=== PATIENT | male | born 1960 | race Caucasian/White ===

== ENCOUNTER 2022-11-22 08:55 | Inpatient (IN) | payer OTHER, SELFPAY ==
[2022-11-22] VITALS (20 sets, daily range): BP systolic 71–219; BP diastolic 20–116; PULSE 64–143; RESP 16–20; TEMP 36.4; O2SAT 95–100; BMI 29.7
--- NOTE | ~2022-11-22 | US_ITS ---
EXAMINATION: US renal BI DATE: 11/23/2022 20:43 INDICATION: Acute renal insufficiency TECHNIQUE: Multiple ultrasound grayscale images of the kidneys were obtained. COMPARISON: None. FINDINGS: The right kidney measures 11.7 x 5.9 x 5.5 cm. The left kidney measures 11.5 x 5.7 x 6.5 cm. The kidn eys demonstrate normal echogenicity. There is no hydronephrosis in either kidney. No stones identifi ed. The bladder is not visualized, likely decompressed.. IMPRESSION: 1. Normal kidneys without hydronephrosis. Reviewed, dictated and finalized at location A. COMMUNICATIONS
--- NOTE | ~2022-11-22 | US_ITS ---
Limited Abdominal Sonogram: Real-time sonographic imaging of the right upper quadrant was performed. Clinical History: Abnormal LFTs Findings: The liver appears mildly echogenic, with no evidence of mass lesion or bile duct dilatatio n. Main portal vein demonstrates normal direction of flow. The gallbladder is well distended, without visible gallstone. 4 mm gallbladder wall polyp noted. Gallbladder wall is mildly thickened to 4 mm. The common bile duct measures 7 mm. The visualized pancreas, aorta, and IVC are unremarkable. Right pleural effusion noted. Impression: Right pleural effusion noted. 4 mm gallbladder wall polyp. Mild gallbladder wall thickening, nonspecific. No visible gallstone evident, and there is negative so nographic Sepulveda's sign. Reviewed, dictated and finalized at [facility]. LLIGENCE OPERATIONS Impression: Right pleural effusion noted. 4 mm gallbladder wall polyp. Mild gallbladder wall thickening, nonspecific. No visible gallstone evident, an d there is negative sonographic Sepulveda's sign.
--- NOTE | ~2022-11-22 | CT_ITS ---
EXAMINATION: CT abdomen pelvis wo con DATE: 11/23/2022 12:27 INDICATION: Difficulty urinating. TECHNIQUE: Computed tomography (CT) of the abdomen and pelvis was performed without intravenous contr ast. Automated exposure control and iterative reconstruction technique were employed. The dose-length product was 771.53 mGy-cm. COMPARISON: None. FINDINGS: The visualized portions of the lung bases demonstrate moderate-sized pleural effusions. The re is dependent atelectasis bilaterally. Cardiomegaly is noted. There are coronary artery calcificati ons. No pericardial effusion. There is diffuse hepatic steatosis. The spleen is normal. The gallbladd er is normal in size. Gallbladder wall thickening is likely secondary to interstitial edema. The panc reas, adrenal glands, and kidneys are normal. There is no urolithiasis. There are bilateral inguinal hernias containing fat. There are no dilated loops of bowel. The appendix is normal. There are no pat hologically enlarged lymph nodes. There is trace ascites. There is moderate lumbar spondylosis. IMPRESSION: 1. Moderate-sized pleural effusions. 2. Diffuse hepatic steatosis. Reviewed, dictated and finalized at location A. ARCH MANAGER
--- NOTE | ~2022-11-22 | US_ITS ---
EXAMINATION: US venous doppler [facility] DATE: 11/28/2022 12:50 INDICATION: Lower limb swelling. TECHNIQUE: Grayscale ultrasound images without and with compression and Doppler ultrasound images of the bilateral lower extremity veins were obtained. COMPARISON: None. FINDINGS: The visualized portions of right common femoral vein, profunda (deep) femoral vein, femoral vein, pop liteal vein, peroneal veins, posterior tibial veins, and greater saphenous vein outflow are patent. The visualized portions of left common femoral vein, profunda femoral vein, femoral vein, popliteal v ein, peroneal veins, posterior tibial veins, and greater saphenous vein outflow are patent. IMPRESSION: 1. No deep venous thrombosis. Reviewed, dictated and finalized at location A. ING MACHINE OPERATOR
--- NOTE | ~2022-11-22 | XR_ITS ---
EXAMINATION: XR chest 1V portable DATE: 11/22/2022 09:37 INDICATION: Cough. Tachycardia. TECHNIQUE: A single frontal view of the chest was obtained on 2 radiographs. COMPARISON: None. FINDINGS: There is mild atelectasis in right mid and lower lung zones and left lower lung zone. No pl eural effusion or pneumothorax. The heart size is normal. IMPRESSION: 1. Mild atelectasis in right mid and lower lung zones and left lower lung zone. I called this result to Dr. Faust at 9:47 AM. Reviewed, dictated and finalized at location A. MATE HOOPS TRAINER
--- NOTE | ~2022-11-22 | NM_ITS ---
EXAMINATION: NM hollie stress w perfusion DATE: 11/29/2022 10:08 INDICATION: Congestive heart failure. Elevated troponin. TECHNIQUE: Rest images were obtained following intravenous administration of 10.5 mCi Tc99m tetrofosm in (Myoview). The patient was infused intravenously with Lexiscan (regadenoson). Then, 34.3 mCi Tc99m tetrofosmin (Myoview) was administered intravenously, and supine and prone stress images were obtain ed. Data was reconstructed into short axis and horizontal and vertical long axis SPECT images. Gated SPECT images were also obtained. COMPARISON: CT abdomen and pelvis 11/23/2022 FINDINGS: There is no definite reversible or fixed perfusion abnormality to suggest ischemia or infar ction. There is no segmental wall motion abnormality. Left ventricular ejection fraction measures 3 7%. IMPRESSION: 1. No definite ischemia or infarct. 2. Global hypokinesis with left ventricular ejection fraction measuring 37%. Reviewed, dictated and finalized at location A. GER REPORTING
--- NOTE | ~2022-11-22 | XR_ITS ---
XR chest 1V portable DATE: 11/28/2022 08:05 INDICATION: Congestive heart failure TECHNIQUE: Portable upright AP chest on November 28, 2022 at 0753 hours COMPARISON: November 22, 2022 portable AP chest at 0934 hours FINDINGS: There is prominence of the minor fissure consistent with subpleural edema. There is pulmona ry vascular congestion and redistribution. Delma B-lines are noted, likely consistent with pulmonary interstitial edema. There are bilateral predominantly central and particularly lower lung zone infil trates and/or atelectasis, which may be due to pulmonary edema; pneumonia and atelectasis are not exc luded. There is minimal if any pleural effusion. No pneumothorax. Heart size appears within normal range. IMPRESSION: Pulmonary vascular congestion, subpleural edema, pulmonary interstitial edema Bilateral central and particularly lower lung zone infiltrates which may be due to pulmonary edema; p neumonia and atelectasis are not excluded The infiltrates are increased since November 2022 Reviewed, dictated and finalized at location A. HANDISE APPRAISER IMPRESSION: Pulmonary vascular congestion, subpleural edema, pulmonary intersti tial edema Bilateral central and particularly lower lung zone infiltrates which may be due to pulmonary edema; pneumonia and atelectasis are not excluded The infiltrates are increased since November 2022
--- NOTE | 2022-11-22 09:06 | ECG_ITS ---
Measurements Intervals [place] Rate: 143 P: NH: 0 QRS: 47 QRSD: 95 T: 0 QT: 189 QTc: 291 Interpretive Statements ATRIAL FLUTTER/TACHYCARDIA WITH RAPID VENTRICULAR RESPONSE SEPTAL MYOCARDIAL INFARCTION , OF INDETERMINATE AGE [40+ ms Q WAVE IN V1/V2] NO PREVIOUS ECG AVAILABLE FOR COMPARISON Electronically Signed On 11-22-2022 16:13:06 SELLING UNDERWRITER by Teo Cho M.D.
--- NOTE | 2022-11-22 09:07 | ED.GENADULT ---
HPI - General Adult General Chief complaint: Arrhythmia/Palpitations Stated complaint: Elevated heart rate Time Seen by Provider: 11/22/22 08:58 Source: RN notes reviewed History of Present Illness HPI narrative: Patient presents emergency department from home for chest heaviness. Patient states approximately a week and a half ago he began to feel like he had bronchitis he states the bronchitis was a feeling of some heaviness in his chest states he also had some mild nasal congestion but does have a history of consistent nasal congestion states at that time he did begin taking Mucinex DM but did not take it today but has been taking it regularly over the past week and a half patient states he does check his blood pressure at home and has a wrist monitor and has been noticing that his heart rate has been elevated over the past 1 week he states that he began to have some more heaviness in his chest last night and that prompted her to come to the emergency department states he has not had any coughing he denies any swelling of his legs he denies any fevers or chills sore throat cough shortness of breath abdominal pain nausea vomiting or any other symptoms he denies any previous cardiac history Related Data Home Medications Medication Instructions Recorded Confirmed No Home Medications 11/22/22 11/22/22 Allergies Allergy/AdvReac Type Severity Reaction Status Date / Time No Known Allergies Allergy Verified 11/22/22 09:55 Review of Systems Review of Systems: Gen.: Denies fevers or chills ENT: D reports nasal congestion Respiratory: Denies shortness of breath or cough CV: See HPI GI: Denies abdominal pain nausea, emesis or diarrhea Musculoskeletal: Denies back pain or muscle pain Neuro: Denies numbness, tingling, weakness or focal weakness Skin: Denies rash Except as documented, all other systems reviewed and negative [facility] Past Medical History Medical History (Updated 11/22/22 @ 13:24 by Chad Faust DO) Patient denies significant medical history Family History Family History (Updated 11/22/22 @ 12:58 by Lindsey Mckeon RN) Sibling Asthma Mother Diabetes mellitus Father Hypertension Social History Social History (Updated 11/22/22 @ 09:20 by Chad Faust DO) Smoking status: Former smoker Tobacco type: cigarettes Alcohol intake: never Substance use: never Lack of Transportation: No Lack of Food: Never True Current Housing: I Have Housing Concerned About Future Housing: No Difficulty Paying Gas/Electric Bills: No Difficulty Paying for Meds: No Currently Unemployed: No Education: Bachelor's Degree Difficulty w/ Childcare or Family Care: No Spiritual care concerns: No Exam Narrative: APPEARANCE: No acute distress, nontoxic, resting in bed EYES: EOMI HEENT: Normocephalic, atraumatic, nares patent, oral mucosa moist, no erythema or exudate posterior pharynx RESPIRATORY: No respiratory distress Clear to auscultation bilaterally with no rhonchi wheezing or rales. CARDIOVASCULAR: Tachycardic and regular without murmurs rubs or gallops. ABDOMINAL: Soft, nontender, nondistended, no rebound or guarding MUSCULOSKELETAl: Moves all extremities. No clubbing, cyanosis 2+ edema bilateral lower extremities NEURO: Awake and alert. Following commands, speech normal, no focal deficits SKIN:: Warm, dry. No rashes lesions or abrasions PSYCHIATRIC: Normal affect/mood, Course Course Emergency Course: Called and discussed with Dr. Parish presentation work-up discussed as a flutter likely present for the past week he requested patient be started on Cardizem drip at this time we will see him for request patient received single dose of Lovenox Discussed with Dr. Jha presentation work-up agrees with admission to hospital Discussed with patient and family results of workup and diagnosis. Discussed need for admission. Patient and family understand and agree to current treatment renee
[2022-11-22 09:15] LABS: Basophils Percent Auto 0.5 % (0.2-1.2); Eosinophils Absolute Auto 0.1 K/mm3 (0-0.3); Eosinophils Percent Auto 0.7 % (0-4.4); Hemoglobin 14.3 g/dL (14.0-18.0); Immature Granulocyte Absolute 0.01 K/mm3 (0.00-0.031); Immature Granulocyte Percent A 0.1 % (0-0.5); Lymphocytes Absolute Auto 1.59 K/mm3 (0.9-3.2); Lymphocytes Percent Auto 21.3 % (18.3-44.2); Mean Corpuscular HGB Conc 33.3 g/dl (32-36); Mean Corpuscular Hemoglobin 31.8 pg (26-34); Mean Corpuscular Volume 95.6 fl (80-100); Monocytes Absolute Auto 0.8 K/mm3 (0.1-0.6); Monocytes Percent Auto 11.3 % (2.6-8.5); Neutrophils Absolute Auto 4.9 K/mm3 (1.3-6.7); Neutrophils Percent Auto 66.1 % (45.5-73.1); Platelet Count Result 305 k/mm3 (150-375); Red Cell Distribution Width 13.4 % (11.5-14.5); White Blood Count 7.5 K/mm3 (4.5-10.0)
[2022-11-22 09:27] LABS: INR 1.1; Prothrombin Time 13.5 Seconds (11.1-14.7)
[2022-11-22 09:28] LABS: Alanine Aminotransferase 37 U/L (6-50); Albumin Level 4.1 g/dL (3.5-5.1); Alkaline Phosphatase 58 U/L (38-126); Anion Gap 10 mmol/L (8-16); Aspartate Amino Transferase 36 U/L (17-59); Bilirubin,Total 0.9 mg/dL (0.2-1.3); Blood Urea Nitrogen 15 mg/dL (9-20); Calcium 9.1 mg/dL (8.4-10.2); Carbon Dioxide 27 mmol/L (22-30); Chloride 96 mmol/L (98-107); Estimated CRCL calculation 82 ml/min; Estimated Glomerular Filt Rate > 60; Glucose 323 mg/dL (65-110); Lipase 89 U/L (23-300); Magnesium 1.6 mg/dL (1.6-2.3); Partial Thromboplastin Time 26.3 SECONDS (22.3-36.8); Potassium 4.7 mmol/L (3.4-5.0); Sodium 133 mmol/L (137-145)
[2022-11-22 09:38] LABS: Troponin I 0.018 ng/mL (0.000-0.034)
[2022-11-22] MEDS: dilTIAZem 100 MG/100 ML 100 MG/100 ML BAG IV CONT (10:08)
[2022-11-22 10:09] LABS: NT Pro B Type Natriuretic Pept 1930 pg/mL (19.9-100)
[2022-11-22 10:27] LABS: Influenza A QL RT-PCR Negative (Negative); Influenza B QL RT-PCR Negative (Negative); SARS-CoV-2 RNA PCR Negative
[2022-11-22] MEDS: ENOXAPARIN 100 MG/ML SYRINGE 94 MG SUB-Q (11:57)
--- NOTE | 2022-11-22 12:52 | ADMGEN ---
This patient, Oscar Dodd, was admitted to IMU Room 209-01. Patient/family oriented to hospital policies and general routines including ID bracelet, bed and alarms, visiting hours, pain management, procedures, bathroom and other care routines, personal items, smoking policy, room service/diet, and visiting hours. Information on how to activate the Rapid Response Team has been discussed. Patient/Family are encouraged to report perceived risks to care and to ask questions if they do not understand what they are told or what they should do.
--- NOTE | 2022-11-22 13:00 | PM.IMHP ---
H&P: HPI History of Present Illness Date/Time: 11/22/22 13:00 Chief Complaint: Fast heart rate. Narrative: This is a pleasant 62-year-old male with hypertension and diabetes who presented to the emergency department for evaluation fast heart rate. Patient provided the following history. He has had mild chest congestion and heaviness for the past 1.5 weeks and he has been taking Mucinex DM and Zyrtec as he initially attributed to his sinuses draining. He tells me that it feels as though he has fluid stuck in his throat and upper chest though he has not been able to cough anything up. He has also had some nausea and mild shortness of breath with exertion. Guga-uoi-nrnlpfy medications have not helped and he went to an urgent care today for evaluation as he thought he was perhaps developing bronchitis. He denies fever, sinus congestion, productive cough, vomiting, and diarrhea. There he was found to be tachycardic and he was directed to the emergency department. EKG in the ED showed atrial flutter with rapid ventricular response been started on a Cardizem drip with some improvement in his rate. He is being admitted in this setting for further workup. He has no known history of cardiac dysrhythmia though he has noticed that his heart rate has been elevated over the past 1 week when checking his blood pressures daily. He is also noticed that his glucose has been creeping up over the past year and he has had readings over 250 recently. He is not currently on medication for his hypertension or diabetes as he recently moved to the area and he has not yet established with a primary care doctor. He denies significant caffeine and alcohol use. No known history or concerns for sleep apnea. No history of thyroid disease. He has not had exertional chest pain or shortness of breath. Review of Systems Review of Systems: Twelve systems were reviewed and are negative except for as per HPI. [facility] Past Medical History Medical History (Updated 11/22/22 @ 22:23 by Ellen Del Toro PA-C) Hyperlipidemia Hypertension Type 2 diabetes mellitus Surgical History Surgical History (Updated 11/22/22 @ 22:23 by Ellen Del Toro PA-C) No significant past surgical history Family History Family History Sibling Asthma Mother Diabetes mellitus Father Hypertension Social History Social History (Updated 11/22/22 @ 22:24 by Ellen Del Toro PA-C) Social History: Surrogate medical decision maker: Jeniffer Dodd, sister. Code status: Full code. Smoking status: Former smoker Tobacco type: cigarettes Alcohol intake: never Substance use: never Lack of Transportation: No Lack of Food: Never True Current Housing: I Have Housing Concerned About Future Housing: No Difficulty Paying Gas/Electric Bills: No Difficulty Paying for Meds: No Currently Unemployed: No Education: Bachelor's Degree Difficulty w/ Childcare or Family Care: No Spiritual care concerns: No Meds Home Medications and Allergies Home Medications Medication Instructions Recorded Confirmed Type No Home Medications 11/22/22 11/22/22 History Allergies Allergy/AdvReac Type Severity Reaction Status Date / Time No Known Allergies Allergy Verified 11/22/22 09:55 Vital Signs Vital Signs - 24 hr 11/22/22 09:10 11/22/22 10:08 11/22/22 09:54 Temperature 97.5 F L Pulse Rate 143 H 142 H 143 H Respiratory Rate 16 17 Blood Pressure 142/116 H 219/99 H 127/103 H Pulse Oximetry 100 97 Oxygen Delivery Room Air 11/22/22 11:03 11/22/22 11:58 11/22/22 12:58 Temperature Pulse Rate 143 H 142 H Respiratory Rate 18 17 Blood Pressure 119/93 H 113/97 H Pulse Oximetry 95 97 Oxygen Delivery Room Air 11/22/22 12:23 11/22/22 12:42 11/22/22 13:35 Temperature 97.6 F Pulse Rate 140 H 142 H 143 H Respiratory Rate 16 16 Blood Pressure 115/95 H 112/88 Pulse Oximetry 99 98 Oxyg
[2022-11-22 13:32] LABS: Troponin I 0.017 ng/mL (0.000-0.034)
[2022-11-22] MEDS: METOPROLOL TARTRATE 25 MG TABLET PO ×2 (13:35→20:15)
[2022-11-22 14:38] LABS: Cholesterol 145 mg/dL (0-200); HDL Direct 39 mg/dL; Triglycerides 110 mg/dL (<150)
[2022-11-22 14:49] LABS: LDL Cholesterol Direct 75 mg/dL
[2022-11-22 15:38] LABS: Troponin I 0.017 ng/mL (0.000-0.034)
--- NOTE | 2022-11-22 16:11 | PC.NURSE ---
Spoke with Dr. Parish regarding Cardizem drip. Cardizem drip was order by ED, which is a one bag order. New order to continue Cardizem gtt at 10mg/hr, order an apnea link tonight to r/o JOSHUA, and to start Metoprolol Tartrate 25mg PO q8h, holding for SBP <95
--- NOTE | 2022-11-22 16:14 | PM.CNCAR ---
Assessment and Plan Assessment and plan (1) Atrial flutter with rapid ventricular response: Code(s): I48.92 - Unspecified atrial flutter Status: Acute Assessment and Plan: Patient presents with persistent atrial flutter with rapid ventricular response with suspected duration of nearly 2 months. He is not decompensated heart failure clinically but has not elevated pro BNP of 1930 which is very likely related to persistent atrial flutter with RVR. Serial troponins are negative to date and he denies clear anginal symptoms in that his symptoms have been more less constant. Discussed the pathophysiology and management options of atrial tachyarrhythmias including atrial flutter namely medications, rate versus rhythm control, STEVAN prior to cardioversion to exclude intracardiac thrombus and associated risks and benefits. Discussed importance of systemic anticoagulation as his CHADS2 Vasc score is at least 2 for hypertension and diabetes mellitus. Discussed importance of anticoagulation to reduce embolic stroke risk balance with associated bleeding risk. We also discussed managed with AV michelle blocking agents as well as antiarrhythmic therapy as clinically relevant. We discussed importance of compliance with follow-up, medications and anticoagulation moving forward. Discussed risks, benefits and alternatives to STEVAN. Continue diltiazem infusion for now, add oral beta-jakub for additional heart rate control. NPO after midnight for anticipated STEVAN guided cardioversion in attempt to restore sinus rhythm tomorrow morning. Further recommendation to follow. We discussed risk for tachycardia induced cardiomyopathy given persistence of tachyarrhythmia as well on the need for heart rate and rhythm control. We discussed additional management with electrophysiology for catheter based approaches including ablation of atrial flutter although EP services are not available at this institution. Patient verbalized understanding and agreed with plan of care. All questions answered to his satisfaction. Continue systemic anticoagulation transition to oral anticoagulant Eliquis 5 mg b.i.d.. Care coordination to cyr with insurance. TSH normal, electrolytes stable. (2) Diabetes mellitus: Code(s): E11.9 - Type 2 diabetes mellitus without complications Status: Acute Assessment and Plan: Poorly controlled, management per primary service. Hyperglycemic at presentation. Check hemoglobin A1c. (3) Hypertension: Code(s): I10 - Essential (primary) hypertension Status: Acute Assessment and Plan: BP elevated initially improvement diltiazem infusion. History of Present Illness History of Present Illness Consult date/time: Date of service: 11/22/22 16:14 Requesting physician: Chad Faust, Consult reason: Other (Atrial flutter with RVR) Reason For Visit: atrial flutter with rvr,chf Narrative: Patient is a very pleasant 62-year-old male with a past medical history significant for diabetes mellitus, hypertension, and hyperlipidemia who reports he 1st noted an elevated heart rate when at the gym in early September 2020 but did not return to exercise subsequently. He also did not check his heart rate or blood pressure until recently perhaps 1 week or so ago where again he noted his heart rate was 120-140 beats per minute. He denied palpitations at any time. He then began to notice worsening fatigue throughout the day, some exertional dyspnea and mild discomfort diffusely in his chest that noted exacerbation. Due to progressive nature of his symptoms of fatigue and the fact that he knows heart rate was elevated he then came to the emergency department for further evaluation. He had a dry cough and felt he might have had bronchitis a given persistence of symptoms felt he should seek attention. He denies significant lower extremity edema, orthopnea PND. No near-syncope, syncope or significant dizziness. He has
[2022-11-22] MEDS: INSULIN ASPART (*BKC) 100 UNITS/ML SUB-Q (16:36)
[2022-11-22] MEDS: MAGNESIUM SULF 2 GM/WATER 50ML 2 GM/50 ML BAG IVPB (16:36)
[2022-11-22 16:41] LABS: Glucose Point of Care 361 mg/dl (65-105)
[2022-11-22] MEDS: ONDANSETRON INJ 4 MG/2 ML VIAL IV PUSH (17:41)
[2022-11-22] MEDS: dilTIAZem 100 MG/100 ML 100 MG/100 ML BAG 10 MG IV CONT (20:14)
[2022-11-22] MEDS: APIXABAN 5 MG TABLET PO (20:15)
[2022-11-22] MEDS: ACETAMINOPHEN 325 MG TABLET 650 MG PO (20:21)
[2022-11-22 20:40] LABS: Glucose Point of Care 271 mg/dl (65-105)
[2022-11-23] VITALS (23 sets, daily range): BP systolic 84–115; BP diastolic 59–76; PULSE 55–111; RESP 20–21; TEMP 35.6–37; O2SAT 96–100
--- NOTE | 2022-11-23 | ECHO_ITS ---
Patient Info Name: Oscar Dodd Age: 62 years : 1960 Gender: Male Ht: 69 in Wt: 206 lbs BSA: 2.16 m2 HR: 66 bpm BP: 100 / 74 mmHg Heart Rhythm: Atrial Flutter Technical Quality: Good Exam Date: 11/23/2022 9:40 AM Exam Location: [facility] Pulmonary Exam Room: 209 Patient Status: Inpatient Admit Date: 11/23/2022 Staff Ordering Physician: Jose Ramon Parish MD Records Management Director: Brittanie Harley RDCS Attending Provider: Luisa Jha DO Referring Physician: Jem BEARDEN; Exam Type: CA echo doppler color flow Study Info Indications - atrial flutter Complete two-dimensional, color flow and Doppler transthoracic echocardiogram is performed. Summary 1. Complete two-dimensional, color flow and Doppler transthoracic echocardiogram is performed. 2. Right ventricular chamber dimension is normal. 3. Right ventricular systolic function is moderately reduced. TAPSE 1.3. 4. Left ventricular systolic function is moderately reduced, estimated at 35-40%. 5. Left ventricular chamber dimension is normal. 6. There is no increased left ventricular wall thickness. 7. The left ventricular diastolic function is indeterminate. 8. Left atrial chamber dimension is moderately enlarged. 9. Right atrial chamber dimension is moderately enlarged. 10. There is mild mitral valve regurgitation. 11. There is mild to moderate tricuspid valve regurgitation. 12. Mild pulmonary hypertension, estimated pulmonary arterial systolic pressure is 35 mmHg. Left Ventricle Left ventricular chamber dimension is normal. Left ventricular systolic function is moderately reduced, estimated at 35-40%. There is no increased left ventricular wall thickness. The left ventricular diastolic function is indeterminate. Right Ventricle Right ventricular chamber dimension is normal. Right ventricular systolic function is moderately reduced. TAPSE 1.3. Left Atria Left atrial chamber dimension is moderately enlarged. Right Atria Right atrial chamber dimension is moderately enlarged. Aortic Valve The aortic valve is trileaflet. There is no aortic valve stenosis. There is no aortic valve regurgitation. There is mild aortic valve calcification. Pulmonic Valve The pulmonic valve is not well visualized. Mitral Valve The mitral valve has thickened leaflets. There is mild mitral valve regurgitation. The mitral valve annulus is mildly calcified. Tricuspid Valve The tricuspid valve leaflets are normal. There is mild to moderate tricuspid valve regurgitation. Mild pulmonary hypertension, estimated pulmonary arterial systolic pressure is 35 mmHg. Pericardium/Pleural Left pleural effusion. The pericardium appears normal. There is no pericardial effusion. Inferior Vena Cava Normal inferior vena cava with >50% collapse upon inspiration consistent with normal right atrial pressure, 5 mmHg. Aorta The aortic root size at the sinus of Valsalva is normal. There is mild-moderate aortic atherosclerosis. Left Ventricular Outflow Tract Name Value Normal LVOT 2D LVOT Diameter 2.1 cm LVOT Doppler LVOT Peak Gradient
[2022-11-23] MEDS: SODIUM CHLORIDE 0.9% IV 1,000 ML 999 ML IV CONT (00:04)
[2022-11-23 00:47] LABS: Glucose Point of Care 281 mg/dl (65-105)
[2022-11-23] MEDS: MIDODRINE HCL 10 MG TABLET PO (01:29)
[2022-11-23] MEDS: MIDODRINE HCL 2.5 MG TABLET 5 MG PO (01:29)
[2022-11-23 05:01] LABS: Anion Gap 17 mmol/L (8-16); Blood Urea Nitrogen 18 mg/dL (9-20); Calcium 8.2 mg/dL (8.4-10.2); Carbon Dioxide 17 mmol/L (22-30); Chloride 95 mmol/L (98-107); Estimated CRCL calculation 36 ml/min; Estimated Glomerular Filt Rate 36; Glucose 248 mg/dL (65-110); Magnesium 2.2 mg/dL (1.6-2.3); Potassium 5.9 mmol/L (3.4-5.0); Sodium 129 mmol/L (137-145)
--- NOTE | 2022-11-23 07:32 | P.PNIM_ITS ---
Progress Note: A&P Assessment and Plan (1) Atrial flutter with rapid ventricular response: Code(s): I48.92 - Unspecified atrial flutter Status: Acute Assessment and Plan: Cardiology consulted and managing. * He was treated with IV Cardizem, but this was stopped around 2300 on 11/22 due to hypotension BP 71/20 and bradycardia HR 54 bpm. * Metoprolol tartrate 25 mg Q8 hours was also initiated by Cardiology, but to be held unless HR sustained >100 bpm. * [id number] 2, HAS-BLED 1. He was treated with Lovenox 1 mg/kg SQ x1 in the ED and started on Eliquis upon admission. * Plan for STEVAN with cardioversion was deferred due to JACLYN, hyperkalemia and acute nausea. (2) Hypertension: Qualifiers: Hypertension type: primary hypertension Qualified Code(s): I10 - Essential (primary) hypertension Code(s): I10 - Essential (primary) hypertension Status: Chronic Assessment and Plan: Now with hypotension after Cardizem drip started. Monitor off antihypertensives. (3) Hyperlipidemia: Qualifiers: Hyperlipidemia type: mixed hyperlipidemia Qualified Code(s): E78.2 - Mixed hyperlipidemia Code(s): E78.5 - Hyperlipidemia, unspecified Status: Chronic Assessment and Plan: LDL 75, HDL 39, triglycerides 110 * He reports that he is not been on cholesterol medication in >5 years (4) Type 2 diabetes mellitus: Qualifiers: Diabetes mellitus halfway insulin use: without superintendent container terminal use Diabetes mellitus complication status: with hyperglycemia Qualified Code(s): E11.65 - Type 2 diabetes mellitus with hyperglycemia Code(s): E11.9 - Type 2 diabetes mellitus without complications Status: Chronic Assessment and Plan: Uncontrolled. He was previously taking metformin but not in the past 5 years. * A1c 10%, glucose 245 to 323. * We discussed basal-bolus insulin therapy and he does not want to start insulin injections. * Will plan to resume metformin if patient's renal function improves by discharge. * Given reduced EF on echocardiogram, he would benefit from initiation of SGLT-2 medication prior to discharge. * For now will treat with lantus 10 units at HS, aspart low-dose sliding scale TID meals. Adjust therapy as needed for goal glucose <180 mg/dL. * Accu-checks AC/HS with hypoglycemia protocol. (5) JACLYN (acute kidney injury): Code(s): N17.9 - Acute kidney failure, unspecified Status: Acute Assessment and Plan: BUN 18, creatinine 1.9, eGFR 36, K 5.9, bicarb 17, and corrected sodium 131. Significantly increased from admission. UOP appears low 150 mL +2 voids since admission and he was given 1L NS bolus. * 11/23 Repeat BMP 0800 shows creatinine 2.3, K 7.7, bicarb 18, sodium 130. Bicarb drip initiated. * Consult Nephrology and appreciate recommendations. * Urine sodium 23, urine creatinine 262, FENa 0.2% pre-renal. given Echocardiogram findings, judicious fluid resuscitation warranted. * Monitor strict I/O. Patient refused indwelling verdugo catheter. * Bladder scan Q6 hours and straight cath if >300 mL residual. * Check renal US. * CT abd/pelvis w/o contrast without evidence of urinary obstruction. Bladder scan 0 mL per nursing this morning. (6) Hyperkalemia: Code(s): E87.5 - Hyperkalemia Status: Acute Assessment and Plan: K5.9, repeat BMP to ensure accuracy and avoid pseudohyperkalemia, although creatinine significantly increased and this may be secondary to JACLYN. * Repeat BMP 0800 worsening K 7.7. EKG with prolonged QTc 542, repeat EKG improved. * Giv
--- NOTE | 2022-11-23 07:32 | PM.IMPN ---
Progress Note: A&P Assessment and Plan (1) Atrial flutter with rapid ventricular response: Code(s): I48.92 - Unspecified atrial flutter Status: Acute Assessment and Plan: Cardiology consulted and managing. He was treated with IV Cardizem, but this was stopped around 2300 on 11/22 due to hypotension BP 71/20 and bradycardia HR 54 bpm. Metoprolol tartrate 25 mg Q8 hours was also initiated by Cardiology, but to be held unless HR sustained >100 bpm. [id number] 2, HAS-BLED 1. He was treated with Lovenox 1 mg/kg SQ x1 in the ED and started on Eliquis upon admission. Plan for STEVAN with cardioversion was deferred due to JACLYN, hyperkalemia and acute nausea. (2) Hypertension: Qualifiers: Hypertension type: primary hypertension Qualified Code(s): I10 - Essential (primary) hypertension Code(s): I10 - Essential (primary) hypertension Status: Chronic Assessment and Plan: Now with hypotension after Cardizem drip started. Monitor off antihypertensives. (3) Hyperlipidemia: Qualifiers: Hyperlipidemia type: mixed hyperlipidemia Qualified Code(s): E78.2 - Mixed hyperlipidemia Code(s): E78.5 - Hyperlipidemia, unspecified Status: Chronic Assessment and Plan: LDL 75, HDL 39, triglycerides 110 He reports that he is not been on cholesterol medication in >5 years (4) Type 2 diabetes mellitus: Qualifiers: Diabetes mellitus rodent exterminator insulin use: without assisted use Diabetes mellitus complication status: with hyperglycemia Qualified Code(s): E11.65 - Type 2 diabetes mellitus with hyperglycemia Code(s): E11.9 - Type 2 diabetes mellitus without complications Status: Chronic Assessment and Plan: Uncontrolled. He was previously taking metformin but not in the past 5 years. A1c 10%, glucose 245 to 323. We discussed basal-bolus insulin therapy and he does not want to start insulin injections. Will plan to resume metformin if patient's renal function improves by discharge. Given reduced EF on echocardiogram, he would benefit from initiation of SGLT-2 medication prior to discharge. For now will treat with lantus 10 units at HS, aspart low-dose sliding scale TID meals. Adjust therapy as needed for goal glucose <180 mg/dL. Accu-checks AC/HS with hypoglycemia protocol. (5) JACLYN (acute kidney injury): Code(s): N17.9 - Acute kidney failure, unspecified Status: Acute Assessment and Plan: BUN 18, creatinine 1.9, eGFR 36, K 5.9, bicarb 17, and corrected sodium 131. Significantly increased from admission. UOP appears low 150 mL +2 voids since admission and he was given 1L NS bolus. 11/23 Repeat BMP 0800 shows creatinine 2.3, K 7.7, bicarb 18, sodium 130. Bicarb drip initiated. Consult Nephrology and appreciate recommendations. Urine sodium 23, urine creatinine 262, FENa 0.2% pre-renal. given Echocardiogram findings, judicious fluid resuscitation warranted. Monitor strict I/O. Patient refused indwelling verdugo catheter. Bladder scan Q6 hours and straight cath if >300 mL residual. Check renal US. CT abd/pelvis w/o contrast without evidence of urinary obstruction. Bladder scan 0 mL per nursing this morning. (6) Hyperkalemia: Code(s): E87.5 - Hyperkalemia Status: Acute Assessment and Plan: K5.9, repeat BMP to ensure accuracy and avoid pseudohyperkalemia, although creatinine significantly increased and this may be secondary to JACLYN. Repeat BMP 0800 worsening K 7.7. EKG with prolonged QTc 542, repeat EKG improved. Given 10 units IV regular insulin x1, 1 amp D50, and started bicarb drip given mild acidosis and JACLYN 1000 repeat K 6.9. Lokelma started. (7) Cardiomyopathy: Code(s): I42.9 - Cardiomyopathy, unspecified Status: Acute Assessment and Plan: Transthoracic Echocardiogram shows moderately reduced LV and RV systolic function, EF 35-40%, moderately enlarged LA and RA,
[2022-11-23] MEDS: APIXABAN 5 MG TABLET PO ×2 (08:12→20:17)
[2022-11-23 08:15] LABS: Anion Gap 16 mmol/L (8-16); Blood Urea Nitrogen 19 mg/dL (9-20); Calcium 8.3 mg/dL (8.4-10.2); Carbon Dioxide 18 mmol/L (22-30); Chloride 94 mmol/L (98-107); Estimated CRCL calculation 33 ml/min; Estimated Glomerular Filt Rate 29; Glucose 234 mg/dL (65-110); Potassium 7.7 mmol/L (3.4-5.0); Sodium 128 mmol/L (137-145)
[2022-11-23 08:26] LABS: Glucose Point of Care 211 mg/dl (65-105)
[2022-11-23] MEDS: INSULIN HUMAN REGULAR (*BKC) 100 UNITS/ML 10 UNITS IV PUSH ×2 (08:31→17:19)
[2022-11-23] MEDS: DEXTROSE 50% 25 GM/50 ML SYRINGE IV PUSH ×2 (08:32→17:18)
[2022-11-23] MEDS: SODIUM CHLORIDE 0.9% IV 500 ML IV CONT (08:35)
--- NOTE | 2022-11-23 08:45 | PC.NURSE ---
Pt stating that he feels like he needs to urinate. Patti Callahan NP at bedside requesting bladder scan. Bladder scan completed with no urine showing in bladder. Pt states I still feel like I need to pee. Let me try again. Pt ambulated to bathroom with no results with urination. ANA Armstrong notified of situation. New order to try to place Odell catheter on patient for accurate I&O's, if pt isn't agreeable to Odell catheter, please straight cath to help with patient's comfort. Discussed order with patient and pt is refusing both types of catheter at this time. Pt stated I really feel like I am voided. I don't feel like I have to go anymore. I feel fine. RN and pt in agreement to see if the IV bolus will help with patient's urination. ANA Armstrong notified of situation. Continue to wait for Chalk Extruding Machine Operator at this time to see if we are preceding with STEVAN for today. If STEVAN is on hold, patient may eat and drink.
[2022-11-23] MEDS: CALCIUM GLUC 1,000 MG/NS 50 ML 1,000 MG/50 ML BAG 100 MG IVPB (08:48)
--- NOTE | 2022-11-23 08:57 | ECG_ITS ---
Measurements Intervals [place] Rate: 70 P: IN: 0 QRS: 47 QRSD: 96 T: 163 QT: 502 QTc: 542 Interpretive Statements ATRIAL FLUTTER/TACHYCARDIA LOW QRS VOLTAGE IN EXTREMITY LEADS [QRS DEFLECTION < 0.5 mV IN LIMB LEADS] ST DEVIATION AND MODERATE T-WAVE ABNORMALITY, CONSIDER ANTEROLATERAL ISCHEMIA [-0.1+ mV T WAVE IN V3-V6] COMPARED TO ECG 11/22/2022 09:04:10 NO SIGNIFICANT CHANGES Electronically Signed On 11-23-2022 15:39:51 CAUSTIC CRESYLATE SHIFT SUPERINTENDENT by Teo Cho M.D.
[2022-11-23] MEDS: SODIUM BICARBONATE 8.4% 150 MEQ in WATER, STERILE FOR INJECTION 950 ML 100 MEQ IV CONT (09:26)
--- NOTE | 2022-11-23 10:00 | ECG_ITS ---
Measurements Intervals [place] Rate: 86 P: IA: 0 QRS: 63 QRSD: 97 T: 188 QT: 407 QTc: 489 Interpretive Statements ATRIAL FLUTTER/TACHYCARDIA LOW QRS VOLTAGE IN EXTREMITY LEADS [QRS DEFLECTION < 0.5 mV IN LIMB LEADS] ST DEVIATION AND MODERATE T-WAVE ABNORMALITY, CONSIDER ANTEROLATERAL ISCHEMIA [-0.1+ mV T WAVE IN V3-V6] ST DEVIATION AND MODERATE T-WAVE ABNORMALITY, CONSIDER INFERIOR ISCHEMIA [-0.1+ mV T WAVE IN II/aVF] COMPARED TO ECG 11/23/2022 09:08:02 T-WAVE INVERSIONS IN V2-3 HAVE IMPROVED Electronically Signed On 11-23-2022 15:47:08 DESIGN ANALYST by Teo Cho M.D.
[2022-11-23 11:31] LABS: Anion Gap 15 mmol/L (8-16); Blood Urea Nitrogen 21 mg/dL (9-20); Calcium 8.1 mg/dL (8.4-10.2); Carbon Dioxide 18 mmol/L (22-30); Chloride 94 mmol/L (98-107); Estimated CRCL calculation 32 ml/min; Estimated Glomerular Filt Rate 27; Glucose 288 mg/dL (65-110); Potassium 6.9 mmol/L (3.4-5.0); Sodium 127 mmol/L (137-145)
[2022-11-23 12:15] LABS: Glucose Point of Care 284 mg/dl (65-105)
[2022-11-23] MEDS: SODIUM CHLORIDE 0.9% IV 1,000 ML 500 ML IV CONT (12:17)
--- NOTE | 2022-11-23 12:17 | PC.NURSE ---
Pt to CT via wheelchair, IV fluids infusing
[2022-11-23 12:29] LABS: Creatinine Urine 261.8 mg/dL; Urea Random Urine 328 MG/DL
[2022-11-23 12:30] LABS: Sodium Urine Random 23 meq/L
--- NOTE | 2022-11-23 13:13 | P.CONNP_ITS ---
Assessment and Plan Assessment and plan (1) JACLYN (acute kidney injury): Code(s): N17.9 - Acute kidney failure, unspecified Status: Acute Assessment and Plan: * presumably due to hypotensive episode overnight (down to 80s systolic) * this was likely worsened by associated afib, bradycardia, and underlying cardiomyopathy * evaluation to date: * urine electrolytes prerenal (could just be reflective of diminished EF) * urine eosinophils pending * renal ultrasound pending * CPK pending * complicated by severe hyperkalemia (see #2) * follow trend of hemodynamics * follow repeat labs and UOP (2) Hyperkalemia: Code(s): E87.5 - Hyperkalemia Status: Acute Assessment and Plan: * quite severe/profound as noted by recent testing * although related to #1, the severity of this issue seems out of proportion to his JACLYN/ARF * other possible issue?? * check CPK * r/o hemolysis * agree with bicarb gtt as well as lokelma for now * follow serial K+ levels (3) Atrial flutter with rapid ventricular response: Code(s): I48.92 - Unspecified atrial flutter Status: Acute Assessment and Plan: * Cardiology following * cardioversion on hold given #1 and #2 (4) Cardiomyopathy: Code(s): I42.9 - Cardiomyopathy, unspecified Status: Acute Assessment and Plan: * as noted by Echo * Cardiology following (5) Hypotension: Code(s): I95.9 - Hypotension, unspecified Status: Acute Assessment and Plan: * beter at this time * off BP medications * follow hemodynamics (6) Diabetes mellitus: Qualifiers: Diabetes mellitus type: type 2 Diabetes mellitus agile qa tester insulin use: without agile qa tester use Diabetes mellitus complication status: with other specified complication Qualified Code(s): E11.69 - Type 2 diabetes mellitus with other specified complication Code(s): E11.9 - Type 2 diabetes mellitus without complications Status: Chronic Assessment and Plan: * follow accuchecks * glycemic control per hospitalists Long extensive discussion ( greater than 20 minutes) with the patient regarding the seriousness of his acute kidney injury/acute renal failure as well as his significant / severe hyperkalemia with ongoing medical therapy/treatment to correct these issues. Hopefully, medical management will maintain stability in his potassium level for fear that if it continues to run this high despite conservative therapy, he may require renal replacement therapy/dialysis. Will continue to follow. History of Present Illness Reason for Consult Consult date: 11/23/22 Reason for consult: acute renal failure and hyperkalemia Chief Complaint Chief complaint: atrial flutter with rvr,chf History of Present Illness Narrative: The patient is a 62-year-old male with a past medical history as outlined below who presented to [facility] due to palpitations/fast heart rate. For the past week and a half, the patient has had issues with chest congestion and heaviness and has been taking Mucinex DM as well as dear tech in the hopes that this would treat the underlying problem. The symptoms have present thems elves as a sensation of fluid stuck in his throat and upper chest even though he has somewhat of a productive cough. He also reports some mild nausea and shortness of breath particularly with exertional activities. He thought he was developing bronchitis so he presented to a urgent care center for further assessment. He was noted to be tachycardic
--- NOTE | 2022-11-23 13:13 | PM.CNNEP ---
Assessment and Plan Assessment and plan (1) JACLYN (acute kidney injury): Code(s): N17.9 - Acute kidney failure, unspecified Status: Acute Assessment and Plan: presumably due to hypotensive episode overnight (down to 80s systolic) this was likely worsened by associated afib, bradycardia, and underlying cardiomyopathy evaluation to date: urine electrolytes prerenal (could just be reflective of diminished EF) urine eosinophils pending renal ultrasound pending CPK pending complicated by severe hyperkalemia (see #2) follow trend of hemodynamics follow repeat labs and UOP (2) Hyperkalemia: Code(s): E87.5 - Hyperkalemia Status: Acute Assessment and Plan: quite severe/profound as noted by recent testing although related to #1, the severity of this issue seems out of proportion to his JACLYN/ARF other possible issue?? check CPK r/o hemolysis agree with bicarb gtt as well as lokelma for now follow serial K+ levels (3) Atrial flutter with rapid ventricular response: Code(s): I48.92 - Unspecified atrial flutter Status: Acute Assessment and Plan: Cardiology following cardioversion on hold given #1 and #2 (4) Cardiomyopathy: Code(s): I42.9 - Cardiomyopathy, unspecified Status: Acute Assessment and Plan: as noted by Echo Cardiology following (5) Hypotension: Code(s): I95.9 - Hypotension, unspecified Status: Acute Assessment and Plan: beter at this time off BP medications follow hemodynamics (6) Diabetes mellitus: Qualifiers: Diabetes mellitus type: type 2 Diabetes mellitus halfway insulin use: without terminal press operator use Diabetes mellitus complication status: with other specified complication Qualified Code(s): E11.69 - Type 2 diabetes mellitus with other specified complication Code(s): E11.9 - Type 2 diabetes mellitus without complications Status: Chronic Assessment and Plan: follow accuchecks glycemic control per hospitalists Long extensive discussion ( greater than 20 minutes) with the patient regarding the seriousness of his acute kidney injury/acute renal failure as well as his significant / severe hyperkalemia with ongoing medical therapy/treatment to correct these issues. Hopefully, medical management will maintain stability in his potassium level for fear that if it continues to run this high despite conservative therapy, he may require renal replacement therapy/dialysis. Will continue to follow. History of Present Illness Reason for Consult Consult date: 11/23/22 Reason for consult: acute renal failure and hyperkalemia Chief Complaint Chief complaint: atrial flutter with rvr,chf History of Present Illness Narrative: The patient is a 62-year-old male with a past medical history as outlined below who presented to [facility] due to palpitations/fast heart rate. For the past week and a half, the patient has had issues with chest congestion and heaviness and has been taking Mucinex DM as well as dear tech in the hopes that this would treat the underlying problem. The symptoms have present themselves as a sensation of fluid stuck in his throat and upper chest even though he has somewhat of a productive cough. He also reports some mild nausea and shortness of breath particularly with exertional activities. He thought he was developing bronchitis so he presented to a urgent care center for further assessment. He was noted to be tachycardic and EKG demonstrated atrial flutter with rapid ventricular rate and hence the urgent care center directed him to the emergency department for further evaluation / treatment. Repeat EKG in the emergency room demonstrated the atrial flutter with RVR and hence he was started on a Cardizem drip for better rate control. As this apparently is a new finding and he has never had any issues or problems with arrhythmias in the
--- NOTE | 2022-11-23 14:10 | PM.PNCARD ---
Progress Note: A&P Assessment and Plan (1) Atrial flutter with rapid ventricular response: Code(s): I48.92 - Unspecified atrial flutter Status: Acute Assessment and Plan: Patient presents with persistent atrial flutter with rapid ventricular response with suspected duration of nearly 2 months. He is not in decompensated heart failure clinically but has not elevated pro BNP of 1930 which is very likely related to persistent atrial flutter with RVR. Bradycardic response overnight on diltiazem and metoprolol resulting hypotension necessitating discontinuation of diltiazem. Metoprolol has been held as well. Heart rate stable at present as is his BP. Hold metoprolol unless heart rate sustained greater than 100 beats per minute for the time being. He remains on Eliquis for block stroke risk reduction. Monitor for bleeding. Patient is not a candidate for STEVAN guided cardioversion at this time due to hyperkalemia, recent hypotension with acute kidney injury and in particular nauseous with recurrent emesis. (2) Hypotension: Code(s): I95.9 - Hypotension, unspecified Status: Acute Assessment and Plan: As above, patient with hypotension requiring IV fluid resuscitation overnight, discontinuation of diltiazem infusion. AV michelle blocking agents have been held thus far. He has received IV fluids and sodium bicarb has been ordered. Echocardiogram reviewed EF 35-40%. Recheck troponin. Continue telemetry. Monitor BP closely. (3) Cardiomyopathy: Code(s): I42.9 - Cardiomyopathy, unspecified Status: Acute Assessment and Plan: Patient is not decompensated heart failure. However, ED monitor volume status closely but agree with IV hydration given acute kidney injury with hyperkalemia. Review of echocardiogram reveals moderate LV dysfunction EF 35-40% without clear associated wall motion abnormalities. As discussed with the patient yesterday he now has documented LV dysfunction as was potential concern given persistent tachyarrhythmia. While his hypotension with this degree of acute renal failure and associated hyperkalemia is quite dramatic and somewhat unexpected, I suspect is a consequence of his reduced cardiac output and degree of tachycardia dependence. Therefore, when he became more significantly bradycardic his cardiac output dropped significantly resulting in renal hypoperfusion and hypotension resulting in acute kidney injury. I explained this pathophysiology to the patient. Therefore, will lower his heart rate to increase to an extent as tolerated particular given relative hypotension which has improved with IV fluid resuscitation. (4) JACLYN (acute kidney injury): Code(s): N17.9 - Acute kidney failure, unspecified Status: Acute Assessment and Plan: As above. Nephrology consultation appreciated. Continue IV fluid support monitor renal function electrolytes very closely. (5) Hyperkalemia: Code(s): E87.5 - Hyperkalemia Status: Acute Assessment and Plan: Patient has not received medications known to significantly elevated potassium levels and as such our consequence of acute kidney injury. Continue aggressive medical management repeat potassium levels frequently to ensure response and improve safety in this regard. Twelve lead EKG is not consistent with classic acute hyperkalemic changes, however, QT prolongation is noted. Avoid additional QT prolonging drugs. (6) QT prolongation: Code(s): R94.31 - Abnormal electrocardiogram [ECG] [EKG] Status: Acute Assessment and Plan: As above, avoid QT prolonging drugs. QT interval has improved on repeat ECG. Will continue to monitor closely. Repeat 12 ECG in a.m. for potassium levels rise further. (7) Hypertension: Code(s): I10 - Essential (primary) hypertension Status: Chronic Assessment and Plan: BP elevated initially improvement diltiazem infusion. (8) Diabetes mellitus:
--- NOTE | 2022-11-23 14:19 | PC.NURSE ---
Spoke with Dr. Parish regarding PO Metoprolol. New order to hold PO Metoprolol unless HR is >100
[2022-11-23 14:59] LABS: Troponin I 0.108 ng/mL (0.000-0.034)
[2022-11-23 16:26] LABS: Glucose Point of Care 277 mg/dl (65-105)
[2022-11-23 17:00] LABS: Anion Gap 14 mmol/L (8-16); Blood Urea Nitrogen 24 mg/dL (9-20); Calcium 7.7 mg/dL (8.4-10.2); Carbon Dioxide 20 mmol/L (22-30); Chloride 95 mmol/L (98-107); Estimated CRCL calculation 29 ml/min; Estimated Glomerular Filt Rate 24; Glucose 266 mg/dL (65-110); Potassium 7.4 mmol/L (3.4-5.0); Sodium 129 mmol/L (137-145)
[2022-11-23] MEDS: SODIUM ZIRCONIUM CYCLOSILICATE 10 GM POWD.PACK PO ×2 (17:26→20:18)
[2022-11-23] MEDS: TAMSULOSIN HCL 0.4 MG CAPSULE PO (20:17)
[2022-11-23] MEDS: METOPROLOL TARTRATE 25 MG TABLET PO (20:17)
[2022-11-23 20:19] LABS: Glucose Point of Care 288 mg/dl (65-105)
[2022-11-23] MEDS: SODIUM BICARBONATE 8.4% 150 MEQ in WATER, STERILE FOR INJECTION 950 ML 75 MEQ IV CONT (20:24)
[2022-11-23] MEDS: INSULIN GLARGINE (*BKC) 100 UNITS/ML 10 UNITS SUB-Q (20:29)
--- NOTE | 2022-11-23 21:25 | PCRCNOTE ---
pt refusing apnea link on 11/22 and 11/23
[2022-11-23 22:10] LABS: Anion Gap 9 mmol/L (8-16); Blood Urea Nitrogen 28 mg/dL (9-20); Calcium 7.7 mg/dL (8.4-10.2); Carbon Dioxide 25 mmol/L (22-30); Chloride 92 mmol/L (98-107); Estimated CRCL calculation 24 ml/min; Estimated Glomerular Filt Rate 20; Glucose 235 mg/dL (65-110); Potassium 4.8 mmol/L (3.4-5.0); Sodium 126 mmol/L (137-145)
[2022-11-24] VITALS (18 sets, daily range): BP systolic 93–132; BP diastolic 75–105; PULSE 85–135; RESP 16–20; TEMP 35.9–36.4; O2SAT 96–99
[2022-11-24 03:34] LABS: Anion Gap 9 mmol/L (8-16); Blood Urea Nitrogen 30 mg/dL (9-20); Calcium 7.4 mg/dL (8.4-10.2); Carbon Dioxide 27 mmol/L (22-30); Chloride 91 mmol/L (98-107); Estimated CRCL calculation 22 ml/min; Estimated Glomerular Filt Rate 18; Glucose 203 mg/dL (65-110); Sodium 127 mmol/L (137-145)
[2022-11-24 04:53] LABS: Hematocrit 34.3 % (42.0-52.0); Hemoglobin 11.4 g/dL (14.0-18.0); Mean Corpuscular HGB Conc 33.2 g/dl (32-36); Mean Corpuscular Hemoglobin 31.2 pg (26-34); Mean Platelet Volume 10.3 fl (7.4-10.4); Platelet Count Result 125 k/mm3 (150-375); Red Blood Count 3.65 M/mm3 (4.6-6.20); Red Cell Distribution Width 13.5 % (11.5-14.5); White Blood Count 8.3 K/mm3 (4.5-10.0)
[2022-11-24] MEDS: ACETAMINOPHEN 325 MG TABLET 650 MG PO (04:57)
[2022-11-24 05:01] LABS: Albumin Level 3.5 g/dL (3.5-5.1); Alkaline Phosphatase 88 U/L (38-126); Anion Gap 8 mmol/L (8-16); Bilirubin,Total 1.6 mg/dL (0.2-1.3); Blood Urea Nitrogen 31 mg/dL (9-20); Calcium 7.4 mg/dL (8.4-10.2); Carbon Dioxide 28 mmol/L (22-30); Chloride 93 mmol/L (98-107); Creatine Kinase 240 U/L (55-170); Estimated CRCL calculation 23 ml/min; Estimated Glomerular Filt Rate 18; Glucose 193 mg/dL (65-110); Magnesium 1.9 mg/dL (1.6-2.3); Phosphorus 5.7 mg/dL (2.5-4.5); Potassium 4.1 mmol/L (3.4-5.0); Sodium 129 mmol/L (137-145)
[2022-11-24] MEDS: METOPROLOL TARTRATE 25 MG TABLET PO ×2 (05:21→20:49)
[2022-11-24 05:32] LABS: Troponin I 0.214 ng/mL (0.000-0.034)
[2022-11-24 05:45] LABS: Alanine Aminotransferase > 3750 U/L (6-50); Aspartate Amino Transferase > 7500 U/L (17-59)
[2022-11-24 06:37] LABS: Lactate Dehydrogenase > 10000 U/L (120-246)
[2022-11-24 08:03] LABS: Glucose Point of Care 195 mg/dl (65-105)
--- NOTE | 2022-11-24 08:48 | PM.PNCARD ---
Progress Note: A&P Assessment and Plan (1) Atrial flutter with rapid ventricular response: Code(s): I48.92 - Unspecified atrial flutter Status: Acute Assessment and Plan: Patient presents with persistent atrial flutter with rapid ventricular response with suspected duration of nearly 2 months. Initially on diltiazem drip and metoprolol but he developed significant hypotension, therefore diltiazem was discontinued. Currently pursuing rate control strategy with metoprolol. Will increase to 37.5mg q8h with holding parameters as he is not adequately rate controlled. Eliquis currently on hold secondary to significantly elevated liver enzymes and concern for coagulopathy. (2) Hypotension: Code(s): I95.9 - Hypotension, unspecified Status: Acute Assessment and Plan: Improved off diltiazem (3) Cardiomyopathy: Code(s): I42.9 - Cardiomyopathy, unspecified Status: Acute Assessment and Plan: Echocardiogram reveals moderate LV dysfunction EF 35-40% without clear associated wall motion abnormalities. Not in decompensated heart failure at this time. Can initiate medical therapy when his renal function improves. (4) JACLYN (acute kidney injury): Code(s): N17.9 - Acute kidney failure, unspecified Status: Acute Assessment and Plan: Probably related to renal hypoperfusion with LV dysfunction and hypotension. Nephrology consultation appreciated. Continue IV fluid support monitor renal function electrolytes (5) Hyperkalemia: Code(s): E87.5 - Hyperkalemia Status: Acute Assessment and Plan: Resolved (6) QT prolongation: Code(s): R94.31 - Abnormal electrocardiogram [ECG] [EKG] Status: Acute Assessment and Plan: Avoid QT prolonging drugs. QT interval has improved on repeat ECG. Will continue to monitor closely. (7) Hypertension: Qualifiers: Hypertension type: primary hypertension Qualified Code(s): I10 - Essential (primary) hypertension Code(s): I10 - Essential (primary) hypertension Status: Chronic Assessment and Plan: Currently at goal, some hypotension earlier in hospitalization. (8) Diabetes mellitus: Qualifiers: Diabetes mellitus complication status: with other specified complication Diabetes mellitus penitentiary insulin use: without tank terminal gauger use Diabetes mellitus type: type 2 Qualified Code(s): E11.69 - Type 2 diabetes mellitus with other specified complication Code(s): E11.9 - Type 2 diabetes mellitus without complications Status: Acute Assessment and Plan: Poorly controlled, management per primary service. Hyperglycemic at presentation. Hemoglobin A1c elevated at 10%. Subjective Date/time seen: 11/24/22 08:48 Cardiology follow up for atrial flutter Uneventful night. Feels well this morning. Denies any palpitations, shortness of breath, or chest pain. Remains in atrial flutter with rate generally around 110-120. Review of Systems Review of Systems: All systems reviewed & are unremarkable except as noted in HPI and below Constitutional: Constitutional: Reports as per HPI and Reports no additional constitutional complaints Eyes: Eyes: Reports as per HPI and Reports no additional eye complaints ENT: Reports system reviewed and no additional complaints, except as documented and Reports as per HPI Cardiovascular: Cardiovascular: Reports as per HPI and Reports no additional cardiovascular complaints Respiratory: Respiratory: Reports as per HPI and Reports no additional respiratory complaints Gastrointestinal: Gastrointestinal: Reports as per HPI and Reports no additional gastrointestinal complaints Genitourinary: Genitourinary: Reports no additional male genitourinary complaints and Reports as per HPI Musculoskeletal: Musculoskeletal: Reports no additional musculoskeletal complaints and Reports as per HPI Integumentary/Breasts: Skin/Breast: Repo
[2022-11-24 08:57] LABS: INR 3.8; Partial Thromboplastin Time 35.2 SECONDS (22.3-36.8); Prothrombin Time 36.5 Seconds (11.1-14.7)
[2022-11-24 09:01] LABS: Albumin Level 3.6 g/dL (3.5-5.1); Alkaline Phosphatase 94 U/L (38-126); Anion Gap 9 mmol/L (8-16); Bilirubin,Total 1.7 mg/dL (0.2-1.3); Blood Urea Nitrogen 32 mg/dL (9-20); Calcium 7.3 mg/dL (8.4-10.2); Carbon Dioxide 26 mmol/L (22-30); Chloride 89 mmol/L (98-107); Estimated CRCL calculation 22 ml/min; Estimated Glomerular Filt Rate 17; Glucose 175 mg/dL (65-110); Potassium 3.9 mmol/L (3.4-5.0); Sodium 124 mmol/L (137-145)
--- NOTE | 2022-11-24 09:34 | P.PNIM_ITS ---
Progress Note: A&P Assessment and Plan (1) Atrial flutter with rapid ventricular response: Code(s): I48.92 - Unspecified atrial flutter Status: Acute Assessment and Plan: Cardiology consulted and managing. * He was treated with IV Cardizem, but this was stopped around 2300 on 11/22 due to hypotension BP 71/20 and bradycardia HR 54 bpm. * Metoprolol tartrate 25 mg Q8 hours was also initiated by Cardiology, but to be held unless HR sustained >100 bpm. * [id number] 2, HAS-BLED 1. He was treated with Lovenox 1 mg/kg SQ x1 in the ED and started on Eliquis upon admission. * Plan for STEVAN with cardioversion was deferred due to JACLYN, hyperkalemia and acute nausea. (2) Hypertension: Qualifiers: Hypertension type: primary hypertension Qualified Code(s): I10 - Essential (primary) hypertension Code(s): I10 - Essential (primary) hypertension Status: Chronic Assessment and Plan: Low-dose metoprolol continued, all other meds discontinued due to hypotension (3) Hyperlipidemia: Qualifiers: Hyperlipidemia type: mixed hyperlipidemia Qualified Code(s): E78.2 - Mixed hyperlipidemia Code(s): E78.5 - Hyperlipidemia, unspecified Status: Chronic Assessment and Plan: LDL 75, HDL 39, triglycerides 110 * He reports that he is not been on cholesterol medication in >5 years (4) Type 2 diabetes mellitus: Qualifiers: Diabetes mellitus complication status: with hyperglycemia Diabetes mellitus [facility] insulin use: without assisted living associate use Qualified Code(s): E11.65 - Type 2 diabetes mellitus with hyperglycemia Code(s): E11.9 - Type 2 diabetes mellitus without complications Status: Chronic Assessment and Plan: Uncontrolled. He was previously taking metformin but not in the past 5 years. * A1c 10%, glucose 245 to 323. * We discussed basal-bolus insulin therapy and he does not want to start insulin injections. * Will plan to resume metformin if patient's renal function improves by discharge. * Given reduced EF on echocardiogram, he would benefit from initiation of SGLT-2 medication prior to discharge. * Accu-checks AC/HS with hypoglycemia protocol. * Hold Lantus for now, concern for risk of hypoglycemia due to liver failure (5) JACLYN (acute kidney injury): Code(s): N17.9 - Acute kidney failure, unspecified Status: Acute Assessment and Plan: BUN 18, creatinine 1.9, eGFR 36, K 5.9, bicarb 17, and corrected sodium 131. Significantly increased from admission. UOP appears low 150 mL +2 voids since admission and he was given 1L NS bolus. * 2 Repeat BMP 0800 shows creatinine 2.3, K 7.7, bicarb 18, sodium 130. Bicarb drip initiated. * Consult Nephrology and appreciate recommendations. * Urine sodium 23, urine creatinine 262, FENa 0.2% pre-renal. given Echocardiogram findings, judicious fluid resuscitation warranted. * Monitor strict I/O. Patient refused indwelling verdugo catheter. * Bladder scan Q6 hours and straight cath if >300 mL residual. * Check renal US. * CT abd/pelvis w/o contrast without evidence of urinary obstruction. Bladder scan 0 mL per nursing this morning. * Suspect this is secondary to hypoperfusion, gentle hydration and monitor (6) Hyperkalemia: Code(s): E87.5 - Hyperkalemia Status: Acute Assessment and Plan: K5.9, repeat BMP to ensure accuracy and avoid pseudohyperkalemia, although creatinine significantly increased and this may be secondary to JACLYN. * Repeat BMP 0800 worsening K 7.7. EKG with prolonged QTc 542, repeat EKG improved. * Give
--- NOTE | 2022-11-24 09:34 | PM.IMPN ---
Progress Note: A&P Assessment and Plan (1) Atrial flutter with rapid ventricular response: Code(s): I48.92 - Unspecified atrial flutter Status: Acute Assessment and Plan: Cardiology consulted and managing. He was treated with IV Cardizem, but this was stopped around 2300 on 11/22 due to hypotension BP 71/20 and bradycardia HR 54 bpm. Metoprolol tartrate 25 mg Q8 hours was also initiated by Cardiology, but to be held unless HR sustained >100 bpm. [id number] 2, HAS-BLED 1. He was treated with Lovenox 1 mg/kg SQ x1 in the ED and started on Eliquis upon admission. Plan for STEVAN with cardioversion was deferred due to JACLYN, hyperkalemia and acute nausea. (2) Hypertension: Qualifiers: Hypertension type: primary hypertension Qualified Code(s): I10 - Essential (primary) hypertension Code(s): I10 - Essential (primary) hypertension Status: Chronic Assessment and Plan: Low-dose metoprolol continued, all other meds discontinued due to hypotension (3) Hyperlipidemia: Qualifiers: Hyperlipidemia type: mixed hyperlipidemia Qualified Code(s): E78.2 - Mixed hyperlipidemia Code(s): E78.5 - Hyperlipidemia, unspecified Status: Chronic Assessment and Plan: LDL 75, HDL 39, triglycerides 110 He reports that he is not been on cholesterol medication in >5 years (4) Type 2 diabetes mellitus: Qualifiers: Diabetes mellitus complication status: with hyperglycemia Diabetes mellitus lobsterman insulin use: without longterm use Qualified Code(s): E11.65 - Type 2 diabetes mellitus with hyperglycemia Code(s): E11.9 - Type 2 diabetes mellitus without complications Status: Chronic Assessment and Plan: Uncontrolled. He was previously taking metformin but not in the past 5 years. A1c 10%, glucose 245 to 323. We discussed basal-bolus insulin therapy and he does not want to start insulin injections. Will plan to resume metformin if patient's renal function improves by discharge. Given reduced EF on echocardiogram, he would benefit from initiation of SGLT-2 medication prior to discharge. Accu-checks AC/HS with hypoglycemia protocol. Hold Lantus for now, concern for risk of hypoglycemia due to liver failure (5) JACLYN (acute kidney injury): Code(s): N17.9 - Acute kidney failure, unspecified Status: Acute Assessment and Plan: BUN 18, creatinine 1.9, eGFR 36, K 5.9, bicarb 17, and corrected sodium 131. Significantly increased from admission. UOP appears low 150 mL +2 voids since admission and he was given 1L NS bolus. 11/23 Repeat BMP 0800 shows creatinine 2.3, K 7.7, bicarb 18, sodium 130. Bicarb drip initiated. Consult Nephrology and appreciate recommendations. Urine sodium 23, urine creatinine 262, FENa 0.2% pre-renal. given Echocardiogram findings, judicious fluid resuscitation warranted. Monitor strict I/O. Patient refused indwelling verdugo catheter. Bladder scan Q6 hours and straight cath if >300 mL residual. Check renal US. CT abd/pelvis w/o contrast without evidence of urinary obstruction. Bladder scan 0 mL per nursing this morning. Suspect this is secondary to hypoperfusion, gentle hydration and monitor (6) Hyperkalemia: Code(s): E87.5 - Hyperkalemia Status: Acute Assessment and Plan: K5.9, repeat BMP to ensure accuracy and avoid pseudohyperkalemia, although creatinine significantly increased and this may be secondary to JACLYN. Repeat BMP 0800 worsening K 7.7. EKG with prolonged QTc 542, repeat EKG improved. Given 10 units IV regular insulin x1, 1 amp D50, and started bicarb drip given mild acidosis and JACLYN 1000 repeat K 6.9. Discontinue Lokelma, resolved, monitor (7) Cardiomyopathy: Code(s): I42.9 - Cardiomyopathy, unspecified Status: Acute Assessment and Plan: Transthoracic Echocardiogram shows moderately reduced LV and RV systolic function, EF 35-40%, mod
[2022-11-24] MEDS: SODIUM CHLORIDE 0.9% IV 500 ML IV CONT (09:52)
[2022-11-24] MEDS: APIXABAN 5 MG TABLET PO (09:54)
[2022-11-24] MEDS: SODIUM ZIRCONIUM CYCLOSILICATE 10 GM POWD.PACK PO (09:54)
[2022-11-24] MEDS: SODIUM BICARBONATE 8.4% 150 MEQ in WATER, STERILE FOR INJECTION 950 ML 75 MEQ IV CONT (09:54)
[2022-11-24 10:02] LABS: Aspartate Amino Transferase > 7500 U/L (17-59)
[2022-11-24 10:03] LABS: Alanine Aminotransferase > 3750 U/L (6-50)
[2022-11-24 10:09] LABS: Hepatitis B Surface Antigen Negative (Negative)
[2022-11-24 10:15] LABS: HAV RESULT Negative (Negative); Hepatitis B Core IgM Result Negative (Negative)
[2022-11-24 10:27] LABS: Hepatitis C Virus Antibody Negative (Negative)
--- NOTE | 2022-11-24 11:05 | P.PNNP_ITS ---
Progress Note: A&P Assessment and Plan (1) JACLYN (acute kidney injury): Code(s): N17.9 - Acute kidney failure, unspecified Status: Acute Assessment and Plan: * presumably due to hypotensive episode overnight (down to 80s systolic) * this was likely worsened by associated afib, bradycardia, and underlying cardiomyopathy * evaluation to date: * urine electrolytes prerenal (could just be reflective of diminished EF) * urine eosinophils pending * renal ultrasound without obstruction * CPK mildly e;evated * complicated by severe hyperkalemia (see #2) which is better * follow trend of hemodynamics * follow repeat labs and UOP (2) Hyperkalemia: Code(s): E87.5 - Hyperkalemia Status: Acute Assessment and Plan: * quite severe/profound as noted by recent testing * although related to #1, the severity of this issue seems out of proportion to his JACLYN/ARF * other possible issue?? * CPK only mildly elevated * LDH quite high * haptoglobin pending * LFTs elevated * agree with bicarb gtt as well as lokelma PRN for now * follow serial K+ levels (3) Atrial flutter with rapid ventricular response: Code(s): I48.92 - Unspecified atrial flutter Status: Acute Assessment and Plan: * Cardiology following * cardioversion on hold given #1 and #2 (4) Cardiomyopathy: Code(s): I42.9 - Cardiomyopathy, unspecified Status: Acute Assessment and Plan: * as noted by Echo * Cardiology following (5) Elevated LFTs: Code(s): R79.89 - Other specified abnormal findings of blood chemistry Status: Acute Assessment and Plan: * presumably due to shock liver from hypotension * INR elevated as well * follow trend of repeat labs (6) Hypotension: Code(s): I95.9 - Hypotension, unspecified Status: Acute Assessment and Plan: * beter at this time * off BP medications * follow hemodynamics (7) Diabetes mellitus: Qualifiers: Diabetes mellitus type: type 2 Diabetes mellitus [facility] insulin use: without [facility] use Diabetes mellitus complication status: with other specified complication Qualified Code(s): E11.69 - Type 2 diabetes mellitus with other specified complication Code(s): E11.9 - Type 2 diabetes mellitus without complications Status: Chronic Assessment and Plan: * follow accuchecks * glycemic control per hospitalists Will continue to follow. Subjective Date/time seen: 11/24/22 11:05 The patient seems to be in no acute distress at the time of my visit; his hyperkalemia has resolved resolved with current interventions but his renal function continues to decline; morning labs noted with elevated LFTs, elevated INR, drop in H/H as well as platelets; he is making some urine. Exam Narrative: General: WD/WN male in NAD Heart: IRRR, normal S1 and S2; no rub Lungs: clear to auscultation Abdomen: soft, nontender, nondistended, positive bowel sounds Extremities: no cyanosis or clubbing; no edema Skin: warm and dry Objective Data Vital Signs Vital Signs: Vital Signs Temp Pulse Resp BP Pulse Ox O2 Del Method 11/24/22 08:14 96.7 F L 112 H 20 93/75 L 98 11/24/22 04:00 97.6 F 131 H 20 121/105 H 96 11/24/22 05:21 130 H 11/24/22 04:00 114 H 16 99 Room Air
--- NOTE | 2022-11-24 11:05 | PM.PNNEP ---
Progress Note: A&P Assessment and Plan (1) JACLYN (acute kidney injury): Code(s): N17.9 - Acute kidney failure, unspecified Status: Acute Assessment and Plan: presumably due to hypotensive episode overnight (down to 80s systolic) this was likely worsened by associated afib, bradycardia, and underlying cardiomyopathy evaluation to date: urine electrolytes prerenal (could just be reflective of diminished EF) urine eosinophils pending renal ultrasound without obstruction CPK mildly e;evated complicated by severe hyperkalemia (see #2) which is better follow trend of hemodynamics follow repeat labs and UOP (2) Hyperkalemia: Code(s): E87.5 - Hyperkalemia Status: Acute Assessment and Plan: quite severe/profound as noted by recent testing although related to #1, the severity of this issue seems out of proportion to his JACLYN/ARF other possible issue?? CPK only mildly elevated LDH quite high haptoglobin pending LFTs elevated agree with bicarb gtt as well as lokelma PRN for now follow serial K+ levels (3) Atrial flutter with rapid ventricular response: Code(s): I48.92 - Unspecified atrial flutter Status: Acute Assessment and Plan: Cardiology following cardioversion on hold given #1 and #2 (4) Cardiomyopathy: Code(s): I42.9 - Cardiomyopathy, unspecified Status: Acute Assessment and Plan: as noted by Echo Cardiology following (5) Elevated LFTs: Code(s): R79.89 - Other specified abnormal findings of blood chemistry Status: Acute Assessment and Plan: presumably due to shock liver from hypotension INR elevated as well follow trend of repeat labs (6) Hypotension: Code(s): I95.9 - Hypotension, unspecified Status: Acute Assessment and Plan: beter at this time off BP medications follow hemodynamics (7) Diabetes mellitus: Qualifiers: Diabetes mellitus type: type 2 Diabetes mellitus residential insulin use: without terminal makeup operator use Diabetes mellitus complication status: with other specified complication Qualified Code(s): E11.69 - Type 2 diabetes mellitus with other specified complication Code(s): E11.9 - Type 2 diabetes mellitus without complications Status: Chronic Assessment and Plan: follow accuchecks glycemic control per hospitalists Will continue to follow. Subjective Date/time seen: 11/24/22 11:05 The patient seems to be in no acute distress at the time of my visit; his hyperkalemia has resolved resolved with current interventions but his renal function continues to decline; morning labs noted with elevated LFTs, elevated INR, drop in H/H as well as platelets; he is making some urine. Exam Narrative: General: WD/WN male in NAD Heart: IRRR, normal S1 and S2; no rub Lungs: clear to auscultation Abdomen: soft, nontender, nondistended, positive bowel sounds Extremities: no cyanosis or clubbing; no edema Skin: warm and dry Objective Data Vital Signs Vital Signs: Vital Signs Temp Pulse Resp BP Pulse Ox O2 Del Method 11/24/22 08:14 96.7 F L 112 H 20 93/75 L 98 11/24/22 04:00 97.6 F 131 H 20 121/105 H 96 11/24/22 05:21 130 H 11/24/22 04:00 114 H 16 99 Room Air 11/24/22 04:00 114 H 11/24/22 02:00 94 11/24/22 00:00 94 16 99 Room Air 11/24/22 00:00 94 11/24/22 00:00 97.6 F 85 16 132/103 H 99 11/23/22 22:00 92 11/23/22 20:00 111 H 20 99 Room Air 11/23/22 20:00 111 H 11/23/22 20:00 98.0 F 100 20 106/65 99 11/23/22 20:17 110 H 11/23/22 18:00 87 11/23/22 16:00 68 11/23/22 16:00 100 Room Air 11/23/22 16:06 97.4 F L 88 20 103/68 97 11/23/22 14:35 72 11/23/22 14:00 75 11/23/22 12:00 100 Room Air 11/23/22 12:00 80 11/23/22 11:37 96.4 F L 80 20 115/67 100
[2022-11-24 11:53] LABS: Glucose Point of Care 224 mg/dl (65-105)
[2022-11-24] MEDS: INSULIN ASPART (*BKC) 100 UNITS/ML SUB-Q ×2 (12:48→17:17)
[2022-11-24 14:04] LABS: Anion Gap 8 mmol/L (8-16); Blood Urea Nitrogen 33 mg/dL (9-20); Carbon Dioxide 31 mmol/L (22-30); Chloride 89 mmol/L (98-107); Estimated CRCL calculation 23 ml/min; Estimated Glomerular Filt Rate 18; Glucose 235 mg/dL (65-110); Potassium 3.6 mmol/L (3.4-5.0); Sodium 128 mmol/L (137-145)
[2022-11-24] MEDS: METOPROLOL TARTRATE 12.5 MG TABLET 37.5 MG PO (15:09)
[2022-11-24 15:26] LABS: Appearance Urine Slightly Cloudy (Clear); Bilirubin Urine 1+ (Negative); Blood Urine 2+ (Negative); Color Urine Yellow (Yellow); Glucose Urine UA Negative (Negative); Ketones Urine Trace mg/dL (Negative); Leukocyte Esterase Ur Trace LEU/UL (Negative); Nitrate Urine Negative (Negative); Protein Urine 2+ mg/dL (Negative); pH Urine 5.5 (5.0-9.0)
[2022-11-24 15:37] LABS: Amorphous Sediment Urine Few; Mucus Urine Rare /lpf; Squamous Epithelial Cell Urine Occasional /hpf (Few)
[2022-11-24 15:46] LABS: Add Urine Microscopic? YES
--- NOTE | 2022-11-24 15:47 | WPDGICN ---
Assessment and Plan Assessment and plan (1) Atrial flutter with rapid ventricular response: Code(s): I48.92 - Unspecified atrial flutter Status: Acute (2) Cardiomyopathy: Code(s): I42.9 - Cardiomyopathy, unspecified Status: Acute (3) CHF (congestive heart failure): Code(s): I50.9 - Heart failure, unspecified Status: Acute (4) JACLYN (acute kidney injury): Code(s): N17.9 - Acute kidney failure, unspecified Status: Acute (5) Elevated LFTs: Code(s): R79.89 - Other specified abnormal findings of blood chemistry Status: Acute Assessment and Plan: Elevated LFTs with AST greater than 7500 an ALT greater than 3750, suggesting the patient has had ischemic liver. This is known as shock liver . This appears to correlate with significant decline in blood pressure on Sunday evening. Typically liver function is preserved in gradual resolution of liver function tests are anticipated. It is noted that ultrasound and CT scanning has been performed in the is a question of a small gallbladder polyp this does not appear to correlate with her discomfort and no further workup of the polyp is suggested. Plan to Continue monitor LFTs conservatively at this point. GI Consult Note Consult date/time: 11/24/22 15:47 Reason for consult: Elevated LFTs. HPI: Oscar Dodd is a 62 year old male I am asked to see at the request the hospitalist service because of elevated LFTs. Patient states that he typically monitors his blood pressure and heart rate. He noticed that his heart rate was increasing and for this reason was admitted the hospital by cardiology service because of atrial flutter and a fast heart rate. Patient is awaiting cardioversion. He reports that on Sunday evening he had an abrupt decline in blood pressure. After this is LFTs were drastically elevated. Patient notes rather vague upper abdominal discomfort. He also has been followed for acute kidney injury. Patient denies any bleeding. He has no prior exposure to hepatitis. No recent travel. LFTs prior to this were absolutely normal. Review of Systems Review of Systems: Review of systems noncontributory. [facility] Past Medical History Medical History (Updated 11/24/22 @ 16:03 by Gurpreet Lucas MD) Hyperlipidemia Hypertension Type 2 diabetes mellitus Surgical History Surgical History (Updated 11/22/22 @ 22:23 by Ellen Del Toro PA-C) No significant past surgical history Family History Family History Sibling Asthma Mother Diabetes mellitus Father Hypertension Social History Social History (Updated 11/22/22 @ 22:24 by Ellen Del Toro PA-C) Social History: Surrogate medical decision maker: Jeniffer Dodd, sister. Code status: Full code. Smoking status: Former smoker Tobacco type: cigarettes Alcohol intake: never Substance use: never Lack of Transportation: No Lack of Food: Never True Current Housing: I Have Housing Concerned About Future Housing: No Difficulty Paying Gas/Electric Bills: No Difficulty Paying for Meds: No Currently Unemployed: No Education: Bachelor's Degree Difficulty w/ Childcare or Family Care: No Spiritual care concerns: No Meds Home Medications and Allergies Home Medications Medication Instructions Recorded Confirmed Type Bifidobacterium infantis 4 mg 4 mg PO QPM 11/23/22 11/23/22 History capsule (Align) milk thistle 200 mg capsule 200 mg PO DAILY 11/23/22 11/23/22 History [id number] acid 300 1 tablet PO DAILY 11/23/22 11/23/22 History mcg-lycopene 600 mcg-lutein 300 mcg tablet (Centrum Silver Men) omega-3 fatty acids 1,000 mg PO QPM 11/23/22 11/23/22 History saw palmetto 160 mg capsule 160 mg PO DAILY 11/23/22 11/23/22 History vit C 250 mg-vit E 90 mg-zinc 40 2 tablet PO BID 11/23/22 11/23/22 History mg-copper 1 [id number]
[2022-11-24 16:30] LABS: Glucose Point of Care 221 mg/dl (65-105)
[2022-11-24 18:19] LABS: Eosinophil Urine Rare % (None Seen); Urine Eos QC 2nd Tech Confirmed
[2022-11-24] MEDS: TAMSULOSIN HCL 0.4 MG CAPSULE PO (20:49)
[2022-11-24 20:50] LABS: Glucose Point of Care 213 mg/dl (65-105)
[2022-11-25] VITALS (16 sets, daily range): BP systolic 107–121; BP diastolic 71–99; PULSE 64–130; RESP 16–20; TEMP 36.2–36.8; O2SAT 96–100
[2022-11-25] MEDS: SODIUM BICARBONATE 8.4% 150 MEQ in WATER, STERILE FOR INJECTION 950 ML 75 MEQ IV CONT (00:36)
--- NOTE | 2022-11-25 01:30 | PC.NURSE ---
Odell catheter was present at the beginning of my shift. I obtained an order for the catheter from Dr. Recio at 0126 on 11/25/22 and initiated the charting at that time.
[2022-11-25] MEDS: METOPROLOL TARTRATE 25 MG TABLET PO ×3 (05:44→20:38)
[2022-11-25 07:01] LABS: Hematocrit 38.5 % (42.0-52.0); Hemoglobin 13.2 g/dL (14.0-18.0); Immature Platelet Fraction Pct 6.8 % (0.9-11.2); Mean Corpuscular HGB Conc 34.3 g/dl (32-36); Mean Corpuscular Hemoglobin 32.1 pg (26-34); Mean Corpuscular Volume 93.7 fl (80-100); Mean Platelet Volume 10.7 fl (7.4-10.4); Platelet Count Result 113 k/mm3 (150-375); Red Blood Count 4.11 M/mm3 (4.6-6.20); Red Cell Distribution Width 13.3 % (11.5-14.5); White Blood Count 7.3 K/mm3 (4.5-10.0)
[2022-11-25 07:29] LABS: Albumin Level 3.2 g/dL (3.5-5.1); Alkaline Phosphatase 98 U/L (38-126); Anion Gap 10 mmol/L (8-16); Bilirubin,Total 1.8 mg/dL (0.2-1.3); Blood Urea Nitrogen 27 mg/dL (9-20); Calcium 7.1 mg/dL (8.4-10.2); Carbon Dioxide 30 mmol/L (22-30); Chloride 91 mmol/L (98-107); Estimated CRCL calculation 32 ml/min; Estimated Glomerular Filt Rate 27; Glucose 141 mg/dL (65-110); Magnesium 1.7 mg/dL (1.6-2.3); Phosphorus 3.7 mg/dL (2.5-4.5); Potassium 3.1 mmol/L (3.4-5.0); Sodium 131 mmol/L (137-145)
[2022-11-25 07:50] LABS: Glucose Point of Care 165 mg/dl (65-105)
[2022-11-25 08:15] LABS: Alanine Aminotransferase > 3750 U/L (6-50); Aspartate Amino Transferase 3430 U/L (17-59)
--- NOTE | 2022-11-25 08:45 | P.PNIM_ITS ---
Progress Note: A&P Assessment and Plan (1) Atrial flutter with rapid ventricular response: Code(s): I48.92 - Unspecified atrial flutter Status: Acute Assessment and Plan: Cardiology consulted and managing. * He was treated with IV Cardizem, but this was stopped around 2300 on 11/22 due to hypotension BP 71/20 and bradycardia HR 54 bpm. * Metoprolol tartrate 25 mg Q8 hours was also initiated by Cardiology, but to be held unless HR sustained >100 bpm. * [id number] 2, HAS-BLED 1. He was treated with Lovenox 1 mg/kg SQ x1 in the ED and started on Eliquis upon admission. * Plan for STEVAN with cardioversion was deferred due to JACLYN, hyperkalemia and acute nausea. * Eliquis on hold d/t elevated LFTs and coagulopathy, restart when INR less than 2 * Metoprolol initially increased to 37.5 mg Q8h, decreased back to 25 mg q8h due to concerns for hypotension, will allow permissive tachycardia to compensate for hypoperfusion injury repair and allow BP to normalize a bit more, once LFTs normalize, will go back to suppressing tachycardia further, likely tomorrow we can increase metoprolol again (2) Hypertension: Qualifiers: Hypertension type: primary hypertension Qualified Code(s): I10 - Essential (primary) hypertension Code(s): I10 - Essential (primary) hypertension Status: Chronic Assessment and Plan: Low-dose metoprolol continued, all other meds discontinued due to hypotension (3) Hyperlipidemia: Qualifiers: Hyperlipidemia type: mixed hyperlipidemia Qualified Code(s): E78.2 - Mixed hyperlipidemia Code(s): E78.5 - Hyperlipidemia, unspecified Status: Chronic Assessment and Plan: LDL 75, HDL 39, triglycerides 110 * He reports that he is not been on cholesterol medication in >5 years (4) Type 2 diabetes mellitus: Qualifiers: Diabetes mellitus complication status: with hyperglycemia Diabetes mellitus terminal gauger insulin use: without assisted use Qualified Code(s): E11.65 - Type 2 diabetes mellitus with hyperglycemia Code(s): E11.9 - Type 2 diabetes mellitus without complications Status: Chronic Assessment and Plan: Uncontrolled. He was previously taking metformin but not in the past 5 years. * A1c 10%, glucose 245 to 323. * We discussed basal-bolus insulin therapy and he does not want to start insulin injections. * Will plan to resume metformin if patient's renal function improves by discharge. * Given reduced EF on echocardiogram, he would benefit from initiation of SGLT-2 medication prior to discharge. * Accu-checks AC/HS with hypoglycemia protocol. * Hold Lantus for now, concern for risk of hypoglycemia due to liver failure * FBG 141 today 11/25 (5) JACLYN (acute kidney injury): Code(s): N17.9 - Acute kidney failure, unspecified Status: Acute Assessment and Plan: BUN 18, creatinine 1.9, eGFR 36, K 5.9, bicarb 17, and corrected sodium 131. Significantly increased from admission. UOP appears low 150 mL +2 voids since admission and he was given 1L NS bolus. * 11/23 Repeat BMP 0800 shows creatinine 2.3, K 7.7, bicarb 18, sodium 130. Bicarb drip initiated. * Consult Nephrology and appreciate recommendations. * Urine sodium 23, urine creatinine 262, FENa 0.2% pre-renal. given Echocardiogram findings, judicious fluid resuscitation warranted. * Monitor strict I/O. Patient refused indwelling verdugo catheter. * Bladder scan Q6 hours and straight cath if >300 mL residual. * Check renal US. * CT abd/pelvis w/o contrast without evidence of urinary obstruction. Bladder scan 0 mL per nurs
--- NOTE | 2022-11-25 08:45 | PM.IMPN ---
Progress Note: A&P Assessment and Plan (1) Atrial flutter with rapid ventricular response: Code(s): I48.92 - Unspecified atrial flutter Status: Acute Assessment and Plan: Cardiology consulted and managing. He was treated with IV Cardizem, but this was stopped around 2300 on 11/22 due to hypotension BP 71/20 and bradycardia HR 54 bpm. Metoprolol tartrate 25 mg Q8 hours was also initiated by Cardiology, but to be held unless HR sustained >100 bpm. [id number] 2, HAS-BLED 1. He was treated with Lovenox 1 mg/kg SQ x1 in the ED and started on Eliquis upon admission. Plan for STEVAN with cardioversion was deferred due to JACLYN, hyperkalemia and acute nausea. Eliquis on hold d/t elevated LFTs and coagulopathy, restart when INR less than 2 Metoprolol initially increased to 37.5 mg Q8h, decreased back to 25 mg q8h due to concerns for hypotension, will allow permissive tachycardia to compensate for hypoperfusion injury repair and allow BP to normalize a bit more, once LFTs normalize, will go back to suppressing tachycardia further, likely tomorrow we can increase metoprolol again (2) Hypertension: Qualifiers: Hypertension type: primary hypertension Qualified Code(s): I10 - Essential (primary) hypertension Code(s): I10 - Essential (primary) hypertension Status: Chronic Assessment and Plan: Low-dose metoprolol continued, all other meds discontinued due to hypotension (3) Hyperlipidemia: Qualifiers: Hyperlipidemia type: mixed hyperlipidemia Qualified Code(s): E78.2 - Mixed hyperlipidemia Code(s): E78.5 - Hyperlipidemia, unspecified Status: Chronic Assessment and Plan: LDL 75, HDL 39, triglycerides 110 He reports that he is not been on cholesterol medication in >5 years (4) Type 2 diabetes mellitus: Qualifiers: Diabetes mellitus complication status: with hyperglycemia Diabetes mellitus correction insulin use: without panel wirer use Qualified Code(s): E11.65 - Type 2 diabetes mellitus with hyperglycemia Code(s): E11.9 - Type 2 diabetes mellitus without complications Status: Chronic Assessment and Plan: Uncontrolled. He was previously taking metformin but not in the past 5 years. A1c 10%, glucose 245 to 323. We discussed basal-bolus insulin therapy and he does not want to start insulin injections. Will plan to resume metformin if patient's renal function improves by discharge. Given reduced EF on echocardiogram, he would benefit from initiation of SGLT-2 medication prior to discharge. Accu-checks AC/HS with hypoglycemia protocol. Hold Lantus for now, concern for risk of hypoglycemia due to liver failure FBG 141 today 11/25 (5) JACLYN (acute kidney injury): Code(s): N17.9 - Acute kidney failure, unspecified Status: Acute Assessment and Plan: BUN 18, creatinine 1.9, eGFR 36, K 5.9, bicarb 17, and corrected sodium 131. Significantly increased from admission. UOP appears low 150 mL +2 voids since admission and he was given 1L NS bolus. 11/23 Repeat BMP 0800 shows creatinine 2.3, K 7.7, bicarb 18, sodium 130. Bicarb drip initiated. Consult Nephrology and appreciate recommendations. Urine sodium 23, urine creatinine 262, FENa 0.2% pre-renal. given Echocardiogram findings, judicious fluid resuscitation warranted. Monitor strict I/O. Patient refused indwelling verdugo catheter. Bladder scan Q6 hours and straight cath if >300 mL residual. Check renal US. CT abd/pelvis w/o contrast without evidence of urinary obstruction. Bladder scan 0 mL per nursing this morning. Suspect this is secondary to hypoperfusion, gentle hydration and monitor (6) Hyperkalemia: Code(s): E87.5 - Hyperkalemia Status: Acute Assessment and Plan: K5.9, repeat BMP to ensure accuracy and avoid pseudohyperkalemia, although creatinine significantly increased and this may be secondary to JACLYN. Repeat BMP 0800 worsen
[2022-11-25] MEDS: POTASSIUM CHLORIDE 20 MEQ TABLET 40 MEQ PO ×2 (09:31→15:17)
--- NOTE | 2022-11-25 09:57 | WPDGIPROGNO ---
Progress Note: A&P Assessment and Plan (1) Elevated LFTs: Code(s): R79.89 - Other specified abnormal findings of blood chemistry Status: Acute Assessment and Plan: L elevated LFTs secondary to shock liver period this should resolve on its own. AST 3430 today. ALT greater 3750. This should resolve gradually. Continue to monitor conservatively at this point. No specific therapy indicated. No additional workup at this time necessary (2) Transaminitis: Code(s): R74.01 - Elevation of levels of liver transaminase levels Status: Acute (3) Hypotension: Code(s): I95.9 - Hypotension, unspecified Status: Acute Assessment and Plan: Hypotension resolved. Subjective Date/time seen: 11/25/22 09:57 Interval history: Patient remains comfortable at rest. Epigastric discomfort noted yesterday has resolved. Tolerating diet in general feels better. Review of Systems Review of Systems: Review of systems noncontributory. Exam Narrative: Physical exam reveals patient be alert comfortable at rest. HEENT exam reveals no icterus. Lungs are clear. Heart without murmur. Abdomen is obese. Bowel sounds present soft nontender with no organomegaly. Objective Data Vital Signs Vital Signs: Vital Signs - 24 hr 11/24/22 11:57 11/24/22 10:00 11/24/22 12:00 Temperature 97.2 F L Pulse Rate 129 H 110 H Respiratory Rate 20 Blood Pressure 116/92 H Pulse Oximetry 99 Oxygen Delivery Room Air 11/24/22 12:00 11/24/22 14:25 11/24/22 14:00 Temperature Pulse Rate 129 H 131 H 131 H Respiratory Rate Blood Pressure 115/90 Pulse Oximetry Oxygen Delivery 11/24/22 16:23 11/24/22 16:00 11/24/22 16:00 Temperature 97.0 F L Pulse Rate 109 H 115 H Respiratory Rate 20 Blood Pressure 94/80 L Pulse Oximetry 97 Oxygen Delivery Room Air 11/24/22 18:00 11/24/22 20:00 11/24/22 20:49 Temperature 97.1 F L Pulse Rate 118 H 123 H 135 H Respiratory Rate 18 Blood Pressure 115/82 Pulse Oximetry 98 Oxygen Delivery 11/24/22 23:32 11/24/22 20:00 11/24/22 20:00 Temperature 97.4 F L Pulse Rate 117 H 109 H Respiratory Rate 20 Blood Pressure 109/95 H Pulse Oximetry 96 98 Oxygen Delivery Room Air 11/24/22 22:00 11/25/22 00:00 11/25/22 00:00 Temperature Pulse Rate 119 H 115 H Respiratory Rate Blood Pressure Pulse Oximetry 96 Oxygen Delivery Room Air 11/25/22 02:00 11/25/22 04:00 11/25/22 04:00 Temperature 97.6 F Pulse Rate 109 H 108 H 117 H Respiratory Rate 20 Blood Pressure 121/84 Pulse Oximetry 97 Oxygen Delivery 11/25/22 04:00 11/25/22 05:44 11/25/22 06:00 Temperature Pulse Rate 118 H 109 H Respiratory Rate Blood Pressure Pulse Oximetry 97 Oxygen Delivery Room Air 11/25/22 08:00 Temperature 98.1 F Pulse Rate 111 H Respiratory Rate 16 Blood Pressure 112/71 Pulse Oximetry 97 Oxygen Delivery Intake/Output Intake/Output: Intake & Output 11/22/22 11/23/22 11/24/22 11/25/22 23:59 23:59 23:59 23:59 Intake Total 690 4120 3200 1650 Output Total 150 765 569 5211 Balance 540 3820 2650 -100 Meds/Results Medications: Active Medications Generic Name Dose Route Start Last Admin Trade Name Freq PRN Reason Stop Dose Admin Apixaban 5 mg 11/22/22 21:00 11/24/22 09:54 Apixaban 5 Mg Tablet PO 5 mg Q12HR JUNI Administration Dextrose 12.5 gm 11/22/22 13:51 Dextrose 50% 25 Gm/50 Ml Syringe IV PUSH PRN PRN Hypoglycemia Protocol Glucagon 1 mg 11/22/22 13:51 Glucagon For Inj 1 Mg Vial IM PRN PRN Hypoglycemia Protocol Glucose 15 gm 11/22/22 13:51 Glucose Oral Gel 15 Gm Of Glucse In 37.5 Gm Tube PO PRN PRN Hypoglycemia Protocol Dextrose 1,000 mls @ 100 mls/hr 11/22/22 13:51 Dextrose 5% 1,000 Ml IVPB PRN PRN Hypoglycemia Protocol Sodium Bicarbonate 150 meq
--- NOTE | 2022-11-25 10:22 | P.PNNP_ITS ---
Progress Note: A&P Assessment and Plan (1) JACLYN (acute kidney injury): Code(s): N17.9 - Acute kidney failure, unspecified Status: Acute Assessment and Plan: * Acute kidney injury. * evaluation to date: * urine electrolytes prerenal (could just be reflective of diminished EF) * urine eosinophils rare * renal ultrasound without obstruction * CPK mildly e;evated * Likely due to hypotension but also pre renal factors from cardiomyopathy bradycardia and atrial fibrillation. * Currently getting IV fluids with bicarbonate. * Blood pressure mostly in the 110s and 120s lately. * Creatinine has improved. (2) Hyperkalemia: Code(s): E87.5 - Hyperkalemia Status: Acute Assessment and Plan: * quite severe/profound as noted by recent testing * although related to #1, the severity of this issue seems out of proportion to his JACLYN/ARF * other possible issue?? * CPK only mildly elevated * LDH quite high * haptoglobin pending still * LFTs elevated but improved * Potassium is actually low today. He is getting a supplement this morning. * His bicarbonate level is up to 30. We can stop the IV fluids since he is eating. * Will check another potassium this afternoon. (3) Atrial flutter with rapid ventricular response: Code(s): I48.92 - Unspecified atrial flutter Status: Acute Assessment and Plan: * Cardiology following * Rate is 110 * cardioversion on hold given #1 and #2 (4) Cardiomyopathy: Code(s): I42.9 - Cardiomyopathy, unspecified Status: Acute Assessment and Plan: * as noted by Echo * Cardiology following (5) Elevated LFTs: Code(s): R79.89 - Other specified abnormal findings of blood chemistry Status: Acute Assessment and Plan: * presumably due to shock liver from hypotension * INR elevated as well * Liver enzymes are improved. (6) Hypotension: Code(s): I95.9 - Hypotension, unspecified Status: Acute Assessment and Plan: * Improved (7) Diabetes mellitus: Qualifiers: Diabetes mellitus type: type 2 Diabetes mellitus computer terminal operator insulin use: without custodial use Diabetes mellitus complication status: with other specified complication Qualified Code(s): E11.69 - Type 2 diabetes mellitus with other specified complication Code(s): E11.9 - Type 2 diabetes mellitus without complications Status: Chronic Assessment and Plan: * On Accu-Cheks and sliding-scale insulin. Subjective Date/time seen: 11/25/22 10:22 Interval history: Oscar is feeling better today. He had some nausea and vomiting yesterday. He ate breakfast today and has no nausea. No chest pain or shortness of breath. Exam Narrative: General: WD/WN male in NAD Heart: IRRR, normal S1 and S2; no rub or subcu not Lungs: clear to auscultation Abdomen: soft, nontender, nondistended, positive bowel sounds Extremities: no edema Skin: No rash Objective Data Vital Signs Vital Signs: Vital Signs - 24 hr 11/24/22 11:57 11/24/22 12:00 11/24/22 12:00 Temperature 97.2 F L Pulse Rate 129 H 129 H Respiratory Rate 20 Blood Pressure 116/92 H Pulse Oximetry 99 Oxygen Delivery Room Air 11/24/22 14:25 11/24/22 14:00 11/24/22 16:23 Temperature 97.
--- NOTE | 2022-11-25 10:22 | PM.PNNEP ---
Progress Note: A&P Assessment and Plan (1) JACLYN (acute kidney injury): Code(s): N17.9 - Acute kidney failure, unspecified Status: Acute Assessment and Plan: Acute kidney injury. evaluation to date: urine electrolytes prerenal (could just be reflective of diminished EF) urine eosinophils rare renal ultrasound without obstruction CPK mildly e;evated Likely due to hypotension but also pre renal factors from cardiomyopathy bradycardia and atrial fibrillation. Currently getting IV fluids with bicarbonate. Blood pressure mostly in the 110s and 120s lately. Creatinine has improved. (2) Hyperkalemia: Code(s): E87.5 - Hyperkalemia Status: Acute Assessment and Plan: quite severe/profound as noted by recent testing although related to #1, the severity of this issue seems out of proportion to his JACLYN/ARF other possible issue?? CPK only mildly elevated LDH quite high haptoglobin pending still LFTs elevated but improved Potassium is actually low today. He is getting a supplement this morning. His bicarbonate level is up to 30. We can stop the IV fluids since he is eating. Will check another potassium this afternoon. (3) Atrial flutter with rapid ventricular response: Code(s): I48.92 - Unspecified atrial flutter Status: Acute Assessment and Plan: Cardiology following Rate is 110 cardioversion on hold given #1 and #2 (4) Cardiomyopathy: Code(s): I42.9 - Cardiomyopathy, unspecified Status: Acute Assessment and Plan: as noted by Echo Cardiology following (5) Elevated LFTs: Code(s): R79.89 - Other specified abnormal findings of blood chemistry Status: Acute Assessment and Plan: presumably due to shock liver from hypotension INR elevated as well Liver enzymes are improved. (6) Hypotension: Code(s): I95.9 - Hypotension, unspecified Status: Acute Assessment and Plan: Improved (7) Diabetes mellitus: Qualifiers: Diabetes mellitus type: type 2 Diabetes mellitus computer terminal operator insulin use: without computer terminal operator use Diabetes mellitus complication status: with other specified complication Qualified Code(s): E11.69 - Type 2 diabetes mellitus with other specified complication Code(s): E11.9 - Type 2 diabetes mellitus without complications Status: Chronic Assessment and Plan: On Accu-Cheks and sliding-scale insulin. Subjective Date/time seen: 11/25/22 10:22 Interval history: Oscar is feeling better today. He had some nausea and vomiting yesterday. He ate breakfast today and has no nausea. No chest pain or shortness of breath. Exam Narrative: General: WD/WN male in NAD Heart: IRRR, normal S1 and S2; no rub or subcu not Lungs: clear to auscultation Abdomen: soft, nontender, nondistended, positive bowel sounds Extremities: no edema Skin: No rash Objective Data Vital Signs Vital Signs: Vital Signs - 24 hr 11/24/22 11:57 11/24/22 12:00 11/24/22 12:00 Temperature 97.2 F L Pulse Rate 129 H 129 H Respiratory Rate 20 Blood Pressure 116/92 H Pulse Oximetry 99 Oxygen Delivery Room Air 11/24/22 14:25 11/24/22 14:00 11/24/22 16:23 Temperature 97.0 F L Pulse Rate 131 H 131 H 109 H Respiratory Rate 20 Blood Pressure 115/90 94/80 L Pulse Oximetry 97 Oxygen Delivery 11/24/22 16:00 11/24/22 16:00 11/24/22 18:00 Temperature Pulse Rate 115 H 118 H Respiratory Rate Blood Pressure Pulse Oximetry Oxygen Delivery Room Air 11/24/22 20:00 11/24/22 20:49 11/24/22 23:32 Temperature 97.1 F L 97.4 F L Pulse Rate 123 H 135 H 117 H Respiratory Rate 18 20 Blood Pressure 115/82 109/95 H Pulse Oximetry 98 96 Oxygen Delivery 11/24/22 20:00 11/24/22 20:00 11/24/22 22:00 Temperature Pulse Rate 109 H 119 H Respiratory Rate Blood Pressure Pulse Oximetry 98
[2022-11-25 11:36] LABS: Glucose Point of Care 189 mg/dl (65-105)
[2022-11-25 12:22] LABS: INR 2.4; Prothrombin Time 25.5 Seconds (11.1-14.7)
--- NOTE | 2022-11-25 16:03 | PM.PNCARD ---
Progress Note: A&P Assessment and Plan (1) Atrial flutter with rapid ventricular response: Code(s): I48.92 - Unspecified atrial flutter Status: Acute Assessment and Plan: Patient presents with persistent atrial flutter with rapid ventricular response with suspected duration of nearly 2 months. Initially on diltiazem drip and metoprolol but he developed significant hypotension, therefore diltiazem was discontinued. Currently pursuing rate control strategy with metoprolol. -- Continue metoprolol 25 mg q.8 hours. -- Eliquis currently on hold secondary to significantly elevated liver enzymes and concern for coagulopathy. -- Eventual cardioversion after returns to baseline, unclear if this will be done prior to discharge or at a later date. (2) Hypotension: Code(s): I95.9 - Hypotension, unspecified Status: Acute Assessment and Plan: Improved off diltiazem (3) Cardiomyopathy: Code(s): I42.9 - Cardiomyopathy, unspecified Status: Acute Assessment and Plan: Echocardiogram reveals moderate LV dysfunction EF 35-40% without clear associated wall motion abnormalities. Not in decompensated heart failure at this time. Can initiate medical therapy when his renal function and blood pressure improve. (4) JACLYN (acute kidney injury): Code(s): N17.9 - Acute kidney failure, unspecified Status: Acute Assessment and Plan: Probably related to renal hypoperfusion with LV dysfunction and hypotension. Nephrology consultation appreciated. off IV fluids. -- Daily BNP (5) QT prolongation: Code(s): R94.31 - Abnormal electrocardiogram [ECG] [EKG] Status: Acute Assessment and Plan: Avoid QT prolonging drugs. QT interval has improved on repeat ECG. Will continue to monitor closely. (6) Hypertension: Qualifiers: Hypertension type: primary hypertension Qualified Code(s): I10 - Essential (primary) hypertension Code(s): I10 - Essential (primary) hypertension Status: Chronic Assessment and Plan: Currently at goal, some hypotension earlier in hospitalization. Plan Patient is starting a new job on SundayDecember 04 and will be out of town primarily in [facility] during week days which may complicate follow-up care. Advised the patient he will need close follow-up due to his health problems to prevent relapse. He will be back in town on SundayDecember 15 For morning dental appointment; will try to arrange for office follow-up on that date. Subjective Date/time seen: Cardiology follow up for new onset atrial flutter, new cardiomyopathy, JACLYN, low BP, elevated LFTs secondary to shock liver. 11/24/2022 Uneventful night.? Feels well this morning.? Denies any palpitations, shortness of breath, or chest pain.? Remains in atrial flutter with rate generally around 110-120. Date of Service 11/25/22 16:03: I feel great. Can dangle on the side of the bed with no problems, on denies shortness of breath. on room air. Blood pressure 95-120 mmHg.I's and O's: 3200/550 ml. Telemetry: Heart rate 100-125, Atrial flutter. Review of Systems Review of Systems: denies shortness of breath, chest pain, palpitations, abdominal pain, bleeding. Worried about being able to attend to his new job. Exam Const: General: cooperative and comfortable; No healthy appearing or confusion Orientation/consciousness: oriented to person, patient oriented x3 and No confusion HENMT: Mouth: Yes moist mucous membranes Eyes: EOM: EOMs intact bilaterally Neck: Neck: supple Resp: Effort & Inspection: normal respiratory effort Auscultation: clear to auscultation bilaterally Other: Diminished breath sounds in the bases Cardio: Rate: regular rate Rhythm: regular rhythm and abnormal rhythm irregularly irregular Heart sounds: no murmurs GI: Inspection: normal to inspection GI Palp: No abdominal tenderness Skin: Rashes: rashe
[2022-11-25 16:28] LABS: Glucose Point of Care 229 mg/dl (65-105)
[2022-11-25] MEDS: INSULIN ASPART (*BKC) 100 UNITS/ML SUB-Q (17:10)
[2022-11-25 18:15] LABS: Potassium 3.3 mmol/L (3.4-5.0)
[2022-11-25] MEDS: POTASSIUM CHLORIDE 20 MEQ TABLET PO (18:37)
[2022-11-25] MEDS: TAMSULOSIN HCL 0.4 MG CAPSULE PO (20:37)
[2022-11-25 20:50] LABS: Glucose Point of Care 246 mg/dl (65-105)
[2022-11-26] VITALS (17 sets, daily range): BP systolic 97–133; BP diastolic 76–96; PULSE 55–143; RESP 16–24; TEMP 36.1–36.8; O2SAT 96–98
[2022-11-26 04:50] LABS: Albumin Level 3.2 g/dL (3.5-5.1); Anion Gap 6 mmol/L (8-16); Blood Urea Nitrogen 17 mg/dL (9-20); Calcium 7.6 mg/dL (8.4-10.2); Carbon Dioxide 31 mmol/L (22-30); Chloride 95 mmol/L (98-107); Estimated CRCL calculation 54 ml/min; Estimated Glomerular Filt Rate 51; Glucose 161 mg/dL (65-110); INR 1.7; Phosphorus 3.2 mg/dL (2.5-4.5); Potassium 3.4 mmol/L (3.4-5.0); Prothrombin Time 19.7 Seconds (11.1-14.7); Sodium 132 mmol/L (137-145)
[2022-11-26] MEDS: METOPROLOL TARTRATE 25 MG TABLET PO ×2 (05:55→17:51)
[2022-11-26 08:29] LABS: Glucose Point of Care 186 mg/dl (65-105)
--- NOTE | 2022-11-26 09:17 | WPDGIPROGNO ---
Progress Note: A&P Assessment and Plan (1) Elevated LFTs: Code(s): R79.89 - Other specified abnormal findings of blood chemistry Status: Acute Assessment and Plan: Patient with shock liver . LFTs elevated. Plan to continue monitor these until resolution. Liver function expected remains stable. No additional therapeutic maneuvers necessary. (2) Cardiomyopathy: Code(s): I42.9 - Cardiomyopathy, unspecified Status: Acute (3) Diabetes mellitus: Qualifiers: Diabetes mellitus type: type 2 Diabetes mellitus long-term insulin use: without long-term use Diabetes mellitus complication status: with other specified complication Qualified Code(s): E11.69 - Type 2 diabetes mellitus with other specified complication Code(s): E11.9 - Type 2 diabetes mellitus without complications Status: Chronic (4) Atrial flutter with rapid ventricular response: Code(s): I48.92 - Unspecified atrial flutter Status: Acute Assessment and Plan: Patient on anticoagulation present. Subjective Date/time seen: 11/26/22 09:17 Interval history: Patient alert comfortable this morning. Offers no specific complaints. Denies abdominal pain. Jaundice noted Review of Systems Review of Systems: review of systems noncontributory. Exam Narrative: Physical exam reveals patient be alert. Vital signs stable. Lungs are clear. Heart without murmur. Abdomen is obese. Bowel sounds present soft nontender with no organomegaly. Objective Data Vital Signs Vital Signs: Vital Signs - 24 hr 11/25/22 10:00 11/25/22 12:00 11/25/22 12:00 Temperature 98.0 F Pulse Rate 111 H 64 Respiratory Rate 20 Blood Pressure 107/80 Pulse Oximetry 100 98 Oxygen Delivery Room Air 11/25/22 12:00 11/25/22 14:00 11/25/22 15:18 Temperature Pulse Rate 112 H 124 H 130 H Respiratory Rate Blood Pressure Pulse Oximetry Oxygen Delivery 11/25/22 16:00 11/25/22 16:00 11/25/22 16:00 Temperature 98.0 F Pulse Rate 122 H 117 H Respiratory Rate 20 Blood Pressure 120/82 Pulse Oximetry 98 100 Oxygen Delivery Room Air 11/25/22 18:00 11/25/22 20:00 11/25/22 20:38 Temperature 98.3 F Pulse Rate 110 H 73 120 H Respiratory Rate 18 Blood Pressure 119/92 H Pulse Oximetry 97 Oxygen Delivery 11/25/22 20:00 02/11/23 20:00 11/25/22 23:44 Temperature 97.1 F L Pulse Rate 115 H 115 H 111 H Respiratory Rate 18 20 Blood Pressure 113/99 H Pulse Oximetry 97 96 Oxygen Delivery Room Air 11/25/22 22:00 11/26/22 00:00 11/26/22 00:00 Temperature Pulse Rate 110 H 109 H 111 H Respiratory Rate 20 Blood Pressure Pulse Oximetry 96 Oxygen Delivery Room Air 11/26/22 02:00 11/26/22 04:00 11/26/22 04:00 Temperature Pulse Rate 106 H 116 H Respiratory Rate Blood Pressure Pulse Oximetry 96 Oxygen Delivery Room Air 11/26/22 04:00 11/26/22 05:55 11/26/22 06:00 Temperature 96.9 F L Pulse Rate 119 H 117 H 117 H Respiratory Rate 18 Blood Pressure 116/84 Pulse Oximetry 98 Oxygen Delivery 11/26/22 08:00 Temperature 98.1 F Pulse Rate 55 L Respiratory Rate 16 Blood Pressure 131/91 H Pulse Oximetry 98 Oxygen Delivery Intake/Output Intake/Output: Intake & Output 11/23/22 11/24/22 11/25/22 11/26/22 23:59 23:59 23:59 23:59 Intake Total 4120 3200 2770 550 Output Total 241 837 8112 1000 Balance 3820 2650 570 -450 Meds/Results Medications: Active Medications Generic Name Dose Route Start Last Admin Trade Name Freq PRN Reason Stop Dose Admin Apixaban 5 mg 11/22/22 21:00 11/24/22 09:54 Apixaban 5 Mg Tablet PO 5 mg Q12HR JUNI Administration Dextrose 12.5 gm 11/22/22 13:51 Dextrose 50% 25 Gm/50 Ml Syringe IV PUSH PRN PRN Hypoglycemia Protocol Glucagon 1 mg 11/22/22 13:51 Glucagon For Inj 1 Mg Vial IM PRN PRN Hypoglycemia Protocol
--- NOTE | 2022-11-26 09:48 | PM.IMPN ---
Progress Note: A&P Assessment and Plan (1) Atrial flutter with rapid ventricular response: Code(s): I48.92 - Unspecified atrial flutter Status: Acute Assessment and Plan: Appreciate cardiology consultation, initially treated with Cardizem, then discontinued in favor of metoprolol 25 mg q8h due to hypotension and bradycardia that was severe enough to cause hypoperfusion injury resulting in transaminitis and acute kidney injury, now resolving with IV fluids Metoprolol increased to 37.5 mg Q8h, decreased back to 25 mg q8h due to concerns for hypotension, will allow permissive tachycardia to compensate for hypoperfusion injury repair and allow BP to normalize a bit more, once LFTs normalize, will go back to suppressing tachycardia further Bradycardia noticed again this morning, will hold metoprolol midday dose and reassess [id number] 2, HAS-BLED 1. He was treated with Lovenox 1 mg/kg SQ x1 in the ED and started on Eliquis upon admission. Plan for STEVAN with cardioversion was deferred due to JACLYN, hyperkalemia and acute nausea, will need to be done soon Eliquis on hold d/t elevated LFTs and coagulopathy, restart when INR less than 2 11/26: Eliquis restarted today (2) Hypertension: Qualifiers: Hypertension type: primary hypertension Qualified Code(s): I10 - Essential (primary) hypertension Code(s): I10 - Essential (primary) hypertension Status: Chronic Assessment and Plan: Low-dose metoprolol continued, all other meds discontinued due to hypotension (3) Hyperlipidemia: Qualifiers: Hyperlipidemia type: mixed hyperlipidemia Qualified Code(s): E78.2 - Mixed hyperlipidemia Code(s): E78.5 - Hyperlipidemia, unspecified Status: Chronic Assessment and Plan: LDL 75, HDL 39, triglycerides 110, he is not been on cholesterol medication in >5 years (4) Type 2 diabetes mellitus: Qualifiers: Diabetes mellitus complication status: with hyperglycemia Diabetes mellitus termite control servicer insulin use: without termite control servicer use Qualified Code(s): E11.65 - Type 2 diabetes mellitus with hyperglycemia Code(s): E11.9 - Type 2 diabetes mellitus without complications Status: Chronic Assessment and Plan: Uncontrolled. He was previously taking metformin but not in the past 5 years. A1c 10%, glucose 165-186 Patient does not want to start insulin injections, will plan to resume metformin if patient's renal function improves by discharge. Would initiate SGLT-2 medication prior to discharge. Accu-checks AC/HS with hypoglycemia protocol. Hold Lantus for now, concern for risk of hypoglycemia due to liver failure FBG 186 11/26 (5) JACLYN (acute kidney injury): Code(s): N17.9 - Acute kidney failure, unspecified Status: Acute Assessment and Plan: Improving, appreciate nephrology consultation, bicarb discontinued yesterday Suspect component of dehydration coupled with hypoperfusion, continue to monitor (6) Hyperkalemia: Code(s): E87.5 - Hyperkalemia Status: Acute Assessment and Plan: resolved, cont to monitor (7) Cardiomyopathy: Code(s): I42.9 - Cardiomyopathy, unspecified Status: Acute Assessment and Plan: Transthoracic Echocardiogram shows moderately reduced LV and RV systolic function, EF 35-40%, moderately enlarged LA and RA, mild MR, mild to moderate TR and mild pulmonary hypertension. (8) QT prolongation: Code(s): R94.31 - Abnormal electrocardiogram [ECG] [EKG] Status: Acute Assessment and Plan: As per above. Monitor with hyperkalemia. (9) Transaminitis: Code(s): R74.01 - Elevation of levels of liver transaminase levels Status: Acute Assessment and Plan: Likely secondary to shock liver from hypoperfusion and bradycardia as well as hypotension, discussed case with hepatology at [facility] who agreed to accept patient in transfer yesterday, however, they
--- NOTE | 2022-11-26 11:25 | P.PNNP_ITS ---
Progress Note: A&P Assessment and Plan (1) JACLYN (acute kidney injury): Code(s): N17.9 - Acute kidney failure, unspecified Status: Acute Assessment and Plan: * Acute kidney injury. * evaluation to date: * urine electrolytes prerenal (could just be reflective of diminished EF) * urine eosinophils rare * renal ultrasound without obstruction * CPK mildly e;evated * Likely due to hypotension but also pre renal factors from cardiomyopathy bradycardia and atrial fibrillation. * Currently getting IV fluids with bicarbonate. * Blood pressure mostly in the 110s and 120s lately. * Creatinine has improved. it is now down to 1.4. (2) Hyperkalemia: Code(s): E87.5 - Hyperkalemia Status: Acute Assessment and Plan: * quite severe/profound as noted by recent testing * although related to #1, the severity of this issue seems out of proportion to his JACLYN/ARF * other possible issue?? * CPK only mildly elevated * LDH quite high * haptoglobin pending still * LFTs elevated but improved * Potassium Was low yesterday. he was supplemented and today it is normal. He is off the bicarb drip. (3) Atrial flutter with rapid ventricular response: Code(s): I48.92 - Unspecified atrial flutter Status: Acute Assessment and Plan: * Cardiology following * Rate is 55 * cardioversion on hold given #1 and #2 (4) Cardiomyopathy: Code(s): I42.9 - Cardiomyopathy, unspecified Status: Acute Assessment and Plan: * as noted by Echo * Cardiology following (5) Elevated LFTs: Code(s): R79.89 - Other specified abnormal findings of blood chemistry Status: Acute Assessment and Plan: * presumably due to shock liver from hypotension * INR elevated as well * Liver enzymes Have been improving (6) Hypotension: Code(s): I95.9 - Hypotension, unspecified Status: Acute Assessment and Plan: * Improved (7) Diabetes mellitus: Qualifiers: Diabetes mellitus type: type 2 Diabetes mellitus remote computer terminal operator insulin use: without mcc use Diabetes mellitus complication status: with other specified complication Qualified Code(s): E11.69 - Type 2 diabetes mellitus with other specified complication Code(s): E11.9 - Type 2 diabetes mellitus without complications Status: Chronic Assessment and Plan: * On Accu-Cheks and sliding-scale insulin. Subjective Date/time seen: 11/26/22 11:25 Interval history: Oscar is feeling better today. Ate well yesterday and this morning. No chest pain or shortness of breath. Exam Narrative: General: WD/WN male in NAD Heart: IRRR, normal S1 and S2; no rub or subcu not Lungs: clear to auscultation Abdomen: soft, nontender, nondistended, positive bowel sounds Extremities: no edema or sinus Skin: No rash or subcu nodules Objective Data Vital Signs Vital Signs: Vital Signs - 24 hr 11/25/22 12:00 11/25/22 12:00 11/25/22 12:00 Temperature 98.0 F Pulse Rate 64 112 H Respiratory Rate 20 Blood Pressure 107/80 Pulse Oximetry 100 98 Oxygen Delivery Room Air 11/25/22 14:00 11/25/22 15:18 11/25/22 16:00 Temperature Pulse Rate 124 H 130 H Respiratory Rate Blood Pressure Pulse Oximet
--- NOTE | 2022-11-26 11:25 | PM.PNNEP ---
Progress Note: A&P Assessment and Plan (1) JACLYN (acute kidney injury): Code(s): N17.9 - Acute kidney failure, unspecified Status: Acute Assessment and Plan: Acute kidney injury. evaluation to date: urine electrolytes prerenal (could just be reflective of diminished EF) urine eosinophils rare renal ultrasound without obstruction CPK mildly e;evated Likely due to hypotension but also pre renal factors from cardiomyopathy bradycardia and atrial fibrillation. Currently getting IV fluids with bicarbonate. Blood pressure mostly in the 110s and 120s lately. Creatinine has improved. it is now down to 1.4. (2) Hyperkalemia: Code(s): E87.5 - Hyperkalemia Status: Acute Assessment and Plan: quite severe/profound as noted by recent testing although related to #1, the severity of this issue seems out of proportion to his JACLYN/ARF other possible issue?? CPK only mildly elevated LDH quite high haptoglobin pending still LFTs elevated but improved Potassium Was low yesterday. he was supplemented and today it is normal. He is off the bicarb drip. (3) Atrial flutter with rapid ventricular response: Code(s): I48.92 - Unspecified atrial flutter Status: Acute Assessment and Plan: Cardiology following Rate is 55 cardioversion on hold given #1 and #2 (4) Cardiomyopathy: Code(s): I42.9 - Cardiomyopathy, unspecified Status: Acute Assessment and Plan: as noted by Echo Cardiology following (5) Elevated LFTs: Code(s): R79.89 - Other specified abnormal findings of blood chemistry Status: Acute Assessment and Plan: presumably due to shock liver from hypotension INR elevated as well Liver enzymes Have been improving (6) Hypotension: Code(s): I95.9 - Hypotension, unspecified Status: Acute Assessment and Plan: Improved (7) Diabetes mellitus: Qualifiers: Diabetes mellitus type: type 2 Diabetes mellitus shelter insulin use: without regional intermodal truck driver use Diabetes mellitus complication status: with other specified complication Qualified Code(s): E11.69 - Type 2 diabetes mellitus with other specified complication Code(s): E11.9 - Type 2 diabetes mellitus without complications Status: Chronic Assessment and Plan: On Accu-Cheks and sliding-scale insulin. Subjective Date/time seen: 11/26/22 11:25 Interval history: Oscar is feeling better today. Ate well yesterday and this morning. No chest pain or shortness of breath. Exam Narrative: General: WD/WN male in NAD Heart: IRRR, normal S1 and S2; no rub or subcu not Lungs: clear to auscultation Abdomen: soft, nontender, nondistended, positive bowel sounds Extremities: no edema or sinus Skin: No rash or subcu nodules Objective Data Vital Signs Vital Signs: Vital Signs - 24 hr 11/25/22 12:00 11/25/22 12:00 11/25/22 12:00 Temperature 98.0 F Pulse Rate 64 112 H Respiratory Rate 20 Blood Pressure 107/80 Pulse Oximetry 100 98 Oxygen Delivery Room Air 11/25/22 14:00 11/25/22 15:18 11/25/22 16:00 Temperature Pulse Rate 124 H 130 H Respiratory Rate Blood Pressure Pulse Oximetry 98 Oxygen Delivery Room Air 11/25/22 16:00 11/25/22 16:00 11/25/22 18:00 Temperature 98.0 F Pulse Rate 122 H 117 H 110 H Respiratory Rate 20 Blood Pressure 120/82 Pulse Oximetry 100 Oxygen Delivery 11/25/22 20:00 11/25/22 20:38 11/25/22 20:00 Temperature 98.3 F Pulse Rate 73 120 H 115 H Respiratory Rate 18 Blood Pressure 119/92 H Pulse Oximetry 97 Oxygen Delivery 11/25/22 20:00 11/25/22 23:44 11/25/22 22:00 Temperature 97.1 F L Pulse Rate 115 H 111 H 110 H Respiratory Rate 18 20 Blood Pressure 113/99 H Pulse Oximetry 97 96 Oxygen Delivery Room Air 11/26/22 00:00 11/26/22 00:00 11/26/22 02:00 Temperature Pulse R
[2022-11-26] MEDS: INSULIN ASPART (*BKC) 100 UNITS/ML SUB-Q ×2 (12:00→17:51)
[2022-11-26 12:08] LABS: Glucose Point of Care 257 mg/dl (65-105)
[2022-11-26 12:31] LABS: Albumin Level 3.3 g/dL (3.5-5.1); Alkaline Phosphatase 93 U/L (38-126); Bilirubin,Total 2.1 mg/dL (0.2-1.3)
[2022-11-26 13:53] LABS: Alanine Aminotransferase 3050 U/L (6-50); Aspartate Amino Transferase 942 U/L (17-59)
--- NOTE | 2022-11-26 14:24 | PM.PNCARD ---
Progress Note: A&P Assessment and Plan (1) Atrial flutter with rapid ventricular response: Code(s): I48.92 - Unspecified atrial flutter Status: Acute Assessment and Plan: Patient presents with persistent atrial flutter with rapid ventricular response with suspected duration of nearly 2 months. Initially on diltiazem drip and metoprolol but he developed significant hypotension, therefore diltiazem was discontinued. Currently pursuing rate control strategy with metoprolol. -- Resume metoprolol -- increased to 37.5 mg q.8 hours. -- Cont Eliquis 5 mg BID. -- Will evaluate the patient for possible STEVAN cardioversion or Sunday. (2) Hypotension: Code(s): I95.9 - Hypotension, unspecified Status: Acute Assessment and Plan: Improved off diltiazem (3) Cardiomyopathy: Code(s): I42.9 - Cardiomyopathy, unspecified Status: Acute Assessment and Plan: Echocardiogram reveals moderate LV dysfunction EF 35-40% without clear associated wall motion abnormalities. Not in decompensated heart failure at this time. -- Cont metoprolol and can initiate further medical therapy when his renal function and blood pressure improve. (4) JACLYN (acute kidney injury): Code(s): N17.9 - Acute kidney failure, unspecified Status: Acute Assessment and Plan: Probably related to renal hypoperfusion with LV dysfunction and hypotension. -- Significantly improved. -- Shock liver has improved as well. -- Daily BMP (5) Abnormal EKG: Code(s): R94.31 - Abnormal electrocardiogram [ECG] [EKG] Status: Acute Assessment and Plan: Patient's EKG on 11/23/2022 at 9:08 a.m. showed significant anterolateral T-wave inversion of concern for ischemia, and this T-wave inversion improved by the follow-up EKG at 11:24 a.m.. Troponins were elevated at 0.214 also on 11/24/2022. These EKG changes occurred around his episode of hypotension, however, he may have underlying CAD/ ischemia contributing to his problems. -- Recheck EKG after cardioversion -- Lexiscan stress test on Sunday -- Add statin if abnml stress test and FU for CAD as well. (6) QT prolongation: Code(s): R94.31 - Abnormal electrocardiogram [ECG] [EKG] Status: Acute Assessment and Plan: Avoid QT prolonging drugs. QT interval has improved on repeat ECG. Will continue to monitor closely. (7) Hypertension: Qualifiers: Hypertension type: primary hypertension Qualified Code(s): I10 - Essential (primary) hypertension Code(s): I10 - Essential (primary) hypertension Status: Chronic Assessment and Plan: Currently at goal, some hypotension earlier in hospitalization. Plan Patient is starting a new job on SundayDecember 04 and will be out of town primarily in [facility] during week days which may complicate follow-up care. Advised the patient he will need close follow-up due to his health problems to prevent relapse. He will be back in town on SundayDecember 15 For morning dental appointment; will try to arrange for office follow-up on that date. Subjective Date/time seen: Cardiology follow up for new onset atrial flutter,? new cardiomyopathy, JACLYN, low BP, elevated LFTs secondary to shock liver.? 11/24/2022 Uneventful night.? Feels well this morning.? Denies any palpitations, shortness of breath, or chest pain.? Remains in atrial flutter with rate generally around 110-120. Date of Service 11/25/22? 16:03: ? I feel great. ? Can dangle on the side of the bed with no problems, on denies shortness of breath. on room air.? Blood pressure? 95-120 mmHg.I's and O's:? 3200/550 ml. continue metoprolol 25 mg q.8 hours. Telemetry:? Heart rate 100-125, Atrial flutter. 11/26/22 14:24 Feels well. Pulse was recorded is 55-60 this morning, but telemetry does not show any bradycardia, just tachycardia, so we should not rely on the recorded pulse rate. Metoprolol h
[2022-11-26] MEDS: SENNA/DOCUSATE SODIUM TABLET 1 TAB PO (15:58)
[2022-11-26 16:40] LABS: Glucose Point of Care 251 mg/dl (65-105)
[2022-11-26] MEDS: METOPROLOL TARTRATE 12.5 MG TABLET PO (18:10)
[2022-11-26 20:09] LABS: Glucose Point of Care 203 mg/dl (65-105)
[2022-11-26] MEDS: TAMSULOSIN HCL 0.4 MG CAPSULE PO (20:48)
[2022-11-26] MEDS: APIXABAN 5 MG TABLET PO (20:48)
[2022-11-27] VITALS (54 sets, daily range): BP systolic 66–130; BP diastolic 42–96; PULSE 67–144; RESP 12–25; TEMP 35.9–36.9; O2SAT 92–100
--- NOTE | 2022-11-27 | ECHO_ITS ---
Patient Info Name: Oscar Dodd Age: 62 years : 1960 Gender: Male Ht: 69 in Wt: 200 lbs BSA: 2.12 m2 HR: 134 bpm BP: 117 / 96 mmHg Heart Rhythm: Atrial Flutter Technical Quality: Good Exam Date: 11/27/2022 9:16 AM Exam Location: [facility] Pulmonary Exam Room: [facility] Patient Status: Inpatient Admit Date: 11/23/2022 Staff Ordering Physician: Antonio Clarke MD Hospitality Housekeeper: Brittanie Harley RDCS Attending Provider: Luisa Jha DO Referring Physician: Vince PERALTA; Exam Type: CA echo transesophageal Study Info Indications - PRE CARDIOVERSION Complete two-dimensional, color flow and Doppler transesophageal study is performed. Summary 1. Transesophageal echocardiogram performed prior to DC cardioversion. 2. No atrial thrombus was identified. 3. LV is enlarged with significant systolic dysfunction. 4. Limited examination was performed to rule out atrial thrombus prior to cardioversion. Report Signatures
[2022-11-27 04:12] LABS: Basophils Absolute Auto 0.1 K/mm3 (0.0-0.1); Basophils Percent Auto 0.7 % (0.2-1.2); Eosinophils Absolute Auto 0.2 K/mm3 (0-0.3); Eosinophils Percent Auto 2.6 % (0-4.4); Hematocrit 39.9 % (42.0-52.0); Hemoglobin 13.2 g/dL (14.0-18.0); Immature Granulocyte Absolute 0.04 K/mm3 (0.00-0.031); Immature Granulocyte Percent A 0.4 % (0-0.5); Lymphocytes Absolute Auto 2.16 K/mm3 (0.9-3.2); Lymphocytes Percent Auto 23.7 % (18.3-44.2); Mean Corpuscular HGB Conc 33.1 g/dl (32-36); Mean Corpuscular Hemoglobin 30.8 pg (26-34); Mean Corpuscular Volume 93.2 fl (80-100); Mean Platelet Volume 10.5 fl (7.4-10.4); Monocytes Absolute Auto 0.9 K/mm3 (0.1-0.6); Monocytes Percent Auto 9.9 % (2.6-8.5); Neutrophils Absolute Auto 5.7 K/mm3 (1.3-6.7); Neutrophils Percent Auto 62.7 % (45.5-73.1); Platelet Count Result 144 k/mm3 (150-375); Red Blood Count 4.28 M/mm3 (4.6-6.20); Red Cell Distribution Width 13.2 % (11.5-14.5); White Blood Count 9.1 K/mm3 (4.5-10.0)
[2022-11-27 04:26] LABS: INR 1.8; Prothrombin Time 20.4 Seconds (11.1-14.7)
[2022-11-27 04:36] LABS: Alkaline Phosphatase 80 U/L (38-126); Anion Gap 6 mmol/L (8-16); Aspartate Amino Transferase 278 U/L (17-59); Bilirubin,Total 2.5 mg/dL (0.2-1.3); Blood Urea Nitrogen 14 mg/dL (9-20); Calcium 7.6 mg/dL (8.4-10.2); Carbon Dioxide 31 mmol/L (22-30); Chloride 96 mmol/L (98-107); Estimated CRCL calculation 70 ml/min; Estimated Glomerular Filt Rate > 60; Glucose 160 mg/dL (65-110); Magnesium 1.5 mg/dL (1.6-2.3); Phosphorus 3.9 mg/dL (2.5-4.5); Potassium 3.2 mmol/L (3.4-5.0); Sodium 133 mmol/L (137-145)
[2022-11-27 05:43] LABS: Alanine Aminotransferase 1853 U/L (6-50)
[2022-11-27] MEDS: METOPROLOL TARTRATE 12.5 MG TABLET PO ×2 (05:53→20:12)
[2022-11-27] MEDS: METOPROLOL TARTRATE 25 MG TABLET PO ×2 (05:53→20:12)
--- NOTE | 2022-11-27 08:06 | PM.IMPN ---
Progress Note: A&P Assessment and Plan (1) Atrial flutter with rapid ventricular response: Code(s): I48.92 - Unspecified atrial flutter Status: Acute Assessment and Plan: Appreciate cardiology consultation, initially treated with Cardizem, then discontinued in favor of metoprolol 25 mg q8h due to hypotension and bradycardia that was severe enough to cause hypoperfusion injury resulting in transaminitis and acute kidney injury, now resolving with IV fluids Metoprolol increased to 37.5 mg Q8h, decreased back to 25 mg q8h due to concerns for hypotension, will allow permissive tachycardia to compensate for hypoperfusion injury repair and allow BP to normalize a bit more, once LFTs normalize, will go back to suppressing tachycardia further Bradycardia noticed again this morning, will hold metoprolol midday dose and reassess [id number] 2, HAS-BLED 1. He was treated with Lovenox 1 mg/kg SQ x1 in the ED and started on Eliquis upon admission. Plan for STEVAN with cardioversion was deferred due to JACLYN, hyperkalemia and acute nausea, will need to be done soon Eliquis on hold d/t elevated LFTs and coagulopathy, restart when INR less than 2 11/26: Eliquis restarted today 11/27: STEVAN with conversion to NSR, dopamine briefly needed for hypotension, appreciate cardiology management (2) Hypertension: Qualifiers: Hypertension type: primary hypertension Qualified Code(s): I10 - Essential (primary) hypertension Code(s): I10 - Essential (primary) hypertension Status: Chronic Assessment and Plan: Cont metoprolol 37.5 mg q8h, all other meds discontinued due to hypotension BP reviewed 11/27, 93-118/78-91, data from STEVAN not accessible at this time, but supposedly briefly hypotensive, corrected with dopamine (3) Hyperlipidemia: Qualifiers: Hyperlipidemia type: mixed hyperlipidemia Qualified Code(s): E78.2 - Mixed hyperlipidemia Code(s): E78.5 - Hyperlipidemia, unspecified Status: Chronic Assessment and Plan: LDL 75, HDL 39, triglycerides 110, he is not been on cholesterol medication in >5 years (4) Type 2 diabetes mellitus: Qualifiers: Diabetes mellitus complication status: with hyperglycemia Diabetes mellitus exterminator insulin use: without correction use Qualified Code(s): E11.65 - Type 2 diabetes mellitus with hyperglycemia Code(s): E11.9 - Type 2 diabetes mellitus without complications Status: Chronic Assessment and Plan: Uncontrolled. He was previously taking metformin but not in the past 5 years. A1c 10%, glucose 165-186 Patient does not want to start insulin injections, will plan to resume metformin if patient's renal function improves by discharge. Would initiate SGLT-2 medication prior to discharge. Accu-checks AC/HS with hypoglycemia protocol. Hold Lantus for now, concern for risk of hypoglycemia due to shock liver, improving, restart when appropriate FBG 152 11/27 (5) JACLYN (acute kidney injury): Code(s): N17.9 - Acute kidney failure, unspecified Status: Acute Assessment and Plan: Resolved, appreciate nephrology consultation, off bicarb Suspect component of dehydration coupled with hypoperfusion, continue to monitor (6) Hyperkalemia: Code(s): E87.5 - Hyperkalemia Status: Acute Assessment and Plan: resolved, cont to monitor (7) Cardiomyopathy: Code(s): I42.9 - Cardiomyopathy, unspecified Status: Acute Assessment and Plan: Transthoracic Echocardiogram shows moderately reduced LV and RV systolic function, EF 35-40%, moderately enlarged LA and RA, mild MR, mild to moderate TR and mild pulmonary hypertension. (8) QT prolongation: Code(s): R94.31 - Abnormal electrocardiogram [ECG] [EKG] Status: Acute Assessment and Plan: As per above. Monitor with hyperkalemia. (9) Transaminitis: Code(s): R74.01 - Elevation of levels
[2022-11-27 08:19] LABS: Glucose Point of Care 152 mg/dl (65-105)
--- NOTE | 2022-11-27 08:25 | P.PNNP_ITS ---
Progress Note: A&P Assessment and Plan (1) JACLYN (acute kidney injury): Code(s): N17.9 - Acute kidney failure, unspecified Status: Acute Assessment and Plan: * resolving * evaluation to date: * urine electrolytes prerenal (could just be reflective of diminished EF) * urine eosinophils rare * renal ultrasound without obstruction * CPK mildly elevated (but not enough to alter renal function) * suspect due to previous hypotension coupled with prerenal factors from cardiomyopathy + bradycardia + afib * ongoing improvement noted * follow trend of labs and UOP (2) Hyperkalemia: Code(s): E87.5 - Hyperkalemia Status: Acute Assessment and Plan: * resolved * quite severe/profound as noted by testing on * although related to #1, the severity of this issue seems out of proportion to his JACLYN/ARF * other possible issue (?) -- nothing apparent as of yet: * CPK only mildly elevated * LDH quite high * haptoglobin pending still * LFTs elevated but improving * now K+ running lowish -- replete as needed * probably from use of bicarb gtt and lokelma (3) Atrial flutter with rapid ventricular response: Code(s): I48.92 - Unspecified atrial flutter Status: Acute Assessment and Plan: * Cardiology following * rate controlled * cardioversion was hold given #1 and #2 - will attempt today (4) Cardiomyopathy: Code(s): I42.9 - Cardiomyopathy, unspecified Status: Acute Assessment and Plan: * as noted by Echo * Cardiology following (5) Elevated LFTs: Code(s): R79.89 - Other specified abnormal findings of blood chemistry Status: Acute Assessment and Plan: * presumably due to shock liver from hypotension * INR elevated as well * Liver enzymes have been improving (6) Hypotension: Code(s): I95.9 - Hypotension, unspecified Status: Acute Assessment and Plan: * doing better at this time * follow trend of hemodynamics (7) Diabetes mellitus: Qualifiers: Diabetes mellitus complication status: with other specified complication Diabetes mellitus fci insulin use: without fci use Diabetes mellitus type: type 2 Qualified Code(s): E11.69 - Type 2 diabetes mellitus with other specified complication Code(s): E11.9 - Type 2 diabetes mellitus without complications Status: Chronic Assessment and Plan: * follow accuchecks * glycemic control per hospitalists Will continue to follow. Subjective Date/time seen: 11/27/22 08:25 Chart reviewed since last seen -- kidney function/creatinine has improved as noted by AM labs; noted plans for cardioversion today; no apparent issues/complaints at this time; no events overnight or earlier this AM. Exam Narrative: General: WD/WN male in NAD Heart: IRRR, normal S1 and S2 Lungs: clear anteriorly Abdomen: soft, nontender, nondistended, positive bowel sounds Extremities: no cyanosis, clubbing, or edema Skin: warm and dry Objective Data Vital Signs Vital Signs: Vital Signs Temp Pulse Resp BP Pulse Ox O2 Del Method 11/27/22 06:00 140 H 11/27/22 05:53 128 H 11/27/22 05:53 128 H 11/27/22 03:59 97.6 F 139 H 20 121/88 99 11/27/22 03:48 138 H 20 96 Room Air 11/27/22 03:48 138 H
--- NOTE | 2022-11-27 08:25 | PM.PNNEP ---
Progress Note: A&P Assessment and Plan (1) JACLYN (acute kidney injury): Code(s): N17.9 - Acute kidney failure, unspecified Status: Acute Assessment and Plan: resolving evaluation to date: urine electrolytes prerenal (could just be reflective of diminished EF) urine eosinophils rare renal ultrasound without obstruction CPK mildly elevated (but not enough to alter renal function) suspect due to previous hypotension coupled with prerenal factors from cardiomyopathy + bradycardia + afib ongoing improvement noted follow trend of labs and UOP (2) Hyperkalemia: Code(s): E87.5 - Hyperkalemia Status: Acute Assessment and Plan: resolved quite severe/profound as noted by testing on although related to #1, the severity of this issue seems out of proportion to his JACLYN/ARF other possible issue (?) -- nothing apparent as of yet: CPK only mildly elevated LDH quite high haptoglobin pending still LFTs elevated but improving now K+ running lowish -- replete as needed probably from use of bicarb gtt and lokelma (3) Atrial flutter with rapid ventricular response: Code(s): I48.92 - Unspecified atrial flutter Status: Acute Assessment and Plan: Cardiology following rate controlled cardioversion was hold given #1 and #2 - will attempt today (4) Cardiomyopathy: Code(s): I42.9 - Cardiomyopathy, unspecified Status: Acute Assessment and Plan: as noted by Echo Cardiology following (5) Elevated LFTs: Code(s): R79.89 - Other specified abnormal findings of blood chemistry Status: Acute Assessment and Plan: presumably due to shock liver from hypotension INR elevated as well Liver enzymes have been improving (6) Hypotension: Code(s): I95.9 - Hypotension, unspecified Status: Acute Assessment and Plan: doing better at this time follow trend of hemodynamics (7) Diabetes mellitus: Qualifiers: Diabetes mellitus complication status: with other specified complication Diabetes mellitus nursing home insulin use: without nursing home use Diabetes mellitus type: type 2 Qualified Code(s): E11.69 - Type 2 diabetes mellitus with other specified complication Code(s): E11.9 - Type 2 diabetes mellitus without complications Status: Chronic Assessment and Plan: follow accuchecks glycemic control per hospitalists Will continue to follow. Subjective Date/time seen: 11/27/22 08:25 Chart reviewed since last seen -- kidney function/creatinine has improved as noted by AM labs; noted plans for cardioversion today; no apparent issues/complaints at this time; no events overnight or earlier this AM. Exam Narrative: General: WD/WN male in NAD Heart: IRRR, normal S1 and S2 Lungs: clear anteriorly Abdomen: soft, nontender, nondistended, positive bowel sounds Extremities: no cyanosis, clubbing, or edema Skin: warm and dry Objective Data Vital Signs Vital Signs: Vital Signs Temp Pulse Resp BP Pulse Ox O2 Del Method 11/27/22 06:00 140 H 11/27/22 05:53 128 H 11/27/22 05:53 128 H 11/27/22 03:59 97.6 F 139 H 20 121/88 99 11/27/22 03:48 138 H 20 96 Room Air 11/27/22 03:48 138 H 11/27/22 02:00 118 H 11/26/22 23:53 138 H 20 96 Room Air 11/26/22 23:53 138 H 11/26/22 23:50 98.3 F 114 H 20 106/79 96 11/26/22 22:00 140 H 11/26/22 20:00 140 H 16 96 Room Air 11/26/22 20:00 140 H 11/26/22 20:00 98.1 F 140 H 16 97/76 L 96 11/26/22 16:00 98 Room Air 11/26/22 12:00 98 Room Air 11/26/22 18:00 143 H 11/26/22 16:00 140 H 11/26/22 14:00 138 H 11/26/22 12:00 128 H 11/26/22 10:00 115 H 11/26/22 18:10 142 H 11/26/22 17:51 142 H 11/26/22 16:00 98.2 F 140 H 16 133/96 H 98 11/26/22 12:00 98.0 F 60
[2022-11-27] MEDS: APIXABAN 5 MG TABLET PO ×2 (08:46→20:12)
--- NOTE | 2022-11-27 08:48 | PM.PNCARD ---
Progress Note: A&P Assessment and Plan (1) Atrial flutter with rapid ventricular response: Code(s): I48.92 - Unspecified atrial flutter Status: Acute Plan 62-year-old man with history of atrial flutter for suspected a couple of months or so. Difficult to control heart rate and plan for today is to attempt STEVAN cardioversion. Spoke to the patient in detail about this he understands and is agreeable. Antonio Clarke MD [facility] Subjective Date/time seen: Date of service: 11/27/22 08:48 Interval history: Follow-up visit in this 62-year-old man with: Atrial flutter with RVR difficult to control heart rate and mild to moderate LV systolic dysfunction felt to be rate related phenomenon. Patient is anticipating STEVAN/cardioversion this morning to try to restore sinus rhythm. He feels well this morning and has no other complaints. Continues to be in atrial flutter with 2-1 conduction. Exam Const: General: comfortable and no acute distress Other: Healthy-appearing white male no apparent distress HENMT: Mouth: Yes moist mucous membranes Eyes: Sclera: sclerae normal Pupils: Equal, round and reactive pupils present Neck: Neck: supple and no JVD Other: Normal carotid impulses Resp: Effort & Inspection: normal respiratory effort Auscultation: clear to auscultation bilaterally Cardio: Rate: tachycardic Rhythm: regular rhythm GI: GI Palp: Yes Soft to palpation Auscultation: normal bowel sounds Skin: General skin exam: normal color Neuro: Other: Neurologically intact alert and oriented Extrem: Other: No edema, adequate pulse Objective Data Vital Signs Vital Signs: Vital Signs - 24 hr 11/26/22 12:00 11/26/22 16:00 11/26/22 17:51 Temperature 36.7 C 36.8 C Pulse Rate 60 140 H 142 H Respiratory Rate 24 H 16 Blood Pressure 130/86 133/96 H Pulse Oximetry 98 98 Oxygen Delivery 11/26/22 18:10 11/26/22 10:00 11/26/22 12:00 Temperature Pulse Rate 142 H 115 H 128 H Respiratory Rate Blood Pressure Pulse Oximetry Oxygen Delivery 11/26/22 14:00 11/26/22 16:00 11/26/22 18:00 Temperature Pulse Rate 138 H 140 H 143 H Respiratory Rate Blood Pressure Pulse Oximetry Oxygen Delivery 11/26/22 12:00 11/26/22 16:00 11/26/22 20:00 Temperature 36.7 C Pulse Rate 140 H Respiratory Rate 16 Blood Pressure 97/76 L Pulse Oximetry 98 98 96 Oxygen Delivery Room Air Room Air 11/26/22 20:00 11/26/22 20:00 11/26/22 22:00 Temperature Pulse Rate 140 H 140 H 140 H Respiratory Rate 16 Blood Pressure Pulse Oximetry 96 Oxygen Delivery Room Air 11/26/22 23:50 11/26/22 23:53 11/26/22 23:53 Temperature 36.8 C Pulse Rate 114 H 138 H 138 H Respiratory Rate 20 20 Blood Pressure 106/79 Pulse Oximetry 96 96 Oxygen Delivery Room Air 11/27/22 02:00 11/27/22 03:48 11/27/22 03:48 Temperature Pulse Rate 118 H 138 H 138 H Respiratory Rate 20 Blood Pressure Pulse Oximetry 96 Oxygen Delivery Room Air 11/27/22 03:59 11/27/22 05:53 11/27/22 05:53 Temperature 36.4 C Pulse Rate 139 H 128 H 128 H Respiratory Rate 20 Blood Pressure 121/88 Pulse Oximetry 99 Oxygen Delivery 11/27/22 06:00 11/27/22 08:33 11/27/22 08:00 Temperature 35.9 C L Pulse Rate 140 H 138 H 139 H Respiratory Rate 22 H Blood Pressure 118/91 H Pulse Oximetry 97 Oxygen Delivery Intake/Output Intake/Output: Intake & Output 11/24/22 11/25/22 11/26/22 11/27/22 23:59 23:59 23:59 23:59 Intake Total 3200 2770 1390 550 Output Total 550 2200 3250 Balance 2650 570 -1860 550 Meds/Results Medications: Active Medications Generic Name Dose Route Start Last Admin Trade Name Freq PRN Reason Stop Dose Admin Apixaban 5 mg 11/22/22 21:00 11/27/22 08:46 Apixaban 5 Mg Tablet PO 5 mg Q12HR JUNI Administration Dextrose 12.5 gm 11/22/22 13:51 Dextrose 50% 25 Gm/50 Ml Syringe IV PUSH PRN PRN
--- NOTE | 2022-11-27 09:08 | ECG_ITS ---
Measurements Intervals [place] Rate: 139 P: [place]: 0 QRS: 28 QRSD: 92 T: 209 QT: 358 QTc: 545 Interpretive Statements ATRIAL FLUTTER/TACHYCARDIA WITH RAPID VENTRICULAR RESPONSE 2-1 CONDUCTION LOW QRS VOLTAGE IN EXTREMITY LEADS [QRS DEFLECTION < 0.5 mV IN LIMB LEADS] ST DEVIATION AND MODERATE T-WAVE ABNORMALITY, CONSIDER ANTERIOR ISCHEMIA [-0.1+ mV T WAVE IN V3/V4] COMPARED TO ECG 11/23/2022 11:24:29 HEART RATE RESPONSE TO A FLUTTER HAS INCREASED Electronically Signed On 11-27-2022 12:13:16 [employer] by Antonio Clarke M.D.
--- NOTE | 2022-11-27 09:33 | WPDMODSED ---
Moderate Sedation Note-Pt Data Patient Data Diagnosis: Atrial flutter with rapid ventricular response Present Complaint: No complaints the Procedure to be performed/Plan: Jonnie/cardioversion Allergies Allergy/AdvReac Type Severity Reaction Status Date / Time No Known Allergies Allergy Verified 11/22/22 09:55 Home Medications Medication Instructions Recorded Confirmed Type Bifidobacterium infantis 4 mg 4 mg PO QPM 11/23/22 11/23/22 History capsule (Align) milk thistle 200 mg capsule 200 mg PO DAILY 11/23/22 11/23/22 History yqkrohdj-ttw-lrmpy acid 300 1 tablet PO DAILY 11/23/22 11/23/22 History mcg-lycopene 600 mcg-lutein 300 mcg tablet (Centrum Silver Men) omega-3 fatty acids 1,000 mg PO QPM 11/23/22 11/23/22 History saw palmetto 160 mg capsule 160 mg PO DAILY 11/23/22 11/23/22 History vit C 250 mg-vit E 90 mg-zinc 40 2 tablet PO BID 11/23/22 11/23/22 History mg-copper 1 ij-lhdeor-xnwnev capsule (PreserVision AREDS-2) vitamin B complex 1 tablet PO DAILY 11/23/22 11/23/22 History Current Medications: Active Medications Apixaban (Apixaban 5 Mg Tablet) 5 mg PO Q12HR COUNTS INCLUDE 234 BEDS AT THE [facility] Last Admin: 11/27/22 08:46 Dose: 5 mg Dextrose (Dextrose 50% 25 Gm/50 Ml Syringe) 12.5 gm IV PUSH PRN PRN; Protocol PRN Reason: Hypoglycemia Glucagon (Glucagon For Inj 1 Mg Vial) 1 mg IM PRN PRN; Protocol PRN Reason: Hypoglycemia Glucose (Glucose Oral Gel 15 Gm Of Glucse In 37.5 Gm Tube) 15 gm PO PRN PRN; Protocol PRN Reason: Hypoglycemia Dextrose (Dextrose 5% 1,000 Ml) 1,000 mls @ 100 mls/hr IVPB PRN PRN; Protocol PRN Reason: Hypoglycemia Insulin Aspart (Insulin Aspart (*Bkc) 100 Units/Ml) 2 - 5 units SUB-Q TIDWM COUNTS INCLUDE 234 BEDS AT THE [facility]; Protocol Last Admin: 11/27/22 08:41 Dose: Not Given Metoprolol Tartrate (Metoprolol Tartrate 12.5 Mg Tablet) 12.5 mg PO Q8HR COUNTS INCLUDE 234 BEDS AT THE [facility] Last Admin: 11/27/22 05:53 Dose: 12.5 mg Metoprolol Tartrate (Metoprolol Tartrate 25 Mg Tablet) 25 mg PO Q8HR COUNTS INCLUDE 234 BEDS AT THE [facility] Last Admin: 11/27/22 05:53 Dose: 25 mg Senna/Docusate Sodium (Senna/Docusate Sodium Tablet) 1 tab PO BID COUNTS INCLUDE 234 BEDS AT THE [facility] Last Admin: 11/26/22 15:58 Dose: 1 tab Tamsulosin HCl (Tamsulosin Hcl 0.4 Mg Capsule) 0.4 mg PO HS COUNTS INCLUDE 234 BEDS AT THE [facility] Last Admin: 11/26/22 20:48 Dose: 0.4 mg Sedation/Anesthesia: No previous sedation/anesthesia problems (including family history). [facility] Past Medical History Medical History (Updated 11/26/22 @ 14:48 by Dilcia Tabares MD) Hyperlipidemia Hypertension Type 2 diabetes mellitus Surgical History Surgical History (Updated 11/22/22 @ 22:23 by Ellen Del Toro PA-C) No significant past surgical history Family History Family History Sibling Asthma Mother Diabetes mellitus Father Hypertension Social History Social History (Updated 11/22/22 @ 22:24 by Ellen Del Toro PA-C) Social History: Surrogate medical decision maker: Jeniffer Dodd, sister. Code status: Full code. Smoking status: Former smoker Tobacco type: cigarettes Alcohol intake: never Substance use: never Lack of Transportation: No Lack of Food: Never True Current Housing: I Have Housing Concerned About Future Housing: No Difficulty Paying Gas/Electric Bills: No Difficulty Paying for Meds: No Currently Unemployed: No Education: Bachelor's Degree Difficulty w/ Childcare or Family Care: No Spiritual care concerns: No Mod Sed Physical Exam Physical Exam Pre Procedural Exam: Normal: Neck, Throat, Airway, Lungs, Heart Size, Neuro Exam and Extremities and Variation: Appearance (Overweight gentleman no apparent distress), Heart Rate and Heart Rhythm (Tachycardic) Hours since solid foods: 12 Hours since liquid intake: 12 Mallampati Classification: class II Internal Medicine - PN: Obj Da Vital Signs Vital Signs: Vital Signs - 24 hr 11/26/22 12:00 11/26/22 16:00 11/26/22 17:51 Temperature 36.7 C 36.8 C Pulse Rate 60 140 H 142 H Respiratory Rate
--- NOTE | 2022-11-27 09:35 | SUR.PREOP ---
MD here and aware of electrolytes (low K+ and Mg). No new orders.
--- NOTE | 2022-11-27 09:45 | ECG_ITS ---
Measurements Intervals [place] Rate: 66 P: 31 [place]: 142 QRS: 63 QRSD: 106 T: 209 QT: 467 QTc: 493 Interpretive Statements SINUS RHYTHM LOW QRS VOLTAGE IN EXTREMITY LEADS [QRS DEFLECTION < 0.5 mV IN LIMB LEADS] ST DEVIATION AND MARKED T-WAVE ABNORMALITY, CONSIDER ANTEROLATERAL ISCHEMIA [-0.5+ mV T WAVE IN I/aVL/V3-V6] ABNORMAL ECG COMPARED TO ECG 11/27/2022 09:20:01 SINUS RHYTHM REPLACES ATRIAL FIB AND PRECORDIAL T-WAVE INVERSION IS ACCENTUATED Electronically Signed On 11-27-2022 12:15:05 [employer] by Antonio Clarke M.D.
--- NOTE | 2022-11-27 09:50 | P.PCNCC_ITS ---
Cardiac Cath Procedure Note Date of procedure:: 11/27/22 Performing physician:: Antonio Clarke MD Indication:: Atrial flutter Brief clinical history:: This is a 62-year-old man who has been hospitalized since last week with atrial flutter with RVR. There has been challenging time providing heart rate control. His atrial flutter is felt to be causing LV systolic dysfunction and for this reason JONNIE cardioversion was recommended for today. Procedure Procedure performed:: Jonnie/cardioversion Sedation/Medication given:: IV propofol in aliquots total dosage of 100 mg given Access site:: Right upper extremity Estimated blood loss:: None Procedure note:: Patient was brought to the cath lab radiology technician holding area room 7. Where defibrillator patches were placed in AP position. He then had or pharyngeal benzocaine sprayed and the bite block was placed into position he then received 40 mg of propofol with provided adequate sedation for JONNIE the JONNIE probe was advanced into the oropharynx and into the esophagus the left atrium and its appendage were inspected in entirety there was no evidence of thrombus in the left atrium or the appendage. The JONNIE probe was then withdrawn. Patient was then counter shocked with 200 joules x1 shock restoring sinus rhythm. The anterior defibrillator patch had suboptimal contact with the skin and there was some arching noticed upon administering the counter shocked. Upon removal of the pad there was no significant burning of the skin. He was in sinus rhythm with occasional PVCs following the counter shocked. Findings:: As above Conclusion:: Uncomplicated JONNIE cardioversion following documentation of absence of left atrial thrombus 200 joules was administered x1 shock restoring sinus rhythm. Antonio Clarke MD [facility]
--- NOTE | 2022-11-27 10:16 | SUR.OPER ---
Pt became hypotensive post cardioversion with 200J, sinus rhythm, pt placed in Trendelenburg position and 500ml NS fluid bolus given per Dr. Clarke's orders, pt BP is continuing to increase and pt is alert and oriented and responding appropriately. Will notify Dr. Clarke if VS do not continue to improve. Patti RN at bedside, NAD noted, continue to monitor.
--- NOTE | 2022-11-27 10:47 | SUR.PHASEII ---
Dr. Clarke notified of pt BP trending down, pt remains A&Ox3, denies shortness of breath, lightheadedness, or other complaints. Telephone order to begin dopamine drip. Continue to monitor.
[2022-11-27] MEDS: DOPamine 400 MG/D5W 250 ML 400 MG/250 ML BAG 18.77 MG IV CONT (10:48)
--- NOTE | 2022-11-27 11:13 | WPDCNINT ---
Assessment and Plan Assessment and plan (1) Hypotension: Code(s): I95.9 - Hypotension, unspecified Status: Acute Assessment and Plan: Likely cardiogenic and secondary to beta-jakub. Patient also received 100 mg of propofol for sedation Patient became hypotensive post DC cardioversion He was given 500 mL of fluid bolus and started on dopamine infusion Patient currently is asymptomatic some nausea He is only on 2.5 mics of dopamine. I will give 500 mL of 5% albumin bolus and transition into Ridge-Synephrine if needed since patient is now getting tachycardic dopamine Monitor in ICU If patient remains on vasopressors I will obtain a PICC line for a a better central venous access (2) Transaminitis: Code(s): R74.01 - Elevation of levels of liver transaminase levels Status: Acute Assessment and Plan: Right upper quadrant ultrasound - Mild gallbladder wall thickening, nonspecific. No visible gallstone evident, and there is negative sonographic Sepulveda's sign. Hepatitis panel negative Likely secondary to congestion versus hypoperfusion from cardiomyopathy Levels are improving Monitor (3) Atrial flutter with rapid ventricular response: Code(s): I48.92 - Unspecified atrial flutter Status: Acute Assessment and Plan: Status post DC cardioversion Continue liquids Hold beta-jakub due to hypotension Monitor (4) Cardiomyopathy: Code(s): I42.9 - Cardiomyopathy, unspecified Status: Acute Assessment and Plan: Echo Summary 11/23 ? 1. Complete two-dimensional, color flow and Doppler transthoracicechocardiogram is performed. ? 2. Right ventricular chamber dimension is normal. ? 3. Right ventricular systolic function is moderately reduced. TAPSE 1.3. ? 4. Left ventricular systolic function is moderately reduced, estimated at35-40%. ? 5. Left ventricular chamber dimension is normal. ? 6. There is no increased left ventricular wall thickness. ? 7. The left ventricular diastolic function is indeterminate. ? 8. Left atrial chamber dimension is moderately enlarged. ? 9. Right atrial chamber dimension is moderately enlarged. ? 10. There is mild mitral valve regurgitation. ? 11. There is mild to moderate tricuspid valve regurgitation. ? 12. Mild pulmonary hypertension, estimated pulmonary arterial systolicpressure is 35 mmHg. (5) JACLYN (acute kidney injury): Code(s): N17.9 - Acute kidney failure, unspecified Status: Acute Assessment and Plan: Improving and creatinine is now in normal range Nephrology is following Monitor urine output electrolytes and creatinine Maintain blood pressure (6) Type 2 diabetes mellitus: Qualifiers: Diabetes mellitus complication status: with hyperglycemia Diabetes mellitus fdc insulin use: without joint terminal attack controller use Qualified Code(s): E11.65 - Type 2 diabetes mellitus with hyperglycemia Code(s): E11.9 - Type 2 diabetes mellitus without complications Status: Chronic Assessment and Plan: Continue sliding scale insulin (7) Electrolyte abnormality: Code(s): E87.8 - Other disorders of electrolyte and fluid balance, not elsewhere classified Status: Acute Assessment and Plan: Replace low potassium and magnesium Plan DVT prophylaxis -Eliquis Nutrition -heart healthy diet Code Status - Full Code Total Critical Care Time - 30 minutes Due to a high probability of clinically significant, life threatening deterioration, the patient required my highest level of preparedness to intervene emergently and I personally spent this critical care time directly and personally managing the patient. This critical care time included obtaining a history; examining the patient; pulse oximetry; ordering and review of studies; arranging urgent treatment with development of a management plan; evaluation of patient's response to treatment; frequent reassessment; and discussions with other providers. It was exclus
--- NOTE | 2022-11-27 12:04 | WPDGIPROGNO ---
Progress Note: A&P Assessment and Plan (1) Elevated LFTs: Code(s): R79.89 - Other specified abnormal findings of blood chemistry Status: Acute Assessment and Plan: Elevated LFTs. Most likely secondary to hypotensive event previously. ?shock liver? has been felt to be etiology. LFTs continue to improve. Continue to monitor conservatively at this point. (2) Cardiomyopathy: Code(s): I42.9 - Cardiomyopathy, unspecified Status: Acute (3) Atrial flutter with rapid ventricular response: Code(s): I48.92 - Unspecified atrial flutter Status: Acute (4) Type 2 diabetes mellitus: Qualifiers: Diabetes mellitus chcf insulin use: without computational chemist use Diabetes mellitus complication status: with hyperglycemia Qualified Code(s): E11.65 - Type 2 diabetes mellitus with hyperglycemia Code(s): E11.9 - Type 2 diabetes mellitus without complications Status: Chronic Subjective Date/time seen: 11/27/22 12:04 Interval history: Patient now in the ICU. It became hypotensive after cardioversion today. Also on beta-jakub therapy. No abdominal complaints specifically identified. Review of Systems Review of Systems: Review of systems noncontributory. Exam Narrative: On physical exam patient comfortable at rest. No abdominal complaints. Bowel sounds present soft nontender organomegaly Objective Data Vital Signs Vital Signs: Vital Signs - 24 hr 11/26/22 16:00 11/26/22 17:51 11/26/22 18:10 Temperature 98.2 F Pulse Rate 140 H 142 H 142 H Respiratory Rate 16 Blood Pressure 133/96 H Pulse Oximetry 98 Oxygen Delivery Oxygen Flow Rate 11/26/22 14:00 11/26/22 16:00 11/26/22 18:00 Temperature Pulse Rate 138 H 140 H 143 H Respiratory Rate Blood Pressure Pulse Oximetry Oxygen Delivery Oxygen Flow Rate 11/26/22 16:00 11/26/22 20:00 11/26/22 20:00 Temperature 98.1 F Pulse Rate 140 H 140 H Respiratory Rate 16 Blood Pressure 97/76 L Pulse Oximetry 98 96 Oxygen Delivery Room Air Oxygen Flow Rate 11/26/22 20:00 11/26/22 22:00 11/26/22 23:50 Temperature 98.3 F Pulse Rate 140 H 140 H 114 H Respiratory Rate 16 20 Blood Pressure 106/79 Pulse Oximetry 96 96 Oxygen Delivery Room Air Oxygen Flow Rate 11/26/22 23:53 11/26/22 23:53 11/27/22 02:00 Temperature Pulse Rate 138 H 138 H 118 H Respiratory Rate 20 Blood Pressure Pulse Oximetry 96 Oxygen Delivery Room Air Oxygen Flow Rate 11/27/22 03:48 11/27/22 03:48 11/27/22 03:59 Temperature 97.6 F Pulse Rate 138 H 138 H 139 H Respiratory Rate 20 20 Blood Pressure 121/88 Pulse Oximetry 96 99 Oxygen Delivery Room Air Oxygen Flow Rate 11/27/22 05:53 11/27/22 05:53 11/27/22 06:00 Temperature Pulse Rate 128 H 128 H 140 H Respiratory Rate Blood Pressure Pulse Oximetry Oxygen Delivery Oxygen Flow Rate 11/27/22 08:33 11/27/22 08:00 11/27/22 09:24 Temperature 96.6 F L 97.6 F Pulse Rate 138 H 139 H 140 H Respiratory Rate 22 H 13 Blood Pressure 118/91 H 110/95 H Pulse Oximetry 97 98 Oxygen Delivery Room Air Oxygen Flow Rate 11/27/22 09:40 11/27/22 09:44 11/27/22 09:38 Temperature Pulse Rate 139 H 133 H 140 H Respiratory Rate 25 H 20 21 H Blood Pressure 109/81 92/76 L 117/96 H Pulse Oximetry 98 98 99 Oxygen Delivery Nasal Cannula Nasal Cannula Nasal Cannula Oxygen Flow Rate 2 2 2 11/27/22 09:50 11/27/22 10:00 11/27/22 10:05 Temperature Pulse Rate 69 73 73 Respiratory Rate 14 20 18 Blood Pressure 66/54 L 71/49 L 71/55 L Pulse Oximetry 94 96 96 Oxygen Delivery Nasal Cannula Room Air Room Air Oxygen Flow Rate 2 11/27/22 10:25 11/27/22 10:30 11/27/22 09:43 Temperature Pulse Rate 80 80 144 H Respiratory Rate 18 17 23 H Blood Pressure 81/58 L 76/56 L 93/82 L Pulse Oximetry 96 96 98 Oxygen Delivery Room Air Room Air Nasal Cannula Oxygen Flow Rate
[2022-11-27] MEDS: ONDANSETRON INJ 4 MG/2 ML VIAL IV PUSH ×3 (12:05→23:46)
[2022-11-27] MEDS: ONDANSETRON INJ 4 MG/2 ML VIAL (12:05)
--- NOTE | 2022-11-27 12:36 | PC.NURSE ---
Patient transported to [facility] via stretcher, for cardio version at 09:15. On room air, vital signs stable. No distress noted. Patient A&O X 4.
--- NOTE | 2022-11-27 12:38 | PC.NURSE ---
Patient became Hypotensive after cardioversion, Dopamine drip started, transferred to ICU, report given to Christine MYERS.
--- NOTE | 2022-11-27 12:39 | PC.NURSE ---
This patient, Oscar Dodd, was transferred to [ICU 6 ] on 11/27/22 at 1239. Personal belongings sent with patient. Report given to [Christine MYERS ]. Appropriate documentation sent with patient.
--- NOTE | 2022-11-27 12:46 | SUR.OPER ---
Pt chest was shaved prior to defib pad placement, due to thick hair on chest, during defibrillation a pop and a burning smell was noted possibly due to poor adhesion despite shaving chest prior to placement, O2 was turned off, no sign of fire noted, redness noted to skin on lateral edges of where front defib pad was placed. Dr. Clarke in room and aware of situation during procedure and examined pt and pt skin. Pt converted to sinus rhythm and BP decreased, pt placed in trendelenberg and IV fluid bolus given as indicated in previous note.
[2022-11-27] MEDS: POTASSIUM CHLORIDE 20 MEQ TABLET 40 MEQ PO (12:50)
[2022-11-27] MEDS: MAGNESIUM SULF 2 GM/WATER 50ML 2 GM/50 ML BAG IVPB (12:52)
[2022-11-27] MEDS: ALBUMIN HUMAN 5% 25 GM/500 ML BTL IV CONT ×2 (13:23→22:41)
--- NOTE | 2022-11-27 13:40 | PC.NURSE ---
This patient, Oscar Dodd, was received from [ director labor standards] on 11/27/22 at 1245. Patient/family oriented to unit policies and routines
[2022-11-27] MEDS: EUCERIN CREAM 120 GM JAR 1 APPLIC TOPICAL (14:45)
[2022-11-27 15:53] LABS: Osmolality, Urine 489 mOsm/kg (50-1200)
[2022-11-27 16:34] LABS: Glucose Point of Care 261 mg/dl (65-105)
[2022-11-27] MEDS: POTASSIUM CHLORIDE 20 MEQ TABLET PO (16:35)
[2022-11-27] MEDS: INSULIN ASPART (*BKC) 100 UNITS/ML SUB-Q ×2 (16:35→20:11)
[2022-11-27] MEDS: SENNA/DOCUSATE SODIUM TABLET 1 TAB PO (17:33)
[2022-11-27] MEDS: TAMSULOSIN HCL 0.4 MG CAPSULE PO (20:12)
[2022-11-27 20:38] LABS: Glucose Point of Care 249 mg/dl (65-105)
[2022-11-27] MEDS: PROMETHAZINE HCL 25 MG TABLET PO (22:42)
[2022-11-28] VITALS (20 sets, daily range): BP systolic 89–132; BP diastolic 77–111; PULSE 80–90; RESP 15–24; TEMP 36.7–37.2; O2SAT 96–100
[2022-11-28 04:41] LABS: Basophils Percent Auto 0.2 % (0.2-1.2); Eosinophils Percent Auto 0.1 % (0-4.4); Hematocrit 42.7 % (42.0-52.0); Immature Granulocyte Absolute 0.07 K/mm3 (0.00-0.031); Immature Granulocyte Percent A 0.5 % (0-0.5); Lymphocytes Absolute Auto 1.76 K/mm3 (0.9-3.2); Lymphocytes Percent Auto 12.5 % (18.3-44.2); Mean Corpuscular HGB Conc 32.8 g/dl (32-36); Mean Corpuscular Hemoglobin 31.4 pg (26-34); Mean Corpuscular Volume 95.7 fl (80-100); Monocytes Absolute Auto 1.3 K/mm3 (0.1-0.6); Monocytes Percent Auto 9.5 % (2.6-8.5); Neutrophils Absolute Auto 10.9 K/mm3 (1.3-6.7); Neutrophils Percent Auto 77.2 % (45.5-73.1); Platelet Count Result 143 k/mm3 (150-375); Red Blood Count 4.46 M/mm3 (4.6-6.20); Red Cell Distribution Width 13.6 % (11.5-14.5); White Blood Count 14.1 K/mm3 (4.5-10.0)
[2022-11-28 04:51] LABS: INR 2.5; Prothrombin Time 26.3 Seconds (11.1-14.7)
[2022-11-28 05:04] LABS: Albumin Level 4.1 g/dL (3.5-5.1); Alkaline Phosphatase 82 U/L (38-126); Anion Gap 13 mmol/L (8-16); Aspartate Amino Transferase 260 U/L (17-59); Bilirubin,Total 2.7 mg/dL (0.2-1.3); Blood Urea Nitrogen 20 mg/dL (9-20); Calcium 8.2 mg/dL (8.4-10.2); Carbon Dioxide 21 mmol/L (22-30); Chloride 98 mmol/L (98-107); Estimated CRCL calculation 46 ml/min; Estimated Glomerular Filt Rate 41; Glucose 208 mg/dL (65-110); Magnesium 1.8 mg/dL (1.6-2.3); Phosphorus 4.4 mg/dL (2.5-4.5); Potassium 4.6 mmol/L (3.4-5.0); Sodium 132 mmol/L (137-145)
[2022-11-28 05:14] LABS: Alanine Aminotransferase 1309 U/L (6-50)
[2022-11-28] MEDS: ONDANSETRON INJ 4 MG/2 ML VIAL IV PUSH (05:30)
[2022-11-28] MEDS: INSULIN ASPART (*BKC) 100 UNITS/ML SUB-Q (07:37)
[2022-11-28] MEDS: EUCERIN CREAM 120 GM JAR 1 APPLIC TOPICAL (07:38)
[2022-11-28] MEDS: APIXABAN 5 MG TABLET PO ×2 (07:38→20:05)
[2022-11-28] MEDS: SENNA/DOCUSATE SODIUM TABLET 1 TAB PO ×2 (07:38→18:12)
[2022-11-28 07:39] LABS: Glucose Point of Care 224 mg/dl (65-105)
[2022-11-28] MEDS: MAGNESIUM SULF 2 GM/WATER 50ML 2 GM/50 ML BAG IVPB (08:20)
[2022-11-28 08:41] LABS: Add Urine Microscopic? YES; Appearance Urine Cloudy (Clear); Bilirubin Urine 3+ (Negative); Blood Urine 3+ (Negative); Color Urine Orange (Yellow); Glucose Urine UA Trace mg/dL (Negative); Ketones Urine 1+ mg/dL (Negative); Leukocyte Esterase Ur 1+ LEU/UL (Negative); Nitrate Urine Negative (Negative); Protein Urine 3+ mg/dL (Negative); Specific Grav Ur >= 1.030 (1.001-1.035)
[2022-11-28 08:45] LABS: Bacteria Urine Trace /hpf; Hyaline Casts Urine 50+ /lpf; Mucus Urine Rare /lpf; RBC Urine >75 /hpf (0-2); Squamous Epithelial Cell Urine Occasional /hpf (Few); WBC Clumps Urine Present /HPF; WBC Urine >75 /hpf
[2022-11-28 08:57] LABS: Creatine Kinase 85 U/L (55-170)
[2022-11-28 09:23] LABS: Procalcitonin 0.6 ng/mL
--- NOTE | 2022-11-28 09:37 | WPDINTPN ---
Progress Note: A&P Assessment and Plan (1) Hypotension: Code(s): I95.9 - Hypotension, unspecified Status: Acute Assessment and Plan: Likely cardiogenic and secondary to beta-jakub. Patient also received 100 mg of propofol for sedation Patient became hypotensive post DC cardioversion He was given 500 mL of fluid bolus and started on dopamine infusion. He was asymptomatic except some nausea Dopamine was weaned off after a 500 mL of 5% albumin bolus Overnight he was restarted on Ridge-Synephrine drip after he was given 37.5 mg of metoprolol. I suspect the overnight episode of hypotension was secondary to the beta-jakub. I have decreased the dose to 25 mg q.12 hours Blood pressure is adequate at this time. Patient is afebrile although his WBC has increased today. His urine culture done on 11/24 grew Enterococcus. UA done today suggest UTI Check lactic acid level, procalcitonin level,, urine culture chest x-ray. Start empiric nitrofurantoin Continue monitor (2) Transaminitis: Code(s): R74.01 - Elevation of levels of liver transaminase levels Status: Acute Assessment and Plan: Right upper quadrant ultrasound - Mild gallbladder wall thickening, nonspecific. No visible gallstone evident, and there is negative sonographic Sepulveda's sign. Hepatitis panel negative Likely secondary to congestion versus hypoperfusion from cardiomyopathy Levels are improving Monitor (3) Atrial flutter with rapid ventricular response: Code(s): I48.92 - Unspecified atrial flutter Status: Acute Assessment and Plan: Status post DC cardioversion Continue Eliquis Decreased beta-jakub dose due to hypotension Monitor (4) Cardiomyopathy: Code(s): I42.9 - Cardiomyopathy, unspecified Status: Acute Assessment and Plan: Echo Summary 11/23 ? 1. Complete two-dimensional, color flow and Doppler transthoracicechocardiogram is performed. ? 2. Right ventricular chamber dimension is normal. ? 3. Right ventricular systolic function is moderately reduced. TAPSE 1.3. ? 4. Left ventricular systolic function is moderately reduced, estimated at35-40%. ? 5. Left ventricular chamber dimension is normal. ? 6. There is no increased left ventricular wall thickness. ? 7. The left ventricular diastolic function is indeterminate. ? 8. Left atrial chamber dimension is moderately enlarged. ? 9. Right atrial chamber dimension is moderately enlarged. ? 10. There is mild mitral valve regurgitation. ? 11. There is mild to moderate tricuspid valve regurgitation. ? 12. Mild pulmonary hypertension, estimated pulmonary arterial systolic pressure is 35 mmHg. IV Lasix Cardiology plans for stress test (5) JACLYN (acute kidney injury): Code(s): N17.9 - Acute kidney failure, unspecified Status: Acute Assessment and Plan: Patient presented with JACLYN which improved and creatinine him decreased Creatinine increased 1.7 this morning. Likely secondary to hypotension He did receive albumin bolus and blood pressures improved now and he is currently off of vasopressors CK level is normal Renal ultrasound on 11/23 showed normal kidneys without any hydronephrosis Nephrology is following Monitor urine output electrolytes and creatinine Maintain blood pressure (6) Type 2 diabetes mellitus: Qualifiers: Diabetes mellitus shelter insulin use: without shelter use Diabetes mellitus complication status: with hyperglycemia Qualified Code(s): E11.65 - Type 2 diabetes mellitus with hyperglycemia Code(s): E11.9 - Type 2 diabetes mellitus without complications Status: Chronic Assessment and Plan: Continue sliding scale insulin which I have changed to moderate (7) Electrolyte abnormality: Code(s): E87.8 - Other disorders of electrolyte and fluid balance, not elsewhere classified Status: Acute Assessment and Plan: Replace low magnesium (8) Nausea: Code(s): R11.0 -
--- NOTE | 2022-11-28 09:48 | P.PNNP_ITS ---
Progress Note: A&P Assessment and Plan (1) JACLYN (acute kidney injury): Code(s): N17.9 - Acute kidney failure, unspecified Status: Acute Assessment and Plan: * was resolving * creatinine back up by AM labs today (11/28/22) * possibly related to transient hypotensive episodes yesterday (11/27/22) * drop in urine output noted as wel * evaluation to date: * urine electrolytes prerenal (could just be reflective of diminished EF) * urine eosinophils rare * renal ultrasound without obstruction * CPK mildly elevated (but not enough to alter renal function) * likely due to previous hypotension coupled with prerenal factors from cardiomyopathy + bradycardia + afib * follow trend of repeat labs and UOP (2) Hyperkalemia: Code(s): E87.5 - Hyperkalemia Status: Acute Assessment and Plan: * resolved * quite severe/profound as noted by testing on * although related to #1, the severity of this issue seems out of proportion to his JACLYN/ARF * other possible issue (?) -- nothing apparent as of yet: * CPK only mildly elevated * LDH quite high * haptoglobin pending still * LFTs elevated but improving (3) Atrial flutter with rapid ventricular response: Code(s): I48.92 - Unspecified atrial flutter Status: Acute Assessment and Plan: * Cardiology following * s/p cardioversion (on 11/27/22) * on anticoagulation (4) Cardiomyopathy: Code(s): I42.9 - Cardiomyopathy, unspecified Status: Acute Assessment and Plan: * as noted by Echo * Cardiology following (5) Elevated LFTs: Code(s): R79.89 - Other specified abnormal findings of blood chemistry Status: Acute Assessment and Plan: * presumably due to shock liver from hypotension * INR elevated as well * Liver enzymes have been improving (6) Hypotension: Code(s): I95.9 - Hypotension, unspecified Status: Acute Assessment and Plan: * doing better at this time * follow trend of hemodynamics (7) Diabetes mellitus: Qualifiers: Diabetes mellitus complication status: with other specified complication Diabetes mellitus senior living insulin use: without continuous churn buttermaker use Diabetes osei brooks type: type 2 Qualified Code(s): E11.69 - Type 2 diabetes mellitus with other specified complication Code(s): E11.9 - Type 2 diabetes mellitus without complications Status: Chronic Assessment and Plan: * follow accuchecks * glycemic control per hospitalists Will continue to follow. Subjective Date/time seen: 11/28/22 09:48 Events noted yesterday -- hypotension noted post STEVAN/cardioversion (which was successful) with subsequent transfer to ICU for closer monitoring; he did require vasopressor therapy overnight briefly but was able to weaned off later in the evening; only complaint currently is that of nausea; stable hemodymics noted but rise in creatinine noted with drop in urine output; asking me about discharge. Exam Narrative: General: WD/WN male in NAD Heart: RRR, normal S1 and S2 Lungs: clear anteriorly Abdomen: soft, nontender, nondistended, positive bowel sounds Extremities: no cyanosis, clubbing, or edema Skin: warm and dry Objective Data Vital Signs Vital Signs: Vital Signs Temp Pulse Resp BP Pulse Ox O2 Del Method 11/28/22 06:00 98.1 F 88 18 131
--- NOTE | 2022-11-28 09:48 | PM.PNNEP ---
Progress Note: A&P Assessment and Plan (1) JACLYN (acute kidney injury): Code(s): N17.9 - Acute kidney failure, unspecified Status: Acute Assessment and Plan: was resolving creatinine back up by AM labs today (11/28/22) possibly related to transient hypotensive episodes yesterday (11/27/22) drop in urine output noted as wel evaluation to date: urine electrolytes prerenal (could just be reflective of diminished EF) urine eosinophils rare renal ultrasound without obstruction CPK mildly elevated (but not enough to alter renal function) likely due to previous hypotension coupled with prerenal factors from cardiomyopathy + bradycardia + afib follow trend of repeat labs and UOP (2) Hyperkalemia: Code(s): E87.5 - Hyperkalemia Status: Acute Assessment and Plan: resolved quite severe/profound as noted by testing on although related to #1, the severity of this issue seems out of proportion to his JACLYN/ARF other possible issue (?) -- nothing apparent as of yet: CPK only mildly elevated LDH quite high haptoglobin pending still LFTs elevated but improving (3) Atrial flutter with rapid ventricular response: Code(s): I48.92 - Unspecified atrial flutter Status: Acute Assessment and Plan: Cardiology following s/p cardioversion (on 11/27/22) on anticoagulation (4) Cardiomyopathy: Code(s): I42.9 - Cardiomyopathy, unspecified Status: Acute Assessment and Plan: as noted by Echo Cardiology following (5) Elevated LFTs: Code(s): R79.89 - Other specified abnormal findings of blood chemistry Status: Acute Assessment and Plan: presumably due to shock liver from hypotension INR elevated as well Liver enzymes have been improving (6) Hypotension: Code(s): I95.9 - Hypotension, unspecified Status: Acute Assessment and Plan: doing better at this time follow trend of hemodynamics (7) Diabetes mellitus: Qualifiers: Diabetes mellitus complication status: with other specified complication Diabetes mellitus fci insulin use: without terminal system operator use Diabetes mellitus type: type 2 Qualified Code(s): E11.69 - Type 2 diabetes mellitus with other specified complication Code(s): E11.9 - Type 2 diabetes mellitus without complications Status: Chronic Assessment and Plan: follow accuchecks glycemic control per hospitalists Will continue to follow. Subjective Date/time seen: 11/28/22 09:48 Events noted yesterday -- hypotension noted post STEVAN/cardioversion (which was successful) with subsequent transfer to ICU for closer monitoring; he did require vasopressor therapy overnight briefly but was able to weaned off later in the evening; only complaint currently is that of nausea; stable hemodymics noted but rise in creatinine noted with drop in urine output; asking me about discharge. Exam Narrative: General: WD/WN male in NAD Heart: RRR, normal S1 and S2 Lungs: clear anteriorly Abdomen: soft, nontender, nondistended, positive bowel sounds Extremities: no cyanosis, clubbing, or edema Skin: warm and dry Objective Data Vital Signs Vital Signs: Vital Signs Temp Pulse Resp BP Pulse Ox O2 Del Method 11/28/22 06:00 98.1 F 88 18 131/99 H 98 11/28/22 06:00 89 11/28/22 05:11 88 11/28/22 05:11 89 11/28/22 05:09 87 118/95 H 11/28/22 04:51 87 112/89 11/28/22 04:38 85 112/80 11/28/22 04:00 85 11/28/22 04:00 98.2 F 86 22 H 108/90 100 11/28/22 04:00 85 17 98 Room Air 11/28/22 01:40 80 101/83 11/28/22 03:34 85 124/84 11/28/22 02:00 86 11/28/22 02:00 86 17 102/79 98 11/28/22 00:00 86 11/28/22 00:00 98.2 F 84 17 89/77 L 98 11/28/22 00:00 85 24 H 96 Room Air 11/27/22 23:42 85 95/79 L 11/27/22 22:00 81 11/27
[2022-11-28] MEDS: NITROFURANTOIN MONOHYD MACROCR 100 MG CAP PO (10:29)
[2022-11-28] MEDS: PANTOPRAZOLE 40 MG TABLET PO (10:29)
[2022-11-28] MEDS: FUROSEMIDE INJ 40 MG/4 ML VIAL IV PUSH (10:29)
[2022-11-28 11:43] LABS: Glucose Point of Care 164 mg/dl (65-105)
[2022-11-28 11:44] LABS: Reflex Lactic Acid Yes or No Add Lactic
--- NOTE | 2022-11-28 11:44 | WPDGIPROGNO ---
Progress Note: A&P Assessment and Plan (1) Elevated LFTs: Code(s): R79.89 - Other specified abnormal findings of blood chemistry Status: Acute Assessment and Plan: Elevated LFTs most consistent with shock liver . Related to hypertensive event. Plan to follow conservatively. LFTs improving at this point. (2) Cardiomyopathy: Code(s): I42.9 - Cardiomyopathy, unspecified Status: Acute (3) Atrial flutter with rapid ventricular response: Code(s): I48.92 - Unspecified atrial flutter Status: Acute Assessment and Plan: Patient now in sinus rhythm after cardioversion. (4) Hypotension: Code(s): I95.9 - Hypotension, unspecified Status: Acute Assessment and Plan: Low blood pressure after cardioversion appears to be improving. Followed by [facility] at present. Subjective Date/time seen: 11/28/22 11:44 Interval history: Patient alert this morning. Blood pressure appears under better control. Nursing staff reports emesis last evening. Review of Systems Review of Systems: Review of systems noncontributory. Exam Narrative: Physical exam reveals patient be alert comfortable at rest. Vital signs stable. HEENT exam reveals no icterus. Lungs reveal a few rhonchi. Heart is now regular rate and rhythm. Abdomen bowel sounds present soft nontender no obvious organomegaly. Objective Data Vital Signs Vital Signs: Vital Signs - 24 hr 11/27/22 11:58 11/27/22 11:55 11/27/22 12:00 Temperature Pulse Rate 119 H 115 H Respiratory Rate 13 24 H Blood Pressure 128/89 128/89 118/91 H Pulse Oximetry 93 94 Oxygen Delivery Room Air Room Air 11/27/22 12:05 11/27/22 11:45 11/27/22 12:10 Temperature Pulse Rate 100 109 H 100 Respiratory Rate 14 Blood Pressure 97/80 L 110/86 98/78 L Pulse Oximetry 92 Oxygen Delivery Room Air 11/27/22 13:00 11/27/22 12:30 11/27/22 14:42 Temperature Pulse Rate 92 95 Respiratory Rate 22 H Blood Pressure 93/78 L Pulse Oximetry 98 93 Oxygen Delivery Room Air Room Air 11/27/22 14:43 11/27/22 12:45 11/27/22 12:45 Temperature Pulse Rate 95 95 95 Respiratory Rate 15 Blood Pressure 83/75 L Pulse Oximetry 100 Oxygen Delivery 11/27/22 14:00 11/27/22 14:00 11/27/22 16:00 Temperature Pulse Rate 93 93 Respiratory Rate 19 Blood Pressure 98/79 L Pulse Oximetry 99 100 Oxygen Delivery Room Air 11/27/22 16:00 11/27/22 16:00 11/27/22 18:00 Temperature 98.4 F Pulse Rate 94 94 97 Respiratory Rate 17 Blood Pressure 101/84 Pulse Oximetry 100 Oxygen Delivery 11/27/22 18:00 11/27/22 20:12 11/27/22 20:12 Temperature Pulse Rate 97 98 98 Respiratory Rate 15 Blood Pressure 101/83 Pulse Oximetry 98 Oxygen Delivery 11/27/22 20:00 11/27/22 20:00 11/27/22 20:00 Temperature 98.1 F Pulse Rate 98 98 101 H Respiratory Rate 18 18 Blood Pressure 118/89 Pulse Oximetry 98 98 Oxygen Delivery Room Air 11/27/22 22:03 11/27/22 22:00 11/27/22 22:10 Temperature 98.5 F Pulse Rate 89 84 82 Respiratory Rate 18 24 H Blood Pressure 71/59 L 71/59 L 81/69 L Pulse Oximetry 97 96 Oxygen Delivery 11/27/22 22:21 11/27/22 22:00 11/27/22 23:42 Temperature Pulse Rate 83 81 85 Respiratory Rate Blood Pressure 79/69 L 95/79 L Pulse Oximetry Oxygen Delivery 11/28/22 00:00 11/28/22 00:00 11/28/22 00:00 Temperature 98.2 F Pulse Rate 85 84 86 Respiratory Rate 24 H 17 Blood Pressure 89/77 L Pulse Oximetry 96 98 Oxygen Delivery Room Air 11/28/22 02:00 11/28/22 02:00 11/28/22 03:34 Temperature Pulse Rate 86 86 85 Respiratory Rate 17 Blood Pressure 102/79 124/84 Pulse Oximetry 98 Oxygen Delivery 11/28/22 01:40 11/28/22 04:00 11/28/22 04:00 Temperature 98.2 F Pulse Rate 80 85 86 Respiratory Rate 17 22 H Blood Pressure 101/83 108/90 Pulse Oximetry 98 100 Oxygen [employer]
[2022-11-28 12:54] LABS: Lactic Acid 2.6 mmol/L (0.7-2.0)
[2022-11-28] MEDS: AMPICILLIN 1 GM/NS 50 ML 1 GM/50 ML BAG IVPB ×2 (14:55→18:09)
--- NOTE | 2022-11-28 15:58 | PM.IMPN ---
Progress Note: A&P Assessment and Plan (1) Hypotension: Code(s): I95.9 - Hypotension, unspecified Status: Acute Assessment and Plan: His urine culture done on 11/24 grew Enterococcus. UA done today suggest UTI Check lactic acid level, procalcitonin level, urine culture, chest x-ray. Start ampicillin (2) Transaminitis: Code(s): R74.01 - Elevation of levels of liver transaminase levels Status: Acute Assessment and Plan: Likely secondary to shock liver, resolving (3) Atrial flutter with rapid ventricular response: Code(s): I48.92 - Unspecified atrial flutter Status: Acute Assessment and Plan: Status post DC cardioversion Continue Eliquis Decreased beta-jakub dose due to hypotension Monitor (4) Cardiomyopathy: Code(s): I42.9 - Cardiomyopathy, unspecified Status: Acute Assessment and Plan: IV diuresis with Cardiology recommendations, plan for stress test Echo showed an EF of 35-40% with indeterminate diastolic function, mild pulmonary hypertension, moderately enlarged right left atrium, moderate tricuspid regurgitation, mild mitral regurgitation (5) JACLYN (acute kidney injury): Code(s): N17.9 - Acute kidney failure, unspecified Status: Acute Assessment and Plan: Likely ATN secondary to hypoperfusion episode Renal ultrasound on 11/23 showed normal kidneys without any hydronephrosis Nephrology is following Monitor urine output electrolytes and creatinine Maintain blood pressure (6) Type 2 diabetes mellitus: Qualifiers: Diabetes mellitus retirement insulin use: without intermediate manager use Diabetes mellitus complication status: with hyperglycemia Qualified Code(s): E11.65 - Type 2 diabetes mellitus with hyperglycemia Code(s): E11.9 - Type 2 diabetes mellitus without complications Status: Chronic Assessment and Plan: Accu-Cheks, moderate sliding scale (7) Electrolyte abnormality: Code(s): E87.8 - Other disorders of electrolyte and fluid balance, not elsewhere classified Status: Acute (8) Nausea: Code(s): R11.0 - Nausea Status: Acute Assessment and Plan: PPI and Zofran as needed (9) Lower extremity edema: Code(s): R60.0 - Localized edema Status: Acute Assessment and Plan: Likely secondary to heart failure Compression stocking Lower extremity Doppler IV Lasix (10) Hypertension: Qualifiers: Hypertension type: primary hypertension Qualified Code(s): I10 - Essential (primary) hypertension Code(s): I10 - Essential (primary) hypertension Status: Chronic Assessment and Plan: Cont metoprolol 37.5 mg q8h, all other meds discontinued due to hypotension BP reviewed 11/27, 93-118/78-91, data from STEVAN not accessible at this time, but supposedly briefly hypotensive, corrected with dopamine 11/28: Somewhat resolved on lower dose of metoprolol, continue to monitor, did need pressors overnight (11) Hyperlipidemia: Qualifiers: Hyperlipidemia type: mixed hyperlipidemia Qualified Code(s): E78.2 - Mixed hyperlipidemia Code(s): E78.5 - Hyperlipidemia, unspecified Status: Chronic Assessment and Plan: LDL 75, HDL 39, triglycerides 110, he is not been on cholesterol medication in >5 years (12) Hyperkalemia: Code(s): E87.5 - Hyperkalemia Status: Acute Assessment and Plan: resolved, cont to monitor (13) QT prolongation: Code(s): R94.31 - Abnormal electrocardiogram [ECG] [EKG] Status: Acute Assessment and Plan: As per above. Monitor with hyperkalemia. Plan DVT prophylaxis -Eliquis Nutrition -heart healthy diet Code Status - Full Code Subjective Date/time seen: 11/28/22 15:58 Interval history: Patient is a 62 yo male with type 2 diabetes mellitus, hypertension, and hyperlipidemia, who presented to the ED
--- NOTE | 2022-11-28 17:53 | PM.PNCARD ---
Progress Note: A&P Assessment and Plan (1) Atrial flutter with rapid ventricular response: Code(s): I48.92 - Unspecified atrial flutter Status: Acute Assessment and Plan: Patient presents with persistent atrial flutter with rapid ventricular response with suspected duration of nearly 2 months. status post cardioversion on 11/27/2021 3, maintaining sinus rhythm. -- Cont Eliquis 5 mg BID -- continue metoprolol 25 mg b.i.d.. (2) Hypotension: Code(s): I95.9 - Hypotension, unspecified Status: Acute Assessment and Plan: Improved , now on low-dose vasopressin. Hopefully this can be weaned off by tomorrow. Patient blood pressure is very sensitive to medications, and his renal function is very sensitive to hypotension. (3) Cardiomyopathy: Code(s): I42.9 - Cardiomyopathy, unspecified Status: Acute Assessment and Plan: Echocardiogram reveals moderate LV dysfunction EF 35-40% without clear associated wall motion abnormalities. Chest x-ray shows acute systolic heart failure, looks worse than the prior x-ray. However, would not been able to diurese him due to his hypotension. -- Cont metoprolol and can initiate further medical therapy when his renal function and blood pressure improve. (4) Abnormal EKG: Code(s): R94.31 - Abnormal electrocardiogram [ECG] [EKG] Status: Acute Assessment and Plan: Patient's EKG on 11/23/2022 at 9:08 a.m. showed significant anterolateral T-wave inversion of concern for ischemia, and this T-wave inversion improved by the follow-up EKG at 11:24 a.m.. Troponins were elevated at 0.214 also on 11/24/2022. These EKG changes occurred around his episode of hypotension, however, he may have underlying CAD/ ischemia contributing to his problems. -- Post cardioversion EKG still shows diffuse T-wave inversion from V1 through V6, of concern for underlying CAD. -- Lexiscan stress test; not clear if we will have time to do this prior to discharge. -- Add statin and FU for CAD as well. (5) Acute systolic CHF (congestive heart failure): Code(s): I50.21 - Acute systolic (congestive) heart failure Status: Acute Assessment and Plan: Chest x-ray shows acute systolic heart failure, looks worse than the prior x-ray. However, we have not been able to diurese him due to his hypotension. -- Cont metoprolol and can initiate further medical therapy CAREFULLY when his renal function and blood pressure improve. (6) QT prolongation: Code(s): R94.31 - Abnormal electrocardiogram [ECG] [EKG] Status: Acute Assessment and Plan: Avoid QT prolonging drugs. QT interval has improved on repeat ECG. Will continue to monitor closely. (7) JACLYN (acute kidney injury): Code(s): N17.9 - Acute kidney failure, unspecified Status: Acute Assessment and Plan: Probably related to renal hypoperfusion with LV dysfunction and hypotension. -- A little worse today, probably related to the yesterday's hypotension. -- Shock liver has improved as well. -- Daily BMP (8) Hypertension: Qualifiers: Hypertension type: primary hypertension Qualified Code(s): I10 - Essential (primary) hypertension Code(s): I10 - Essential (primary) hypertension Status: Chronic Assessment and Plan: Currently at goal, some hypotension earlier in hospitalization. Plan Patient is starting a new job on SundayDecember 04 and will be out of town primarily in [place], [place] during week days which may complicate follow-up care. Advised the patient he will need close follow-up due to his health problems to prevent relapse. He will be back in town on SundayDecember 15 For morning dental appointment; will try to arrange for office follow-up on that date. REcommended he find a shipyard painting supervisor in [place] as he needs ongoing cardiac care. Subjective Date/time seen: 11/28/22 17:53 Follow-up for a flu
[2022-11-28 18:19] LABS: Glucose Point of Care 193 mg/dl (65-105)
[2022-11-28] MEDS: METOPROLOL TARTRATE 25 MG TABLET PO (20:06)
[2022-11-28] MEDS: TAMSULOSIN HCL 0.4 MG CAPSULE PO (20:06)
[2022-11-28 20:12] LABS: Glucose Point of Care 188 mg/dl (65-105)
[2022-11-29] VITALS (19 sets, daily range): BP systolic 102–150; BP diastolic 60–111; PULSE 48–125; RESP 14–23; TEMP 36.3–36.7; O2SAT 84–100
[2022-11-29] MEDS: AMPICILLIN 1 GM/NS 50 ML 1 GM/50 ML BAG IVPB ×4 (00:01→17:47)
--- NOTE | 2022-11-29 00:01 | EST_ITS ---
Patient Info Name: Oscar Dodd Age: 62 years : 1960 Gender: Male Ht: 69 in Wt: 222 lbs BSA: 2.25 m2 HR: 87 bpm BP: 141 / 95 mmHg Heart Rhythm: Sinus Rhythm Exam Date: 11/29/2022 8:42 AM Exam Location: [facility] Stress Patient Status: Inpatient Admit Date: 11/23/2022 Staff Ordering Physician: Dilcia Tabares MD Attending Provider: Luisa Jha DO Exercise Technologist: Kaylan Garcia CT Exercise Physician: Teo Cho MD Exam Type: CA stress hollie w NM Study Info Indications I48.92 - A regadenoson stress test was performed. Summary 1. No abnormal ST/T wave changes diagnostic of ischemia with Lexiscan. 2. Occasional PVCs and aberrantly conducted PACs. 3. Please correlate with nuclear medicine images, reported separately. Protocol: Lexiscan Stress ECG Details Stage: REST Duration (min): 0 min : 55 sec HR (bpm): 85 SBP (mmHg): 141 DBP (mmHg): 95 Stage: REST Duration (min): 11 min : 52 sec HR (bpm): 84 SBP (mmHg): 141 DBP (mmHg): 95 Stage: STAGE 1 Duration (min): 1 min : 0 sec HR (bpm): 86 SBP (mmHg): 141 DBP (mmHg): 107 Stage: RECOVERY Duration (min): 1 min : 0 sec HR (bpm): 91 SBP (mmHg): 141 DBP (mmHg): 107 Stage: RECOVERY Duration (min): 2 min : 0 sec HR (bpm): 87 SBP (mmHg): 141 DBP (mmHg): 107 Stage: RECOVERY Duration (min): 3 min : 0 sec HR (bpm): 86 SBP (mmHg): 159 DBP (mmHg): 106 Stage: RECOVERY Duration (min): 3 min : 1 sec HR (bpm): 86 SBP (mmHg): 159 DBP (mmHg): 106 Rest HR: 84 bpm Peak HR: 91 bpm Rest Sys BP: 141 mmHg Peak Sys BP: 159 mmHg Max Pred HR: 156 bpm % Max Pred HR: 58 % Target HR: 133 bpm Max RPP: 14,469 bpm*mmHg Total Time: 1 min : 0 sec Rest Vasquez BP: 95 mmHg Peak Vasquez BP: 106 mmHg Total Dose: 0.4 mg Resting ECG Sinus rhythm with baseline T-wave abnormality. Stress ECG Sinus rhythm. No abnormal ST/T wave changes diagnostic of ischemia with Lexiscan. Arrhythmias Occasional PVCs and aberrantly conducted PACs. Report Signatures
[2022-11-29 04:03] LABS: Basophils Percent Auto 0.4 % (0.2-1.2); Eosinophils Absolute Auto 0.1 K/mm3 (0-0.3); Eosinophils Percent Auto 0.7 % (0-4.4); Hematocrit 39.3 % (42.0-52.0); Hemoglobin 13.1 g/dL (14.0-18.0); Immature Granulocyte Absolute 0.04 K/mm3 (0.00-0.031); Immature Granulocyte Percent A 0.4 % (0-0.5); Lymphocytes Absolute Auto 2.34 K/mm3 (0.9-3.2); Lymphocytes Percent Auto 22.3 % (18.3-44.2); Mean Corpuscular HGB Conc 33.3 g/dl (32-36); Mean Corpuscular Volume 96.1 fl (80-100); Mean Platelet Volume 11.2 fl (7.4-10.4); Monocytes Absolute Auto 1.2 K/mm3 (0.1-0.6); Monocytes Percent Auto 11.7 % (2.6-8.5); Neutrophils Absolute Auto 6.8 K/mm3 (1.3-6.7); Neutrophils Percent Auto 64.5 % (45.5-73.1); Platelet Count Result 149 k/mm3 (150-375); Red Blood Count 4.09 M/mm3 (4.6-6.20); Red Cell Distribution Width 13.8 % (11.5-14.5); White Blood Count 10.5 K/mm3 (4.5-10.0)
[2022-11-29 04:23] LABS: Albumin Level 3.7 g/dL (3.5-5.1); Alkaline Phosphatase 74 U/L (38-126); Anion Gap 11 mmol/L (8-16); Aspartate Amino Transferase 191 U/L (17-59); Bilirubin,Total 2.5 mg/dL (0.2-1.3); Blood Urea Nitrogen 26 mg/dL (9-20); Carbon Dioxide 26 mmol/L (22-30); Chloride 96 mmol/L (98-107); Estimated CRCL calculation 44 ml/min; Estimated Glomerular Filt Rate 38; Glucose 178 mg/dL (65-110); Magnesium 1.8 mg/dL (1.6-2.3); Phosphorus 4.1 mg/dL (2.5-4.5); Potassium 4.5 mmol/L (3.4-5.0); Sodium 133 mmol/L (137-145)
[2022-11-29 05:13] LABS: Alanine Aminotransferase 1092 U/L (6-50)
--- NOTE | 2022-11-29 09:21 | WPDINTPN ---
Progress Note: A&P Assessment and Plan (1) Hypotension: Code(s): I95.9 - Hypotension, unspecified Status: Acute Assessment and Plan: Likely cardiogenic and secondary to beta-jakub. Patient also received 100 mg of propofol for sedation Patient became hypotensive post DC cardioversion He was given 500 mL of fluid bolus and started on dopamine infusion. He was asymptomatic except some nausea Dopamine was weaned off after a 500 mL of 5% albumin bolus Overnight he was restarted on Ridge-Synephrine drip after he was given 37.5 mg of metoprolol. I suspect the overnight episode of hypotension was secondary to the beta-jakub. I have decreased the dose to 25 mg q.12 hours 11/29 Blood pressure remained adequate since yesterday. Patient is afebrile although his WBC has increased today. His urine culture done on 11/24 grew Enterococcus. UA done today suggest UTI Lactic acid level was marginally elevated, procalcitonin level was indeterminate,, urine culture is pending chest x-ray showed pulmonary edema. Patient was started on empiric ampicillin Continue monitor (2) Transaminitis: Code(s): R74.01 - Elevation of levels of liver transaminase levels Status: Acute Assessment and Plan: Right upper quadrant ultrasound - Mild gallbladder wall thickening, nonspecific. No visible gallstone evident, and there is negative sonographic Sepulveda's sign. Hepatitis panel negative Likely secondary to congestion versus hypoperfusion from cardiomyopathy Levels are improving Monitor (3) Atrial flutter with rapid ventricular response: Code(s): I48.92 - Unspecified atrial flutter Status: Acute Assessment and Plan: Status post DC cardioversion Continue Eliquis Beta-jakub dose was decreased due to hypotension Monitor (4) Cardiomyopathy: Code(s): I42.9 - Cardiomyopathy, unspecified Status: Acute Assessment and Plan: Echo Summary 11/23 ? 1. Complete two-dimensional, color flow and Doppler transthoracicechocardiogram is performed. ? 2. Right ventricular chamber dimension is normal. ? 3. Right ventricular systolic function is moderately reduced. TAPSE 1.3. ? 4. Left ventricular systolic function is moderately reduced, estimated at35-40%. ? 5. Left ventricular chamber dimension is normal. ? 6. There is no increased left ventricular wall thickness. ? 7. The left ventricular diastolic function is indeterminate. ? 8. Left atrial chamber dimension is moderately enlarged. ? 9. Right atrial chamber dimension is moderately enlarged. ? 10. There is mild mitral valve regurgitation. ? 11. There is mild to moderate tricuspid valve regurgitation. ? 12. Mild pulmonary hypertension, estimated pulmonary arterial systolic pressure is 35 mmHg. IV Lasix was given yesterday Patient has gone for stress test today (5) JACLYN (acute kidney injury): Code(s): N17.9 - Acute kidney failure, unspecified Status: Acute Assessment and Plan: Patient presented with JACLYN which improved and creatinine decreased Creatinine increased again Likely secondary to hypotension He did receive albumin bolus and blood pressures improved now and he is currently off of vasopressors CK level is normal Creatinine is 1.8 Renal ultrasound on 11/23 showed normal kidneys without any hydronephrosis Nephrology is following Monitor urine output electrolytes and creatinine Maintain blood pressure (6) Type 2 diabetes mellitus: Qualifiers: Diabetes mellitus local intermodal truck driver insulin use: without local intermodal truck driver use Diabetes mellitus complication status: with hyperglycemia Qualified Code(s): E11.65 - Type 2 diabetes mellitus with hyperglycemia Code(s): E11.9 - Type 2 diabetes mellitus without complications Status: Chronic Assessment and Plan: Continue sliding scale insulin which I have changed to moderate (7) Electrolyte abnormality: Code(s): E87.8 - Other disorders of electrolyte and fluid balance, not else
[2022-11-29 10:13] LABS: Glucose Point of Care 199 mg/dl (65-105)
[2022-11-29 10:17] LABS: Haptoglobin 139 mg/dL (43-212)
[2022-11-29] MEDS: MAGNESIUM OXIDE 400 MG TABLET PO (10:20)
[2022-11-29] MEDS: METOPROLOL TARTRATE 25 MG TABLET PO (10:20)
[2022-11-29] MEDS: PANTOPRAZOLE 40 MG TABLET PO (10:22)
[2022-11-29] MEDS: APIXABAN 5 MG TABLET PO ×2 (10:22→21:20)
--- NOTE | 2022-11-29 10:47 | PM.PNCARD ---
Progress Note: A&P Assessment and Plan (1) Atrial flutter with rapid ventricular response: Code(s): I48.92 - Unspecified atrial flutter Status: Acute Assessment and Plan: Patient presents with persistent atrial flutter with rapid ventricular response with suspected duration of nearly 2 months. status post cardioversion on 11/27/2022, maintaining sinus rhythm. -- Cont Eliquis 5 mg BID -- continue metoprolol 25 mg b.i.d.. (2) Hypotension: Code(s): I95.9 - Hypotension, unspecified Status: Acute Assessment and Plan: Improved , now off vasopressin. Patient's blood pressure is very sensitive to medications, and his renal function is very sensitive to hypotension. (3) Cardiomyopathy: Code(s): I42.9 - Cardiomyopathy, unspecified Status: Acute Assessment and Plan: Echocardiogram reveals moderate LV dysfunction EF 35-40% without clear associated wall motion abnormalities. Chest x-ray showed acute systolic heart failure --Given one dose IV Lasix yesterday. -- Cont metoprolol and can initiate further medical therapy when his renal function and blood pressure improve/stabilize. --Hesitant to discharge on diuretic at this point since creat up a little (4) Acute systolic CHF (congestive heart failure): Code(s): I50.21 - Acute systolic (congestive) heart failure Status: Acute Assessment and Plan: Chest x-ray showed acute systolic heart failure, looks worse than the prior x-ray. However, we have not been able to diurese him due to his hypotension. --Given one dose IV lasix yesterday --Not requiring O2 or c/o SOB -- Cont metoprolol and can initiate further medical therapy (ARB or ARNI, diuretic, spirono, etc) CAREFULLY when his renal function and blood pressure improve/stabilize. (5) Abnormal EKG: Code(s): R94.31 - Abnormal electrocardiogram [ECG] [EKG] Status: Acute Assessment and Plan: Patient's EKG on 11/23/2022 at 9:08 a.m. showed significant anterolateral T-wave inversion of concern for ischemia. Troponins were elevated at 0.214 also on 11/24/2022. These EKG changes occurred around his episode of hypotension, however, he may have underlying CAD/ ischemia contributing to his problems. -- Post cardioversion EKG still shows diffuse T-wave inversion from V1 through V6, of concern for underlying CAD. -- Lexiscan stress test showed no ischemia --Has coronary artery calcification by CT; explaned to pt he does have a degree of CAD, rec meds for primary prevention -- Add statin when liver function better and FU for CAD as well. (6) QT prolongation: Code(s): R94.31 - Abnormal electrocardiogram [ECG] [EKG] Status: Acute Assessment and Plan: Avoid QT prolonging drugs. QT interval has improved on repeat ECG. Will continue to monitor closely. (7) JACLYN (acute kidney injury): Code(s): N17.9 - Acute kidney failure, unspecified Status: Acute Assessment and Plan: Probably related to renal hypoperfusion with LV dysfunction and hypotension. -- A little worse today -- Shock liver has improving as well. (8) Hypertension: Qualifiers: Hypertension type: primary hypertension Qualified Code(s): I10 - Essential (primary) hypertension Code(s): I10 - Essential (primary) hypertension Status: Chronic Assessment and Plan: Labile; some hypotension earlier in hospitalization and sometimes hypertension.. 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 Advised the patient he will need close follow-up due to his health problems to prevent relapse. He will be back in town on SundayDecember 15 For morning dental appointment; will try to arrange for office follow-up on that date. Recommended he find a delineator in [place] as he needs ongoing
[2022-11-29] MEDS: INSULIN ASPART (*BKC) 100 UNITS/ML SUB-Q ×3 (12:12→21:23)
[2022-11-29 12:35] LABS: Glucose Point of Care 223 mg/dl (65-105)
--- NOTE | 2022-11-29 12:42 | P.PNNP_ITS ---
Progress Note: A&P Assessment and Plan (1) JACLYN (acute kidney injury): Code(s): N17.9 - Acute kidney failure, unspecified Status: Acute Assessment and Plan: * was resolving * creatinine up again in the last 48 hours * possibly related to transient hypotensive episodes (on 11/27/22) along with IV diuretics * urine output seems better * evaluation to date: * urine electrolytes prerenal (could just be reflective of diminished EF) * urine eosinophils rare * renal ultrasound without obstruction * CPK mildly elevated (but not enough to alter renal function) * likely due to previous hypotension coupled with prerenal factors from cardiomyopathy + bradycardia + afib * follow trend of repeat labs and UOP (2) Hyperkalemia: Code(s): E87.5 - Hyperkalemia Status: Acute Assessment and Plan: * resolved * quite severe/profound as noted by testing on * although related to #1, the severity of this issue seems out of proportion to his JACLYN/ARF * other possible issue (?) -- nothing apparent as of yet: * CPK only mildly elevated * LDH quite high * haptoglobin pending still * LFTs elevated but improving (3) Atrial flutter with rapid ventricular response: Code(s): I48.92 - Unspecified atrial flutter Status: Acute Assessment and Plan: * Cardiology following * s/p cardioversion (on 11/27/22) * on anticoagulation (4) Cardiomyopathy: Code(s): I42.9 - Cardiomyopathy, unspecified Status: Acute Assessment and Plan: * as noted by Echo * Cardiology following (5) Elevated LFTs: Code(s): R79.89 - Other specified abnormal findings of blood chemistry Status: Acute Assessment and Plan: * presumably due to shock liver from hypotension * INR elevated as well * Liver enzymes have been improving (6) Hypotension: Code(s): I95.9 - Hypotension, unspecified Status: Acute Assessment and Plan: * doing better at this time * follow trend of hemodynamics (7) Diabetes mellitus: Qualifiers: Diabetes mellitus complication status: with other specified complication Diabetes mellitus snf insulin use: without local company intermodal truck driver use Diabetes m ellitus type: type 2 Qualified Code(s): E11.69 - Type 2 diabetes mellitus with other specified complication Code(s): E11.9 - Type 2 diabetes mellitus without complications Status: Chronic Assessment and Plan: * follow accuchecks * glycemic control per hospitalists Will continue to follow. Subjective Date/time seen: 11/29/22 12:42 Blood pressure remains stable without the need for vasopressor support; dosed with IV lasix given CXR findings of CHF; creatinine up a bit (but this could be due to IV lasix) but is making more urine at this time (output documentation not completely accurate); anxious for discharge as he starts a new job on Sunday which is out of town. Exam Narrative: General: WD/WN male in NAD Heart: RRR, normal S1 and S2 Lungs: clear anteriorly but decreased at bases Abdomen: soft, nontender, nondistended, positive bowel sounds Extremities: no cyanosis, clubbing, or edema Skin: warm and intact Objective Data Vital Signs Vital Signs: Vital Signs Temp Pulse Resp BP Pulse Ox O2 Del Method 11/29/22 08:00 88 11/29/22 10:00 93 18
--- NOTE | 2022-11-29 12:42 | PM.PNNEP ---
Progress Note: A&P Assessment and Plan (1) JACLYN (acute kidney injury): Code(s): N17.9 - Acute kidney failure, unspecified Status: Acute Assessment and Plan: was resolving creatinine up again in the last 48 hours possibly related to transient hypotensive episodes (on 11/27/22) along with IV diuretics urine output seems better evaluation to date: urine electrolytes prerenal (could just be reflective of diminished EF) urine eosinophils rare renal ultrasound without obstruction CPK mildly elevated (but not enough to alter renal function) likely due to previous hypotension coupled with prerenal factors from cardiomyopathy + bradycardia + afib follow trend of repeat labs and UOP (2) Hyperkalemia: Code(s): E87.5 - Hyperkalemia Status: Acute Assessment and Plan: resolved quite severe/profound as noted by testing on although related to #1, the severity of this issue seems out of proportion to his JACLYN/ARF other possible issue (?) -- nothing apparent as of yet: CPK only mildly elevated LDH quite high haptoglobin pending still LFTs elevated but improving (3) Atrial flutter with rapid ventricular response: Code(s): I48.92 - Unspecified atrial flutter Status: Acute Assessment and Plan: Cardiology following s/p cardioversion (on 11/27/22) on anticoagulation (4) Cardiomyopathy: Code(s): I42.9 - Cardiomyopathy, unspecified Status: Acute Assessment and Plan: as noted by Echo Cardiology following (5) Elevated LFTs: Code(s): R79.89 - Other specified abnormal findings of blood chemistry Status: Acute Assessment and Plan: presumably due to shock liver from hypotension INR elevated as well Liver enzymes have been improving (6) Hypotension: Code(s): I95.9 - Hypotension, unspecified Status: Acute Assessment and Plan: doing better at this time follow trend of hemodynamics (7) Diabetes mellitus: Qualifiers: Diabetes mellitus complication status: with other specified complication Diabetes mellitus salvage determiner insulin use: without penitentiary use Diabetes mellitus type: type 2 Qualified Code(s): E11.69 - Type 2 diabetes mellitus with other specified complication Code(s): E11.9 - Type 2 diabetes mellitus without complications Status: Chronic Assessment and Plan: follow accuchecks glycemic control per hospitalists Will continue to follow. Subjective Date/time seen: 11/29/22 12:42 Blood pressure remains stable without the need for vasopressor support; dosed with IV lasix given CXR findings of CHF; creatinine up a bit (but this could be due to IV lasix) but is making more urine at this time (output documentation not completely accurate); anxious for discharge as he starts a new job on Sunday which is out of town. Exam Narrative: General: WD/WN male in NAD Heart: RRR, normal S1 and S2 Lungs: clear anteriorly but decreased at bases Abdomen: soft, nontender, nondistended, positive bowel sounds Extremities: no cyanosis, clubbing, or edema Skin: warm and intact Objective Data Vital Signs Vital Signs: Vital Signs Temp Pulse Resp BP Pulse Ox O2 Del Method 11/29/22 08:00 88 11/29/22 10:00 93 18 134/101 H 100 11/29/22 08:00 98.1 F 88 18 150/111 H 98 11/29/22 08:00 83 21 H 97 Room Air 11/29/22 06:00 98 F 83 21 H 111/81 97 11/29/22 06:00 83 11/29/22 04:00 97.7 F 83 23 H 135/103 H 100 11/29/22 04:00 83 15 98 Room Air 11/29/22 04:00 83 11/29/22 02:00 78 15 108/86 98 11/29/22 02:00 78 11/29/22 00:00 80 17 98 Room Air 11/29/22 00:00 80 11/28/22 22:00 84 11/29/22 00:00 97.7 F 80 17 110/79 98 11/28/22 22:00 86 20 110/86 100 11/28/22 20:00 88 11/28/22 20:00 98.2 F 90 20 124/92 H 98 11/28/22 20:00
--- NOTE | 2022-11-29 13:54 | ECG_ITS ---
Measurements Intervals [place] Rate: 124 P: VT: 0 QRS: 43 QRSD: 93 T: 258 QT: 341 QTc: 491 Interpretive Statements ATRIAL FLUTTER/TACHYCARDIA WITH RAPID VENTRICULAR RESPONSE LOW QRS VOLTAGE IN EXTREMITY LEADS [QRS DEFLECTION < 0.5 mV IN LIMB LEADS] ST DEVIATION AND MODERATE T-WAVE ABNORMALITY, CONSIDER ANTEROLATERAL ISCHEMIA [-0.1+ mV T WAVE IN V3-V6] COMPARED TO ECG 11/27/2022 09:57:25 ATRIAL FLUTTER NOW PRESENT Electronically Signed On 11-29-2022 15:39:10 POWER GENERATION ENGINEER by Teo Cho M.D.
--- NOTE | 2022-11-29 13:58 | PM.IMPN ---
Progress Note: A&P Assessment and Plan (1) Atrial flutter with rapid ventricular response: Code(s): I48.92 - Unspecified atrial flutter Status: Acute Assessment and Plan: Patient presents with atrial flutter with RVR. It was suspected the duration was nearly 2 months. Patient did undergo STEVAN with cardioversion on 11/27 and was converted to now sinus rhythm. Telemetry monitoring shows they may be back in a flutter. Continue Eliquis 5 mg b.i.d.. Continue metoprolol but dose may need to be increased. Discussed with Cardiology with possible plans for cardioversion tomorrow. this depends obviously on if patient decides to stay and not sign out against medical advice. (2) Acute systolic CHF (congestive heart failure): Code(s): I50.21 - Acute systolic (congestive) heart failure Status: Acute Assessment and Plan: Chest x-ray showed acute systolic heart failure related to the low EF and AFlutter/RVR Not been able to diurese him due to his hypotension. Was given one dose IV lasix 11/27 Not requiring O2 or c/o SOB Cont metoprolol and can initiate further medical therapy (ARB or ARNI, diuretic, spirono, etc) when able (3) Hypotension: Code(s): I95.9 - Hypotension, unspecified Status: Acute Assessment and Plan: BP better. Contineu to monitor closely. (4) Cardiomyopathy: Code(s): I42.9 - Cardiomyopathy, unspecified Status: Acute Assessment and Plan: As noted by Echo. Stress test showing no acute ischemic findings. Suspect CMP is nonischemic related to the RVR. Cardiology following (5) JACLYN (acute kidney injury): Code(s): N17.9 - Acute kidney failure, unspecified Status: Acute Assessment and Plan: Cr was normal on admisison but increased to 3.6. Cr improved to 1.1 but up to 1.8 past 2 days. Nephrology following and appreciate their input. Diuretics on hold (6) Diabetes mellitus: Qualifiers: Diabetes mellitus complication status: with other specified complication Diabetes mellitus fci insulin use: without extermination supervisor use Diabetes mellitus type: type 2 Qualified Code(s): E11.69 - Type 2 diabetes mellitus with other specified complication Code(s): E11.9 - Type 2 diabetes mellitus without complications Status: Chronic Assessment and Plan: A1c 10. The patient's blood glucose was reviewed on 11/29 Glucose remains reasonably well controlled. Continue AccuCheks covering with sliding scale. Hypoglycemia protocol available as needed. Continue current medications. (7) Elevated LFTs: Code(s): R79.89 - Other specified abnormal findings of blood chemistry Status: Acute Assessment and Plan: AST peaked at >7500 and ALT >3750. TBili up to 2.7. Presumably due to shock liver from hypotension. INR elevated as well. Hepatitis panel negative. Abd US showing mild GB wall thickening but no gallstones. 4mm GB wall polyp noted. Liver enzymes are improving Follow (8) Abnormal EKG: Code(s): R94.31 - Abnormal electrocardiogram [ECG] [EKG] Status: Acute Assessment and Plan: Patient's EKG on 11/23/2022 at 9:08 a.m. showed significant anterolateral T-wave inversion of concern for ischemia.? Troponins were elevated at 0.214 also on 11/24/2022. ? These EKG changes occurred around his episode of hypotension, however, concern for underlying CAD/ ischemia contributing to his problems. -Post cardioversion EKG still shows diffuse T-wave inversion from V1 through V6, of concern for underlying CAD. -Lexiscan stress test showed no ischemia -Has coronary artery calcification by CT; explained to pt he does have a degree of CAD, rec meds for primary prevention -Add statin when liver function better and FU for CAD as well. (9) QT prolongation: Code(s): R94.31 - Abnormal electrocardiogram [ECG] [EKG] Status: Acute Assessment and Plan: Avoid QT prolonging drugs.?
--- NOTE | 2022-11-29 15:14 | PC.NURSE ---
This patient, Oscar Dodd, was received from [icu] on 11/29/22 at 1505. Patient/family oriented to unit policies and routines. report from Yamileth
[2022-11-29 16:37] LABS: Glucose Point of Care 202 mg/dl (65-105)
[2022-11-29 17:51] LABS: Anion Gap 9 mmol/L (8-16); Blood Urea Nitrogen 25 mg/dL (9-20); Calcium 8.3 mg/dL (8.4-10.2); Carbon Dioxide 30 mmol/L (22-30); Chloride 91 mmol/L (98-107); Estimated CRCL calculation 60 ml/min; Estimated Glomerular Filt Rate 56; Glucose 184 mg/dL (65-110); Magnesium 1.8 mg/dL (1.6-2.3); Potassium 3.8 mmol/L (3.4-5.0); Sodium 130 mmol/L (137-145)
[2022-11-29] MEDS: MAGNESIUM SULF 2 GM/WATER 50ML 2 GM/50 ML BAG IVPB (18:47)
[2022-11-29] MEDS: POTASSIUM CHLORIDE 20 MEQ TABLET PO (18:47)
--- NOTE | 2022-11-29 19:13 | PC.NURSE ---
This patient, Oscar Dodd, was transferred to [ICU 6 ] on 11/29/22 at 1900. Personal belongings sent with patient. Report given to [Yamileth ]. Appropriate documentation sent with patient.
[2022-11-29] MEDS: TAMSULOSIN HCL 0.4 MG CAPSULE PO (21:21)
[2022-11-29 21:32] LABS: Glucose Point of Care 306 mg/dl (65-105)
[2022-11-29] MEDS: AMIODARONE 360 MG/D5W 200 ML 360 MG/200 ML BAG 33.33 MG IV CONT (21:42)
[2022-11-30] VITALS (18 sets, daily range): BP systolic 83–115; BP diastolic 66–92; PULSE 76–147; RESP 12–20; TEMP 36.4–36.9; O2SAT 94–100
[2022-11-30] MEDS: METOPROLOL TARTRATE INJ 5 MG/5 ML VIAL IV PUSH (00:17)
--- NOTE | 2022-11-30 00:22 | ECG_ITS ---
Measurements Intervals [place] Rate: 134 P: FL: 0 QRS: 47 QRSD: 101 T: 216 QT: 358 QTc: 535 Interpretive Statements ATRIAL FIBRILLATION WITH RAPID VENTRICULAR RESPONSE WITH ABERRANT CONDUCTION OR VENTRICULAR PREMATURE COMPLEXES LOW QRS VOLTAGE IN EXTREMITY LEADS [QRS DEFLECTION < 0.5 mV IN LIMB LEADS] MODERATE T-WAVE ABNORMALITY, CONSIDER ANTEROLATERAL ISCHEMIA [-0.1+ mV T WAVE IN V3-V6] COMPARED TO ECG 11/29/2022 14:29:52 ATRIAL FIBRILLATION NOW PRESENT ABERRANT CONDUCTION OF SUPRAVENTRICULAR BEAT(S) NOW PRESENT Electronically Signed On 11-30-2022 14:52:10 DENTISTRY PROFESSOR by Teo Cho M.D.
[2022-11-30] MEDS: AMPICILLIN 1 GM/NS 50 ML 1 GM/50 ML BAG IVPB ×3 (00:37→11:51)
[2022-11-30 04:55] LABS: Albumin Level 3.7 g/dL (3.5-5.1); Alkaline Phosphatase 77 U/L (38-126); Anion Gap 7 mmol/L (8-16); Aspartate Amino Transferase 169 U/L (17-59); Bilirubin,Total 2.1 mg/dL (0.2-1.3); Blood Urea Nitrogen 23 mg/dL (9-20); Carbon Dioxide 32 mmol/L (22-30); Chloride 95 mmol/L (98-107); Estimated CRCL calculation 60 ml/min; Estimated Glomerular Filt Rate 56; Glucose 197 mg/dL (65-110); Magnesium 1.9 mg/dL (1.6-2.3); Phosphorus 3.7 mg/dL (2.5-4.5); Potassium 3.8 mmol/L (3.4-5.0); Sodium 134 mmol/L (137-145)
[2022-11-30 04:56] LABS: Basophils Percent Auto 0.4 % (0.2-1.2); Eosinophils Absolute Auto 0.2 K/mm3 (0-0.3); Hematocrit 41.6 % (42.0-52.0); Hemoglobin 13.7 g/dL (14.0-18.0); Immature Granulocyte Absolute 0.04 K/mm3 (0.00-0.031); Immature Granulocyte Percent A 0.5 % (0-0.5); Lymphocytes Absolute Auto 2.62 K/mm3 (0.9-3.2); Mean Corpuscular HGB Conc 32.9 g/dl (32-36); Mean Corpuscular Hemoglobin 31.8 pg (26-34); Mean Corpuscular Volume 96.5 fl (80-100); Mean Platelet Volume 10.8 fl (7.4-10.4); Monocytes Percent Auto 12.1 % (2.6-8.5); Neutrophils Absolute Auto 4.6 K/mm3 (1.3-6.7); Platelet Count Result 172 k/mm3 (150-375); Red Blood Count 4.31 M/mm3 (4.6-6.20); Red Cell Distribution Width 13.7 % (11.5-14.5); White Blood Count 8.5 K/mm3 (4.5-10.0)
[2022-11-30 05:58] LABS: Alanine Aminotransferase 931 U/L (6-50)
[2022-11-30 07:35] LABS: Glucose Point of Care 197 mg/dl (65-105)
[2022-11-30] MEDS: APIXABAN 5 MG TABLET PO (08:26)
[2022-11-30] MEDS: SENNA/DOCUSATE SODIUM TABLET 1 TAB PO (08:26)
[2022-11-30] MEDS: METOPROLOL TARTRATE 25 MG TABLET PO ×2 (08:26→22:03)
[2022-11-30] MEDS: PANTOPRAZOLE 40 MG TABLET PO (08:27)
[2022-11-30] MEDS: EUCERIN CREAM 120 GM JAR 1 APPLIC TOPICAL (08:27)
[2022-11-30] MEDS: MAGNESIUM SULF 2 GM/WATER 50ML 2 GM/50 ML BAG IVPB (08:33)
--- NOTE | 2022-11-30 08:42 | WPDINTPN ---
Progress Note: A&P Assessment and Plan (1) Atrial flutter with rapid ventricular response: Code(s): I48.92 - Unspecified atrial flutter Status: Acute Assessment and Plan: Status post DC cardioversion 11/29 patient went back into a flutter with RVR. He was started on amiodarone but developed bradycardia which was discontinue Currently in sinus rhythm Continue low-dose beta-jakub Continue Eliquis Further plan as per Cardiology (2) Hypotension: Code(s): I95.9 - Hypotension, unspecified Status: Acute Assessment and Plan: Likely cardiogenic and secondary to beta-jakub. Patient also received 100 mg of propofol for sedation Patient became hypotensive post DC cardioversion He was given 500 mL of fluid bolus and started on dopamine infusion. He was asymptomatic except some nausea Dopamine was weaned off after a 500 mL of 5% albumin bolus Overnight he was restarted on Ridge-Synephrine drip after he was given 37.5 mg of metoprolol. I suspect the overnight episode of hypotension was secondary to the beta-jakub. I have decreased the dose to 25 mg q.12 hours Blood pressure adequate at this time Continue monitor (3) Cardiomyopathy: Code(s): I42.9 - Cardiomyopathy, unspecified Status: Acute Assessment and Plan: Echo Summary 11/23 ? 1. Complete two-dimensional, color flow and Doppler transthoracicechocardiogram is performed. ? 2. Right ventricular chamber dimension is normal. ? 3. Right ventricular systolic function is moderately reduced. TAPSE 1.3. ? 4. Left ventricular systolic function is moderately reduced, estimated at35-40%. ? 5. Left ventricular chamber dimension is normal. ? 6. There is no increased left ventricular wall thickness. ? 7. The left ventricular diastolic function is indeterminate. ? 8. Left atrial chamber dimension is moderately enlarged. ? 9. Right atrial chamber dimension is moderately enlarged. ? 10. There is mild mitral valve regurgitation. ? 11. There is mild to moderate tricuspid valve regurgitation. ? 12. Mild pulmonary hypertension, estimated pulmonary arterial systolic pressure is 35 mmHg. See above (4) JACLYN (acute kidney injury): Code(s): N17.9 - Acute kidney failure, unspecified Status: Acute Assessment and Plan: Patient presented with JACLYN which improved and creatinine decreased Creatinine increased again Likely secondary to hypotension He did receive albumin bolus and blood pressures improved now and he is currently off of vasopressors CK level is normal Creatinine has normalized Renal ultrasound on 11/23 showed normal kidneys without any hydronephrosis Nephrology is following Monitor urine output electrolytes and creatinine Maintain blood pressure (5) Transaminitis: Code(s): R74.01 - Elevation of levels of liver transaminase levels Status: Acute Assessment and Plan: Right upper quadrant ultrasound - Mild gallbladder wall thickening, nonspecific. No visible gallstone evident, and there is negative sonographic Sepulveda's sign. Hepatitis panel negative Likely secondary to congestion versus hypoperfusion from cardiomyopathy Levels are improving Monitor (6) Type 2 diabetes mellitus: Qualifiers: Diabetes mellitus nursing home insulin use: without nursing home use Diabetes mellitus complication status: with hyperglycemia Qualified Code(s): E11.65 - Type 2 diabetes mellitus with hyperglycemia Code(s): E11.9 - Type 2 diabetes mellitus without complications Status: Chronic Assessment and Plan: Continue sliding scale insulin which I have changed to moderate Add Lantus (7) Electrolyte abnormality: Code(s): E87.8 - Other disorders of electrolyte and fluid balance, not elsewhere classified Status: Acute Assessment and Plan: Replace low magnesium (8) Nausea: Code(s): R11.0 - Nausea Status: Acute Assessment and Plan: Appears to have resolved P.r.johann Cramer
[2022-11-30] MEDS: INSULIN GLARGINE (*BKC) 100 UNITS/ML 10 UNITS SUB-Q (08:54)
--- NOTE | 2022-11-30 08:59 | PM.IMPN ---
Progress Note: A&P Assessment and Plan (1) Nonsustained ventricular tachycardia: Code(s): I47.29 - Other ventricular tachycardia Status: Acute Assessment and Plan: After moving to a medical floor on telemetry, he had an episode of 40+ beat run of wide complex regular tachycardia rate around 200 consistent with nonsustained V-tach.? Patient was symptomatic with dizziness.? Patient was moved to ICU and start amiodarone drip but could not tolerate. Discussed with Cardiology and cement finisher. Plan under consideration is transfer for EP study and possible LHC. Stress test may have been false negative if he has balanced lesions. (2) Atrial flutter with rapid ventricular response: Code(s): I48.92 - Unspecified atrial flutter Status: Acute Assessment and Plan: Patient presents with atrial flutter with RVR.? It was suspected the duration was nearly 2 months.? Patient did undergo STEVAN with cardioversion on 11/27 and was converted to nml sinus rhythm.? Telemetry however showing that he reverted back to AFlutter on 11/29. He remains on Eliquis 5 mg b.i.d. and metoprolol.? Discussed with Cardiology with possible plans for transfer. (3) Acute systolic CHF (congestive heart failure): Code(s): I50.21 - Acute systolic (congestive) heart failure Status: Acute Assessment and Plan: Chest x-ray showed pulmonary edema and with pedal edema c/w acute systolic heart failure related to the low EF and AFlutter/RVR BNP 1730. Not been able to diurese him due to his hypotension. Was given one dose IV lasix 11/27 Not requiring O2 or c/o SOB Cont metoprolol and can initiate further medical therapy (ARB or ARNI, diuretic, spirono, etc) when able (4) Hypotension: Code(s): I95.9 - Hypotension, unspecified Status: Acute Assessment and Plan: Likely cardiogenic and secondary to beta-jakub. Patient also received 100 mg of propofol for sedation Patient became hypotensive post DC cardioversion. He was given 500 mL of fluid bolus and started on dopamine infusion. He was asymptomatic except some nausea. Dopamine was weaned off after a 500 mL of 5% albumin bolus He was restarted on Ridge-Synephrine drip after he was given 37.5 mg of metoprolol; episode of HoTN was secondary to metoprolol. Able to wean off all pressors by 11/28/22. Blood pressure adequate at this time Continue to monitor (5) Cardiomyopathy: Code(s): I42.9 - Cardiomyopathy, unspecified Status: Acute Assessment and Plan: As noted by Echo. Stress test showing no acute ischemic findings. Suspect CMP is nonischemic related to the AFib/RVR although can not exclude balanced cardiac lesions. Cardiology following (6) JACLYN (acute kidney injury): Code(s): N17.9 - Acute kidney failure, unspecified Status: Acute Assessment and Plan: Cr was normal on admission but increased to 3.6. Cr improved to 1.1 but up to 1.8 Nephrology following and appreciate their input. Diuretics on hold. Cr trending down again to 1.3. Follow (7) Type 2 diabetes mellitus: Qualifiers: Diabetes mellitus senior living insulin use: without senior living use Diabetes mellitus complication status: with hyperglycemia Qualified Code(s): E11.65 - Type 2 diabetes mellitus with hyperglycemia Code(s): E11.9 - Type 2 diabetes mellitus without complications Status: Chronic Assessment and Plan: A1c 10. The patient's blood glucose was reviewed on 11/30 Glucose remains elevated at times to 300. Glucose 197 this morning. Continue AccuCheks covering with sliding scale.? Hypoglycemia protocol available as needed.? Lantus added. (8) Transaminitis: Code(s): R74.01 - Elevation of levels of liver transaminase levels Status: Acute Assessment and Plan: AST peaked at >7500 and ALT >3750. TBili up to 2.7. Presumably due to shock liver from hypotension. INR elevated as well. Hepatitis panel negative. Abd
[2022-11-30] MEDS: POTASSIUM CHLORIDE 20 MEQ TABLET PO (09:57)
--- NOTE | 2022-11-30 11:08 | WPDGIPROGNO ---
Progress Note: A&P Assessment and Plan (1) Elevated LFTs: Code(s): R79.89 - Other specified abnormal findings of blood chemistry Status: Acute Assessment and Plan: Liver function tests have been decreasing. Elevated LFTs appear to have been from ?shock liver?. This should resolve on its own. Continue to monitor liver function test conservatively until resolution. (2) Cardiomyopathy: Code(s): I42.9 - Cardiomyopathy, unspecified Status: Acute (3) Atrial flutter with rapid ventricular response: Code(s): I48.92 - Unspecified atrial flutter Status: Acute Assessment and Plan: Patient is status post conversion now in sinus rhythm. I understand ablation is being considered. (4) Nonsustained ventricular tachycardia: Code(s): I47.29 - Other ventricular tachycardia Status: Acute Subjective Date/time seen: 11/30/22 11:08 Interval history: Patient alert more comfortable today. Denies abdominal pain. Heart rate currently in sinus rhythm. Review of Systems Review of Systems: Review of systems noncontributory. Exam Narrative: Physical exam reveals patient lying in bed comfortable at rest. HEENT exam unremarkable. Patient anicteric. Lungs are clear. Heart without murmur. Abdomen bowel sounds present soft nontender no hepatomegaly. Objective Data Vital Signs Vital Signs: Vital Signs - 24 hr 11/29/22 12:00 11/29/22 12:00 11/29/22 14:00 Temperature 97.6 F Pulse Rate 90 90 123 H Respiratory Rate 19 20 Blood Pressure 139/90 105/60 Pulse Oximetry 100 98 Oxygen Delivery Oxygen Flow Rate 11/29/22 15:30 11/29/22 16:05 11/29/22 16:00 Temperature 97.4 F L Pulse Rate 125 H 71 92 Respiratory Rate 16 18 Blood Pressure 111/97 H 116/75 Pulse Oximetry 99 99 Oxygen Delivery Oxygen Flow Rate 11/29/22 20:00 11/29/22 21:42 11/29/22 21:50 Temperature 97.9 F Pulse Rate 83 85 48 L Respiratory Rate 16 Blood Pressure 112/87 103/67 Pulse Oximetry 98 Oxygen Delivery Oxygen Flow Rate 11/29/22 22:18 11/29/22 20:00 11/29/22 22:00 Temperature Pulse Rate 86 Respiratory Rate Blood Pressure Pulse Oximetry 84 L 99 Oxygen Delivery Room Air Room Air Oxygen Flow Rate 11/29/22 22:00 11/29/22 20:00 11/29/22 22:19 Temperature Pulse Rate 86 86 Respiratory Rate 14 Blood Pressure 102/65 Pulse Oximetry 95 95 Oxygen Delivery Nasal Cannula Oxygen Flow Rate 2 11/29/22 20:30 11/29/22 20:50 11/29/22 22:00 Temperature Pulse Rate 85 90 48 L Respiratory Rate Blood Pressure 114/92 H 109/80 Pulse Oximetry Oxygen Delivery Oxygen Flow Rate 11/30/22 00:17 11/30/22 00:00 11/30/22 00:00 Temperature 98.1 F Pulse Rate 147 H 88 Respiratory Rate 17 Blood Pressure 105/85 Pulse Oximetry 94 98 Oxygen Delivery Room Air Oxygen Flow Rate 11/30/22 00:00 11/30/22 00:15 11/30/22 02:00 Temperature Pulse Rate 91 143 H 109 H Respiratory Rate Blood Pressure Pulse Oximetry Oxygen Delivery Oxygen Flow Rate 11/30/22 02:00 11/30/22 04:00 11/30/22 04:00 Temperature 97.9 F Pulse Rate 109 H 80 Respiratory Rate 20 20 Blood Pressure 94/66 L 96/82 L Pulse Oximetry 97 100 100 Oxygen Delivery Room Air Oxygen Flow Rate 11/30/22 04:00 11/30/22 06:00 11/30/22 06:00 Temperature Pulse Rate 80 78 76 Respiratory Rate 14 Blood Pressure 83/70 L Pulse Oximetry 97 Oxygen Delivery Oxygen Flow Rate 11/30/22 07:51 11/30/22 08:00 11/30/22 08:00 Temperature 98 F Pulse Rate 81 81 Respiratory Rate 15 Blood Pressure 105/83 Pulse Oximetry 100 Oxygen Delivery Room Air Oxygen Flow Rate 11/30/22 10:00 11/30/22 10:00 Temperature Pulse Rate 80 81 Respiratory Rate 16 Blood Pressure 105/85 Pulse Oximetry 98 Oxygen Delivery Oxygen Flow Rate Intake/Output Intake/Output: Intake & Output 11/27/22
--- NOTE | 2022-11-30 11:17 | PCNWS ---
Weekly nutritional screen. Patient is tolerating current diet with adequate intake. No weight loss reported. No nutritional needs at this time.
--- NOTE | 2022-11-30 11:24 | P.PNNP_ITS ---
Progress Note: A&P Assessment and Plan (1) JACLYN (acute kidney injury): Code(s): N17.9 - Acute kidney failure, unspecified Status: Acute Assessment and Plan: * doing better * creatinine up again a few days ago * possibly related to transient hypotensive episodes (on 11/27/22) along with IV diuretics * urine output seems better now as is creatinine * evaluation to date: * urine electrolytes prerenal (could just be reflective of diminished EF) * urine eosinophils rare * renal ultrasound without obstruction * CPK mildly elevated (but not enough to alter renal function) * likely due to previous hypotension coupled with prerenal factors from cardiomyopathy + bradycardia + afib * follow trend of repeat labs and UOP (2) Hyperkalemia: Code(s): E87.5 - Hyperkalemia Status: Acute Assessment and Plan: * resolved * quite severe/profound as noted by testing on * although related to #1, the severity of this issue seems out of proportion to his JACLYN/ARF * other possible issue (?) -- nothing apparent as of yet: * CPK only mildly elevated * LDH quite high * haptoglobin pending still * LFTs elevated but improving (3) Atrial flutter with rapid ventricular response: Code(s): I48.92 - Unspecified atrial flutter Status: Acute Assessment and Plan: * Cardiology following * s/p cardioversion (on 11/27/22) * on anticoagulation * further intervention given recent events? (4) Cardiomyopathy: Code(s): I42.9 - Cardiomyopathy, unspecified Status: Acute Assessment and Plan: * as noted by Echo * Cardiology following (5) Elevated LFTs: Code(s): R79.89 - Other specified abnormal findings of blood chemistry Status: Acute Assessment and Plan: * presumably due to shock liver from hypotension * INR elevated as well * Liver enzymes have been improving (6) Hypotension: Code(s): I95.9 - Hypotension, unspecified Status: Acute Assessment and Plan: * doing better at this time * follow trend of hemodynamics (7) Diabetes mellitus: Qualifiers: Diabetes mellitus type: type 2 Diabetes mellitus jail insulin use: without joint terminal attack controller use Diabetes mellitus complication status: with other specified complication Qualified Code(s): E11.69 - Type 2 diabetes mellitus with other specified complication Code(s): E11.9 - Type 2 diabetes mellitus without complications Status: Chronic Assessment and Plan: * follow accuchecks * glycemic control per hospitalists Will continue to follow. Subjective Date/time seen: 11/30/22 11:24 Events noted yesterday -- transferred out of ICU yesterday but then had and episode of nonsustained V-tach in association with dizziness; subsequently transferred back to ICU and started on amiodarone gtt; unfortunately, was unable to tolerate amiodarone due to significant bradycardia so this was discontinued; currently, feels better at this time with no other acute complaints; patient reports increased urine output at this time. Exam Narrative: General: WD/WN male in NAD Heart: RRR, normal S1 and S2 Lungs: clear anteriorly but decreased at bases Abdomen: soft, nontender, nondistended, positive bowel sounds Extremities: no cyanosis, clubbing, or edema Skin: warm and intact Objective Data Vital Signs Vital Signs:
--- NOTE | 2022-11-30 11:24 | PM.PNNEP ---
Progress Note: A&P Assessment and Plan (1) JACLYN (acute kidney injury): Code(s): N17.9 - Acute kidney failure, unspecified Status: Acute Assessment and Plan: doing better creatinine up again a few days ago possibly related to transient hypotensive episodes (on 11/27/22) along with IV diuretics urine output seems better now as is creatinine evaluation to date: urine electrolytes prerenal (could just be reflective of diminished EF) urine eosinophils rare renal ultrasound without obstruction CPK mildly elevated (but not enough to alter renal function) likely due to previous hypotension coupled with prerenal factors from cardiomyopathy + bradycardia + afib follow trend of repeat labs and UOP (2) Hyperkalemia: Code(s): E87.5 - Hyperkalemia Status: Acute Assessment and Plan: resolved quite severe/profound as noted by testing on although related to #1, the severity of this issue seems out of proportion to his JACLYN/ARF other possible issue (?) -- nothing apparent as of yet: CPK only mildly elevated LDH quite high haptoglobin pending still LFTs elevated but improving (3) Atrial flutter with rapid ventricular response: Code(s): I48.92 - Unspecified atrial flutter Status: Acute Assessment and Plan: Cardiology following s/p cardioversion (on 11/27/22) on anticoagulation further intervention given recent events? (4) Cardiomyopathy: Code(s): I42.9 - Cardiomyopathy, unspecified Status: Acute Assessment and Plan: as noted by Echo Cardiology following (5) Elevated LFTs: Code(s): R79.89 - Other specified abnormal findings of blood chemistry Status: Acute Assessment and Plan: presumably due to shock liver from hypotension INR elevated as well Liver enzymes have been improving (6) Hypotension: Code(s): I95.9 - Hypotension, unspecified Status: Acute Assessment and Plan: doing better at this time follow trend of hemodynamics (7) Diabetes mellitus: Qualifiers: Diabetes mellitus type: type 2 Diabetes mellitus petroleum terminal plant operator insulin use: without petroleum terminal plant operator use Diabetes mellitus complication status: with other specified complication Qualified Code(s): E11.69 - Type 2 diabetes mellitus with other specified complication Code(s): E11.9 - Type 2 diabetes mellitus without complications Status: Chronic Assessment and Plan: follow accuchecks glycemic control per hospitalists Will continue to follow. Subjective Date/time seen: 11/30/22 11:24 Events noted yesterday -- transferred out of ICU yesterday but then had and episode of nonsustained V-tach in association with dizziness; subsequently transferred back to ICU and started on amiodarone gtt; unfortunately, was unable to tolerate amiodarone due to significant bradycardia so this was discontinued; currently, feels better at this time with no other acute complaints; patient reports increased urine output at this time. Exam Narrative: General: WD/WN male in NAD Heart: RRR, normal S1 and S2 Lungs: clear anteriorly but decreased at bases Abdomen: soft, nontender, nondistended, positive bowel sounds Extremities: no cyanosis, clubbing, or edema Skin: warm and intact Objective Data Vital Signs Vital Signs: Vital Signs Temp Pulse Resp BP Pulse Ox O2 Del Method O2 Flow Rate 11/30/22 10:00 81 16 105/85 98 11/30/22 10:00 80 11/30/22 08:00 81 11/30/22 08:00 Room Air 11/30/22 07:51 98 F 81 15 105/83 100 11/30/22 06:00 76 14 83/70 L 97 11/30/22 06:00 78 11/30/22 04:00 80 11/30/22 04:00 100 Room Air 11/30/22 04:00 97.9 F 80 20 96/82 L 100 11/30/22 02:00 109 H 20 94/66 L 97 11/30/22 02:00 109 H 11/30/22 00:15 143 H 11/30/22 00:00 91 11/30/22 00:00 98 Room Air
[2022-11-30 11:45] LABS: Glucose Point of Care 328 mg/dl (65-105)
[2022-11-30] MEDS: INSULIN ASPART (*BKC) 100 UNITS/ML SUB-Q ×2 (11:50→17:06)
--- NOTE | 2022-11-30 12:14 | PM.PNCARD ---
Progress Note: A&P Assessment and Plan (1) Nonsustained ventricular tachycardia: Code(s): I47.29 - Other ventricular tachycardia Status: Acute Assessment and Plan: Long run of rapid V tach, 41 beats, rate 200, symptomatic. --Pt at increased risk of SCD and other untoward events --Suspicious that he may indeed have underlying CAD --Cont BB --Daily lytes --Counseled patient that this can be a lethal arrhythmia --Needs EP evaluation. --Discussed w/ Dr. Hobson EP at [facility]; pt on waiting list for transfer (2) Atrial flutter with rapid ventricular response: Code(s): I48.92 - Unspecified atrial flutter Status: Acute Assessment and Plan: Patient presents with persistent atrial flutter with rapid ventricular response with suspected duration of nearly 2 months. status post cardioversion on 11/27/2022, but having recurrent P.A.Flutter. Also had some a fib RVR early on 11/30/2022. -- Cont anticoagulation (changing Eliquis to Lovenox) --Cont Metoprolol 25 mg Q 12 Hr -- Intolerant of IV amiodarone --Will try amiodarone 200 mg q 8 Hr po --Needs an electrophysiology consultation. Possible ablation? (3) Hypotension: Code(s): I95.9 - Hypotension, unspecified Status: Acute Assessment and Plan: Improved , now off vasopressin. Patient's blood pressure is very sensitive to medications, and his renal function is very sensitive to hypotension. (4) Cardiomyopathy: Code(s): I42.9 - Cardiomyopathy, unspecified Status: Acute Assessment and Plan: Echocardiogram reveals moderate LV dysfunction EF 35-40% without clear associated wall motion abnormalities. Last chest x-ray still showed a lot of CHF. -- Cont metoprolol and can initiate further medical therapy when his renal function and blood pressure improve/stabilize. --I remain suspicious that there is underlying CAD (5) Acute systolic CHF (congestive heart failure): Code(s): I50.21 - Acute systolic (congestive) heart failure Status: Acute Assessment and Plan: Acute systolic heart failure, looks worse than the prior x-ray. However, we have not been able to diurese him due to his hypotension. --Not requiring O2 or c/o SOB --Not much edema -- Cont metoprolol and can initiate further medical therapy (ARB or ARNI, diuretic, spirono, etc) CAREFULLY when his renal function and blood pressure improve/stabilize. --Recheck CXR tmr --May be able to tolerate po diuretic, laine now that renal fxn has improved. Re-evaluate tmr. (6) Abnormal EKG: Code(s): R94.31 - Abnormal electrocardiogram [ECG] [EKG] Status: Acute Assessment and Plan: Patient's EKG on 11/23/2022 at 9:08 a.m. showed significant anterolateral T-wave inversion of concern for ischemia (Welen's T waves), which have persisted. Welen's T waves are highly suggestive of underlying CAD. Troponins were elevated at 0.214 also on 11/24/2022. These EKG changes occurred around his episode of hypotension, however, he may have underlying CAD/ ischemia contributing to his problems. -- Has coronary artery calcification by CT -- Add statin when liver function better and FU for CAD as well -- Lexiscan stress test showed no ischemia --However, I remain suspicious he may have significant underlying CAD and feel he needs a cardiac cath --Hold Eliquis; use Lovenox (7) Bradycardia: Code(s): R00.1 - Bradycardia, unspecified Status: Acute Assessment and Plan: Intermittent bradycardia, heart rates in the upper 40s-50's, has limited treatment of the patient's tachyarrhythmias. (8) QT prolongation: Code(s): R94.31 - Abnormal electrocardiogram [ECG] [EKG] Status: Acute Assessment and Plan: Occurred in the setting of severe metabolic abnormalities and hypotension. QT interval has improved on recent ECG. Will continue to monitor closely. (9) JACLYN (acute kidney injury): Code(s): N17.9 - Acute kidne
[2022-11-30 17:05] LABS: Glucose Point of Care 268 mg/dl (65-105)
[2022-11-30] MEDS: AMIODARONE HCL 200 MG TABLET PO (19:58)
[2022-11-30] MEDS: ENOXAPARIN 100 MG/ML SYRINGE SUB-Q (19:59)
[2022-11-30] MEDS: TAMSULOSIN HCL 0.4 MG CAPSULE PO (20:00)
[2022-11-30 20:09] LABS: Glucose Point of Care 170 mg/dl (65-105)
[2022-11-30] MEDS: AMOXICILLIN 500 MG CAPSULE PO (22:04)
[2022-12-01] VITALS (89 sets, daily range): BP systolic 89–119; BP diastolic 50–95; PULSE 64–125; RESP 11–30; TEMP 36.3–36.7; O2SAT 94–100
[2022-12-01 04:07] LABS: Basophils Absolute Auto 0.1 K/mm3 (0.0-0.1); Basophils Percent Auto 0.6 % (0.2-1.2); Eosinophils Absolute Auto 0.1 K/mm3 (0-0.3); Eosinophils Percent Auto 1.5 % (0-4.4); Hematocrit 38.4 % (42.0-52.0); Hemoglobin 12.6 g/dL (14.0-18.0); Immature Granulocyte Absolute 0.03 K/mm3 (0.00-0.031); Immature Granulocyte Percent A 0.4 % (0-0.5); Lymphocytes Absolute Auto 2.31 K/mm3 (0.9-3.2); Lymphocytes Percent Auto 28.9 % (18.3-44.2); Mean Corpuscular HGB Conc 32.8 g/dl (32-36); Mean Corpuscular Hemoglobin 30.7 pg (26-34); Mean Corpuscular Volume 93.7 fl (80-100); Mean Platelet Volume 11.3 fl (7.4-10.4); Monocytes Absolute Auto 0.8 K/mm3 (0.1-0.6); Monocytes Percent Auto 9.4 % (2.6-8.5); Neutrophils Absolute Auto 4.7 K/mm3 (1.3-6.7); Neutrophils Percent Auto 59.2 % (45.5-73.1); Platelet Count Result 180 k/mm3 (150-375); Red Cell Distribution Width 13.6 % (11.5-14.5)
[2022-12-01 04:13] LABS: Magnesium 1.9 mg/dL (1.6-2.3)
[2022-12-01 04:16] LABS: Alanine Aminotransferase 706 U/L (6-50); Albumin Level 3.6 g/dL (3.5-5.1); Alkaline Phosphatase 70 U/L (38-126); Anion Gap 6 mmol/L (8-16); Aspartate Amino Transferase 133 U/L (17-59); Bilirubin,Total 1.9 mg/dL (0.2-1.3); Blood Urea Nitrogen 19 mg/dL (9-20); Calcium 8.1 mg/dL (8.4-10.2); Carbon Dioxide 28 mmol/L (22-30); Chloride 98 mmol/L (98-107); Estimated CRCL calculation 70 ml/min; Estimated Glomerular Filt Rate > 60; Glucose 119 mg/dL (65-110); Potassium 3.6 mmol/L (3.4-5.0); Sodium 132 mmol/L (137-145)
[2022-12-01] MEDS: AMOXICILLIN 500 MG CAPSULE PO ×2 (05:57→15:27)
[2022-12-01] MEDS: AMIODARONE HCL 200 MG TABLET PO ×2 (05:57→15:27)
--- NOTE | 2022-12-01 07:38 | P.PNIM_ITS ---
Progress Note: A&P Assessment and Plan (1) Nonsustained ventricular tachycardia: Code(s): I47.29 - Other ventricular tachycardia Status: Acute Assessment and Plan: After moving to a medical floor on telemetry, he had an episode of 40+ beat run of wide complex regular tachycardia rate around 200 consistent with nonsustained V-tach.? Patient was symptomatic with dizziness.? Patient was moved to ICU and start amiodarone drip but could not tolerate. Discussed with Cardiology and skelp processor. Plan under consideration is transfer for EP study and possible LHC. Stress test may have been false negative if he has balanced lesions. (2) Atrial flutter with rapid ventricular response: Code(s): I48.92 - Unspecified atrial flutter Status: Acute Assessment and Plan: Patient presents with atrial flutter with RVR.? It was suspected the duration was nearly 2 months.? Patient did undergo STEVAN with cardioversion on 11/27 and was converted to nml sinus rhythm.? Telemetry however showing that he reverted back to AFlutter on 11/29. He remains on Eliquis 5 mg b.i.d. and metoprolol.? Discussed with Cardiology with possible plans for transfer. (3) Acute systolic CHF (congestive heart failure): Code(s): I50.21 - Acute systolic (congestive) heart failure Status: Acute Assessment and Plan: Chest x-ray showed pulmonary edema and with pedal edema c/w acute systolic heart failure related to the low EF and AFlutter/RVR BNP 1730. Not been able to diurese him due to his hypotension. Was given one dose IV lasix 11/27 Not requiring O2 or c/o SOB Cont metoprolol and can initiate further medical therapy (ARB or ARNI, diuretic, spirono, etc) when able (4) Hypotension: Code(s): I95.9 - Hypotension, unspecified Status: Acute Assessment and Plan: Likely cardiogenic and secondary to beta-jakub. Patient also received 100 mg of propofol for sedation Patient became hypotensive post DC cardioversion. He was given 500 mL of fluid bolus and started on dopamine infusion. He was asymptomatic except some nausea. Dopamine was weaned off after a 500 mL of 5% albumin bolus He was restarted on Ridge-Synephrine drip after he was given 37.5 mg of metoprolol; episode of HoTN was secondary to metoprolol. Able to wean off all pressors by 11/28/22. Blood pressure adequate at this time Continue to monitor (5) Cardiomyopathy: Code(s): I42.9 - Cardiomyopathy, unspecified Status: Acute Assessment and Plan: As noted by Echo. Stress test showing no acute ischemic findings. Suspect CMP is nonischemic related to the AFib/RVR although can not exclude balanced cardiac lesions. Cardiology following (6) JACLYN (acute kidney injury): Code(s): N17.9 - Acute kidney failure, unspecified Status: Acute Assessment and Plan: Cr was normal on admission but increased to 3.6. Cr improved to 1.1 but up to 1.8 Nephrology following and appreciate their input. Diuretics on hold. Cr trending down again to 1.3. Follow (7) Type 2 diabetes mellitus: Qualifiers: Diabetes mellitus retirement insulin use: without retirement use Diabetes mellitus complication status: with hyperglycemia Qualified Code(s): E11.65 - Type 2 diabetes mellitus with hyperglycemia Code(s): E11.9 - Type 2 diabetes mellitus without complications Status: Chronic Assessment and Plan: A1c 10. The patient's blood glucose was reviewed on 11/30 Glucose remains elevated at times to 300. Glucose 197 this morning. Continue AccuCheks covering with sliding scale.? Hypog
[2022-12-01] MEDS: INSULIN GLARGINE (*BKC) 100 UNITS/ML 10 UNITS SUB-Q (08:54)
[2022-12-01] MEDS: ENOXAPARIN 100 MG/ML SYRINGE SUB-Q (08:55)
[2022-12-01] MEDS: METOPROLOL TARTRATE 25 MG TABLET PO (08:56)
[2022-12-01] MEDS: SENNA/DOCUSATE SODIUM TABLET 1 TAB PO ×2 (08:57→17:00)
[2022-12-01] MEDS: PANTOPRAZOLE 40 MG TABLET PO (08:59)
[2022-12-01] MEDS: POTASSIUM CHLORIDE 20 MEQ PACKET (FOR LIQUID) 40 MEQ PO (09:02)
--- NOTE | 2022-12-01 09:14 | WPDINTPN ---
Progress Note: A&P Assessment and Plan (1) Atrial flutter with rapid ventricular response: Code(s): I48.92 - Unspecified atrial flutter Status: Acute Assessment and Plan: Status post DC cardioversion 11/27 11/29 patient went back into a flutter with RVR. Patient also had episode of NSVT. He was started on amiodarone but developed bradycardia which was discontinued Currently in sinus rhythm but continues to go in and out of narrow complex tachycardia Patient is on low-dose beta-jakub and p.o. amiodarone as per Cardiology Eliquis has been switched to Lovenox in anticipation of invasive procedures Patient is awaiting transfer to [facility] for EP study and possible cardiac catheterization (2) Hypotension: Code(s): I95.9 - Hypotension, unspecified Status: Acute Assessment and Plan: Patient was transferred to ICU with hypotension which was likely cardiogenic and secondary to beta-jakub. Patient also received 100 mg of propofol for sedation Patient became hypotensive post DC cardioversion He was given 500 mL of fluid bolus and started on dopamine infusion. He was asymptomatic except some nausea Dopamine was weaned off after a 500 mL of 5% albumin bolus Overnight he was restarted on Ridge-Synephrine drip after he was given 37.5 mg of metoprolol. I suspect the overnight episode of hypotension was secondary to the beta-jakub. I have decreased the dose to 25 mg q.12 hours Blood pressure adequate at this time Continue monitor (3) Cardiomyopathy: Code(s): I42.9 - Cardiomyopathy, unspecified Status: Acute Assessment and Plan: Echo Summary 11/23 ? 1. Complete two-dimensional, color flow and Doppler transthoracicechocardiogram is performed. ? 2. Right ventricular chamber dimension is normal. ? 3. Right ventricular systolic function is moderately reduced. TAPSE 1.3. ? 4. Left ventricular systolic function is moderately reduced, estimated at35-40%. ? 5. Left ventricular chamber dimension is normal. ? 6. There is no increased left ventricular wall thickness. ? 7. The left ventricular diastolic function is indeterminate. ? 8. Left atrial chamber dimension is moderately enlarged. ? 9. Right atrial chamber dimension is moderately enlarged. ? 10. There is mild mitral valve regurgitation. ? 11. There is mild to moderate tricuspid valve regurgitation. ? 12. Mild pulmonary hypertension, estimated pulmonary arterial systolic pressure is 35 mmHg. His stress test was negative Still may need a cardiac catheterization to rule out ischemia due to his arrhythmia (4) JACLYN (acute kidney injury): Code(s): N17.9 - Acute kidney failure, unspecified Status: Acute Assessment and Plan: Patient presented with JACLYN which improved and creatinine decreased Creatinine increased again Likely secondary to hypotension He did receive albumin bolus and blood pressures improved now and he is currently off of vasopressors CK level was normal Creatinine has normalized Renal ultrasound on 11/23 showed normal kidneys without any hydronephrosis Nephrology is following Monitor urine output electrolytes and creatinine Maintain blood pressure (5) Transaminitis: Code(s): R74.01 - Elevation of levels of liver transaminase levels Status: Acute Assessment and Plan: Right upper quadrant ultrasound - Mild gallbladder wall thickening, nonspecific. No visible gallstone evident, and there is negative sonographic Sepulveda's sign. Hepatitis panel negative Likely secondary to congestion versus hypoperfusion from cardiomyopathy Levels are improving Monitor (6) Type 2 diabetes mellitus: Qualifiers: Diabetes mellitus mcc insulin use: without mcc use Diabetes mellitus complication status: with hyperglycemia Qualified Code(s): E11.65 - Type 2 diabetes mellitus with hyperglycemia Code(s): E11.9 - Type 2 diabetes mellitus without complications Status: Chronic
[2022-12-01 09:15] LABS: Glucose Point of Care 109 mg/dl (65-105)
[2022-12-01 11:34] LABS: Glucose Point of Care 233 mg/dl (65-105)
[2022-12-01] MEDS: INSULIN ASPART (*BKC) 100 UNITS/ML SUB-Q (11:45)
--- NOTE | 2022-12-01 14:36 | P.PNNP_ITS ---
Progress Note: A&P Assessment and Plan (1) JACLYN (acute kidney injury): Code(s): N17.9 - Acute kidney failure, unspecified Status: Acute Assessment and Plan: * doing better * creatinine up again a few days ago * possibly related to transient hypotensive episodes (on 11/27/22) along with IV diuretics * improved and now normal * evaluation to date: * urine electrolytes prerenal (could just be reflective of diminished EF) * urine eosinophils rare * renal ultrasound without obstruction * CPK mildly elevated (but not enough to alter renal function) * likely due to previous hypotension coupled with prerenal factors from cardiomyopathy + bradycardia + afib and poss VT? * follow trend of repeat labs and UOP (2) Hyperkalemia: Code(s): E87.5 - Hyperkalemia Status: Acute Assessment and Plan: * resolved (3) Atrial flutter with rapid ventricular response: Code(s): I48.92 - Unspecified atrial flutter Status: Acute Assessment and Plan: * Cardiology following * s/p cardioversion (on 11/27/22) * on anticoagulation * further intervention given recent events? (4) Cardiomyopathy: Code(s): I42.9 - Cardiomyopathy, unspecified Status: Acute Assessment and Plan: * as noted by Echo * Cardiology following (5) Elevated LFTs: Code(s): R79.89 - Other specified abnormal findings of blood chemistry Status: Acute Assessment and Plan: * presumably due to shock liver from hypotension * INR elevated as well * Liver enzymes gradually better. (6) Hypotension: Code(s): I95.9 - Hypotension, unspecified Status: Acute Assessment and Plan: * doing better at this time * follow trend of hemodynamics (7) Diabetes mellitus: Qualifiers: Diabetes mellitus type: type 2 Diabetes mellitus ferry terminal agent insulin use: without ferry terminal agent use Diabetes mellitus complication status: with other specified complication Qualified Code(s): E11.69 - Type 2 diabetes mellitus with other specified complication Code(s): E11.9 - Type 2 diabetes mellitus without complications Status: Chronic Assessment and Plan: * follow accuchecks * glycemic control per hospitalists Will continue to follow. Subjective Date/time seen: 12/01/22 14:36 Interval history: alert. up in chair. feels okay. awaiting transfer to [facility] Exam Narrative: General: WD/WN male in NAD Heart: RRR, normal S1 and S2 Lungs: clear anteriorly but decreased at bases Abdomen: soft, nontender, nondistended, positive bowel sounds Extremities: no edema Skin: no rash Objective Data Vital Signs Vital Signs: Vital Signs - 24 hr 11/30/22 16:00 11/30/22 16:00 11/30/22 16:00 Temperature 97.9 F Pulse Rate 85 84 Respiratory Rate 17 Blood Pressure 109/84 Pulse Oximetry 99 Oxygen Delivery Room Air Oxygen Flow Rate 11/30/22 18:00 11/30/22 18:00 11/30/22 19:58 Temperature Pulse Rate 87 85 87 Respiratory Rate 18 Blood Pressure 113/92 H Pulse Oximetry 97 Oxygen Delivery Oxygen Flow Rate 11/30/22 20:00 11/30/22 20:00 11/30/22 20:00 Temperature 98.5 F
--- NOTE | 2022-12-01 14:36 | PM.PNNEP ---
Progress Note: A&P Assessment and Plan (1) JACLYN (acute kidney injury): Code(s): N17.9 - Acute kidney failure, unspecified Status: Acute Assessment and Plan: doing better creatinine up again a few days ago possibly related to transient hypotensive episodes (on 11/27/22) along with IV diuretics improved and now normal evaluation to date: urine electrolytes prerenal (could just be reflective of diminished EF) urine eosinophils rare renal ultrasound without obstruction CPK mildly elevated (but not enough to alter renal function) likely due to previous hypotension coupled with prerenal factors from cardiomyopathy + bradycardia + afib and poss VT? follow trend of repeat labs and UOP (2) Hyperkalemia: Code(s): E87.5 - Hyperkalemia Status: Acute Assessment and Plan: resolved (3) Atrial flutter with rapid ventricular response: Code(s): I48.92 - Unspecified atrial flutter Status: Acute Assessment and Plan: Cardiology following s/p cardioversion (on 11/27/22) on anticoagulation further intervention given recent events? (4) Cardiomyopathy: Code(s): I42.9 - Cardiomyopathy, unspecified Status: Acute Assessment and Plan: as noted by Echo Cardiology following (5) Elevated LFTs: Code(s): R79.89 - Other specified abnormal findings of blood chemistry Status: Acute Assessment and Plan: presumably due to shock liver from hypotension INR elevated as well Liver enzymes gradually better. (6) Hypotension: Code(s): I95.9 - Hypotension, unspecified Status: Acute Assessment and Plan: doing better at this time follow trend of hemodynamics (7) Diabetes mellitus: Qualifiers: Diabetes mellitus type: type 2 Diabetes mellitus prison insulin use: without terminal make up operator use Diabetes mellitus complication status: with other specified complication Qualified Code(s): E11.69 - Type 2 diabetes mellitus with other specified complication Code(s): E11.9 - Type 2 diabetes mellitus without complications Status: Chronic Assessment and Plan: follow accuchecks glycemic control per hospitalists Will continue to follow. Subjective Date/time seen: 12/01/22 14:36 Interval history: alert. up in chair. feels okay. awaiting transfer to [facility] Exam Narrative: General: WD/WN male in NAD Heart: RRR, normal S1 and S2 Lungs: clear anteriorly but decreased at bases Abdomen: soft, nontender, nondistended, positive bowel sounds Extremities: no edema Skin: no rash Objective Data Vital Signs Vital Signs: Vital Signs - 24 hr 11/30/22 16:00 11/30/22 16:00 11/30/22 16:00 Temperature 97.9 F Pulse Rate 85 84 Respiratory Rate 17 Blood Pressure 109/84 Pulse Oximetry 99 Oxygen Delivery Room Air Oxygen Flow Rate 11/30/22 18:00 11/30/22 18:00 11/30/22 19:58 Temperature Pulse Rate 87 85 87 Respiratory Rate 18 Blood Pressure 113/92 H Pulse Oximetry 97 Oxygen Delivery Oxygen Flow Rate 11/30/22 20:00 11/30/22 20:00 11/30/22 20:00 Temperature 98.5 F Pulse Rate 87 87 Respiratory Rate 19 Blood Pressure 99/84 L Pulse Oximetry 97 Oxygen Delivery Room Air Oxygen Flow Rate 11/30/22 22:03 11/30/22 22:00 11/30/22 22:00 Temperature Pulse Rate 87 85 85 Respiratory Rate 12 Blood Pressure 112/90 Pulse Oximetry 95 Oxygen Delivery Oxygen Flow Rate 11/30/22 23:23 11/30/22 23:40 12/01/22 00:00 Temperature Pulse Rate 83 Respiratory Rate Blood Pressure Pulse Oximetry 97 Oxygen Delivery Room Air Nasal Cannula Oxygen Flow Rate 2 12/01/22 00:00 12/01/22 02:00 12/01/22 02:00 Temperature 98.1 F Pulse Rate 83 75 75 Respiratory Rate 22 H 12 Blood Pressure 94/79 L 96/73 L Pulse Oximetry 99 98 Oxygen Delivery Oxygen Flow Rate 12/01/22 04:00
--- NOTE | 2022-12-01 15:45 | PM.TDS ---
Transfer Discharge Sum: Prov Provider Date of admission: 11/23/22 10:45 Primary care physician: PHYSICIAN NOT ON STAFF Admitting clinician: Luisa Jha DO Consults: 11/22/22 Consult to Physician Routine Comment: Consulting Provider: Jose Ramon Parish Reason for consultation: a flutter Has provider been notified: Yes 11/23/22 Consult to Physician Routine Comment: spoke with office @[id number](ER,US) Consulting Provider: Emma Lopez line o scribe operator/MD group to consult: Nephrology Reason for consultation: JACLYN with hyperkalemia Has provider been notified: Yes 11/24/22 Consult to Physician Routine Comment: spoke with GI Lab @[id number](ER,US) Consulting Provider: Gurpreet Lucas Reason for consultation: Significantly Elevated LFTs Has provider been notified: Yes 11/27/22 Wound/ET Consult Routine Reason for Consult:: front chest defib burn DS: Admitting Diagnosis Discharge Date 12/01/22 Admitting Diagnosis Fast heart rate DS: Discharge Diagnosis Discharge Diagnosis (1) Atrial flutter with rapid ventricular response: Code(s): I48.92 - Unspecified atrial flutter Status: Acute (2) Hypotension: Code(s): I95.9 - Hypotension, unspecified Status: Acute (3) Cardiomyopathy: Code(s): I42.9 - Cardiomyopathy, unspecified Status: Acute (4) JACLYN (acute kidney injury): Code(s): N17.9 - Acute kidney failure, unspecified Status: Acute (5) Transaminitis: Code(s): R74.01 - Elevation of levels of liver transaminase levels Status: Acute (6) Type 2 diabetes mellitus: Qualifiers: Diabetes mellitus long distance operator insulin use: without long distance operator use Diabetes mellitus complication status: with hyperglycemia Qualified Code(s): E11.65 - Type 2 diabetes mellitus with hyperglycemia Code(s): E11.9 - Type 2 diabetes mellitus without complications Status: Chronic (7) Electrolyte abnormality: Code(s): E87.8 - Other disorders of electrolyte and fluid balance, not elsewhere classified Status: Acute (8) Nausea: Code(s): R11.0 - Nausea Status: Acute (9) Lower extremity edema: Code(s): R60.0 - Localized edema Status: Acute (10) Urinary tract infection: Code(s): N39.0 - Urinary tract infection, site not specified Status: Acute (11) Nonsustained ventricular tachycardia: Code(s): I47.29 - Other ventricular tachycardia Status: Acute (12) Acute systolic CHF (congestive heart failure): Code(s): I50.21 - Acute systolic (congestive) heart failure Status: Acute (13) QT prolongation: Code(s): R94.31 - Abnormal electrocardiogram [ECG] [EKG] Status: Acute Transfer Discharge Sum: Med Medications Active and Home Medications: Home Medications Bifidobacterium infantis 4 mg capsule (Align) 4 mg PO QPM 11/23/22 [History Confirmed 11/23/22] milk thistle 200 mg capsule 200 mg PO DAILY 11/23/22 [History Confirmed 11/23/22] ikplymgn-[id number]-[id number] acid 300 mcg-lycopene 600 mcg-lutein 300 mcg tablet (Centrum Silver Men) 1 tablet PO DAILY 11/23/22 [History Confirmed 11/23/22] omega-3 fatty acids 1,000 mg PO QPM 11/23/22 [History Confirmed 11/23/22] saw palmetto 160 mg capsule 160 mg PO DAILY 11/23/22 [History Confirmed 11/23/22] vit C 250 mg-vit E 90 mg-zinc 40 mg-copper 1 [id number] capsule (PreserVision AREDS-2) 2 tablet PO BID 11/23/22 [History Confirmed 11/23/22] vitamin B complex 1 tablet PO DAILY 11/23/22 [History Confirmed 11/23/22] Active Medications Amiodarone HCl (Amiodarone Hcl 200 Mg Tablet) 200 mg PO Q8HR JUNI Last Admin: 12/01/22 15:27 Dose: 200 mg Amoxicillin (Amoxicillin 500 Mg Capsule) 500 mg PO Q8HR JUNI Stop: 12/05/22 21:59 Last Admin: 12/01/22 15:27 Dose: 500 mg Dextrose (Dextrose 50% 25 Gm/50 Ml Syringe) 12.5 gm IV PUSH PRN PRN; Protocol PRN Reason: Hypoglycemia Enoxaparin Sodium (Enoxaparin 100 Mg/Ml Syringe) 100 mg
[2022-12-01 16:40] LABS: Glucose Point of Care 181 mg/dl (65-105)
--- NOTE | 2022-12-01 17:36 | PC.NURSE ---
1720: Patient transfered to an outside hospital for further treatment. Report called to LOUIS Sanchez at 1440 and update given to EMS.
== END 2022-12-01 17:20 | disposition short-term general hospital (02) | DRG 201 ==
LOC: ANHED 09:20 → ANHIMU 12:06 → ANHICU 11-27 12:14 → ANH3MEDSUR 11-29 15:13 → ANHICU 11-29 19:03
PROVIDERS: Internal Medicine; Internal Medicine Cardiovascular Disease; Internal Medicine Nephrology; Nurse Practitioner Family; Physician Assistant; Specialist; Admitting Provider Student in an Organized Health Care Education/Training Program; Emergency Provider Emergency Medicine; Visit Provider Internal Medicine
PROC: 5A2204Z Restoration of Cardiac Rhythm, Single (ICD-10-PCS; CPT 93312; principal; 2022-11-27 09:00)
PROC: 5A2204Z Restoration of Cardiac Rhythm, Single (ICD-10-PCS; 2022-11-27 09:00)
DX: I48.92 Unspecified atrial flutter (principal); K72.00 Acute and subacute hepatic failure without coma; I50.21 Acute systolic (congestive) heart failure; I47.29 Other ventricular tachycardia; I95.89 Other hypotension; N17.9 Acute kidney failure, unspecified; I11.0 Hypertensive heart disease with heart failure; I42.9 Cardiomyopathy, unspecified; E11.65 Type 2 diabetes mellitus with hyperglycemia; I48.91 Unspecified atrial fibrillation; E87.5 Hyperkalemia; E78.5 Hyperlipidemia, unspecified; N39.0 Urinary tract infection, site not specified; R94.31 Abnormal electrocardiogram [ECG] [EKG]; Z20.822 Contact with and (suspected) exposure to COVID-19; Z87.891 Personal history of nicotine dependence; B95.2 Enterococcus as the cause of diseases classified elsewhere
CPT/HCPCS: 36415; 71045; 74176; 76705; 76775; 78452; 80048; 80053; 80061; 80069; 80074; 80076; 81001; 82550; 82570; 82948; 83010; 83036; 83605; 83615; 83690; 83735; 83880; 83935; 84100; 84132; 84145; 84300; 84443; 84484; 84540; 85025; 85027; 85055; 85610; 85730; 85999; 87077; 87086; 87088; 87186; 87636; 92960; 93005; 93017; 93306; 93312; 93320; 93325; 93970; 96365; 96366; 96367; 96372; 96375; 99285; A9270; A9502; G0378; J0282; J0290; J0610; J1265; J1650; J1815; J1940; J2370; J2405; J2704; J2785; J3475; J7030; J7040; J7060; P9045